=== PATIENT | female | born 1985 | race Caucasian/White ===

== ENCOUNTER 2020-09-25 08:49 | Emergency (ER) | payer OTHER, SELFPAY ==
--- NOTE | ~2020-09-25 | XR_ITS ---
EXAMINATION: XR ankle RT min 3V INDICATION: Right ankle pain and swelling TECHNIQUE: Four views of the right ankle are obtained. COMPARISON: None available FINDINGS: Ankle soft tissue swelling is present. There is no fracture, dislocation, or subluxation. D orsal and plantar calcaneal enthesophytes are noted. IMPRESSION: 1. Ankle soft tissue swelling without acute osseous abnormality identified. Reviewed, dictated and finalized at location A. ECT COACH
--- NOTE | 2020-09-25 09:03 | ED.GENADULT ---
HPI - General Adult General Chief complaint: Extremity Injury, Lower Stated complaint: Extremity Injury, Lower Time Seen by Provider: 09/25/20 09:03 Source: patient Mode of arrival: ambulatory Limitations: no limitations History of Present Illness HPI narrative: 34-year-old female patient presents to the [facility] with complaints of right foot pain x2 days. Patient states that she was working in the yard on Friday and thinks that she slipped off of a break and tripped and caught herself with her right foot. Patient states it really did not start hurting until that evening. Patient states she has been taking Tylenol and ibuprofen as well as elevating it and icing it. Denies any numbness or tingling to the toes of the foot. Related Data Home Medications Medication Instructions Recorded Confirmed aripiprazole 15 mg PO DAILY 09/25/20 09/25/20 trazodone 50 mg PO HS 09/25/20 09/25/20 Allergies Allergy/AdvReac Type Severity Reaction Status Date / Time naproxen Allergy Unknown Difficulty Verified 09/25/20 09:07 Breathing Review of Systems Review of Systems: Narrative: CONSTITUTIONAL: Denies fever, chills, or sweats. EYES: Denies visual changes, redness, or discharge. ENT: Denies rhinorrhea, congestion, sore throat, or otalgia. CARDIOVASCULAR: Denies chest pain, palpitations, or edema. RESPIRATORY: Denies cough or dyspnea. GASTROINTESTINAL: Denies abdominal pain, nausea, vomiting, or diarrhea. GENITOURINARY: Denies dysuria or hematuria. SKIN: Denies rash or itching. MUSCULOSKELETAL: Denies back pain, joint pain, or myalgia. Positive right ankle/foot pain x2 days NEUROLOGIC: Denies headache, numbness, or weakness. PSYCHIATRIC: Denies anxiety or depression. [facility] Past Medical History Medical History (Updated 09/25/20 @ 09:32 by DIANA Mejia) Arthritis Bilateral knees Bipolar disorder IBS (irritable bowel syndrome) Migraines Surgical History Surgical History (Updated 09/25/20 @ 09:05 by DIANA Mejia) History of orthopedic surgery Left knee x3, right knee x2, ligament repair to right foot Family History Family History Mother Patient's mother is in good health Family history of diabetes mellitus in first degree relative Father Patient's father is in good health Malignant neoplasm of prostate Grandparent Family history of coronary artery disease Diabetes mellitus Other Cerebrovascular accident Family history of arthritis Family history of gout Family history of malignant neoplasm of cervix Family history of malignant neoplasm of male breast Family history of mental disorder Hypertension Social History Social History Smoking status: Former smoker Alcohol intake: never Comments At the time of my signature I agree with nursing past medical history, surgical, social, and family history. There is no relevant family history pertinent to the presenting complaint. Exam Narrative: Exam Narrative: GENERAL: Well-appearing, well-nourished, and in no acute distress. HEAD: Normocephalic, atraumatic. EYES: PERRLA and EOMI. ENT: Nares clear, no rhinorrhea or epistaxis. Mucous membranes moist. NECK: Supple. No lymphadenopathy CHEST: Clear to auscultation. No respiratory distress. HEART: Regular rate and rhythm. No murmur heard. Normal peripheral pulses. ABDOMEN: Soft, nontender, nondistended, normal active bowel sounds. EXTREMITIES: Patient is able to bear weight and ambulate but has increased pain to the right foot and ankle. The R ankle is without obvious asymmetry or deformity when compared to the L ankle. Patient has slight pain with flex/extend, invert/clinton. No obvious surface trauma, ecchymosis, soft tissue swelling present to the lateral side of the right ankle. Bony tenderness to palpation over the lateral malleolus. Anterior talofibular ligament, posterior talofib
[2020-09-25 09:08] VITALS: BP 136/76; PULSE 92; RESP 20; TEMP 36.3; O2SAT 98
== END 2020-09-25 09:39 | disposition home or self-care (01) ==
PROVIDERS: Emergency Provider Nurse Practitioner Family; PCP Nurse Practitioner
DX: S93.401A Sprain of unspecified ligament of right ankle, initial encounter (principal); X58.XXXA Exposure to other specified factors, initial encounter; Y93.H2 Activity, gardening and landscaping; M17.0 Bilateral primary osteoarthritis of knee
CPT/HCPCS: 73610; 99203; G0463

== ENCOUNTER 2021-01-11 15:57 | Emergency (ER) | payer OTHER, SELFPAY ==
[2021-01-11 16:05] VITALS: BP 145/84; PULSE 80; RESP 18; TEMP 37; O2SAT 100
--- NOTE | 2021-01-11 16:07 | ED.URI ---
HPI - URI/Sore Throat General Chief Complaint: Upper Respiratory Infection Stated Complaint: Coughing, Chest pain Time Seen by Provider: 01/11/21 16:08 Source: patient and family Mode of arrival: ambulatory History of Present Illness HPI Narrative: PATIENT REPORTS SINUS CONGESTION 3 DAYS AGO WHICH HAS RESOLVED AND NOW HAS CHEST CONGESTION WITH COUGH. NO SHORTNESS OF BREATH AND NO CHEST PAIN. LOSE CONGESTED COUGH. NO FEVER. HAS TAKEN OTC MEDICATION WITH NO IMPROVEMENT. PATIENT HAS BEEN IMMUNIZED FOR COVID 19 AND DOES NOT WISH TO BE TESTED FOR COVID AT THIS VISIT. MD elicited complaint: cough Related Data Home Medications Medication Instructions Recorded Confirmed aripiprazole 15 mg PO DAILY 09/25/20 01/11/21 trazodone 50 mg PO HS 09/25/20 01/11/21 cholecalciferol (vitamin D3) 50 mcg PO DAILY 01/11/21 01/11/21 famotidine 20 mg PO DAILY 01/11/21 01/11/21 ferrous sulfate 325 mg PO DAILY 01/11/21 01/11/21 lamotrigine 25 mg PO HS 01/11/21 01/11/21 Allergies Allergy/AdvReac Type Severity Reaction Status Date / Time naproxen Allergy Unknown Difficulty Verified 09/25/20 09:07 Breathing Review of Systems Review of Systems: Narrative: CONSTITUTIONAL: Denies fever, chills, or sweats. EYES: Denies visual changes, redness, or discharge. ENT: Denies rhinorrhea, congestion, sore throat, or otalgia. CARDIOVASCULAR: Denies chest pain, palpitations, or edema. RESPIRATORY: Denies cough or dyspnea. GASTROINTESTINAL: Denies abdominal pain, nausea, vomiting, or diarrhea. GENITOURINARY: Denies dysuria or hematuria. SKIN: Denies rash or itching. MUSCULOSKELETAL: Denies back pain, joint pain, or myalgia. NEUROLOGIC: Denies headache, numbness, or weakness. PSYCHIATRIC: Denies anxiety or depression. All systems reviewed & are unremarkable except as noted in HPI and below PMFSH Past Medical History Medical History (Updated 01/11/21 @ 16:15 by DIANA Aparicio) Arthritis Bilateral knees Bipolar disorder IBS (irritable bowel syndrome) Migraines Surgical History Surgical History (Updated 09/25/20 @ 09:05 by DIANA Mejia) History of orthopedic surgery Left knee x3, right knee x2, ligament repair to right foot Family History Family History Mother Patient's mother is in good health Family history of diabetes mellitus in first degree relative Father Patient's father is in good health Malignant neoplasm of prostate Grandparent Family history of coronary artery disease Diabetes mellitus Other Cerebrovascular accident Family history of arthritis Family history of gout Family history of malignant neoplasm of cervix Family history of malignant neoplasm of male breast Family history of mental disorder Hypertension Social History Social History Smoking status: Former smoker Alcohol intake: never Gender identity (if verbalized by the patient): Female Comments At time of signature, agree with nursing past medical, surgical, social and family history. There is no relevant family history pertinent to the presenting complaint Exam Narrative: Exam Narrative: GENERAL: Well-appearing, well-nourished, and in no acute distress. HEAD: Normocephalic, atraumatic. EYES: PERRLA and EOMI. ENT: Nares clear, no rhinorrhea or epistaxis. Mucous membranes moist. NECK: Supple. CHEST: Clear to auscultation. No respiratory distress. HEART: Regular rate and rhythm. No murmur heard. Normal peripheral pulses. ABDOMEN: Soft, nontender, nondistended, normal active bowel sounds. EXTREMITIES: Normal range of motion. No edema. SKIN: Warm, dry, no rash. NEURO: No focal deficits. Alert and oriented x3. [place] Coma Scale Eye Opening: Spontaneous 4 [place] Coma Scale Motor: Obeys Commands 6 [place] Coma Scale Verbal: Oriented 5 [place] Coma Scale Total 15 Course Vital Signs Vital signs: Vital Signs Humphrey
[2021-01-11 16:12] VITALS: BP 145/84; PULSE 80; RESP 18; TEMP 37; O2SAT 100
== END 2021-01-11 16:19 | disposition home or self-care (01) ==
PROVIDERS: Emergency Provider Nurse Practitioner Family; PCP Internal Medicine
DX: J40 Bronchitis, not specified as acute or chronic (principal); Z87.891 Personal history of nicotine dependence; F31.9 Bipolar disorder, unspecified; M17.0 Bilateral primary osteoarthritis of knee
CPT/HCPCS: 99213; G0463

== ENCOUNTER 2022-05-10 18:55 | Emergency (ER) | payer OTHER, SELFPAY ==
--- NOTE | ~2022-05-10 | XR_ITS ---
EXAMINATION: XR foot LT min 3V DATE: 05/10/2022 19:13 INDICATION: Left foot injury and pain. TECHNIQUE: 4 views of left foot were obtained. COMPARISON: None. FINDINGS: Bone alignment is normal. No fracture. There is mild osteoarthritis of first metatarsophala ngeal joint and some of the interphalangeal joints. There are enthesophytes at the posterior and plan tar aspects of calcaneal tuberosity. IMPRESSION: 1. Mild polyarticular osteoarthritis. Reviewed, dictated and finalized at location A.
--- NOTE | ~2022-05-10 | XR_ITS ---
EXAMINATION: XR ankle LT min 3V DATE: 05/10/2022 19:13 INDICATION: Inversion injury. Ankle pain and swelling. TECHNIQUE: 4 views of left ankle were obtained. COMPARISON: None. FINDINGS: Bone alignment is normal. No fracture. The ankle joint space is normal. There is ankle soft tissue swelling. IMPRESSION: 1. No fracture. Reviewed, dictated and finalized at location A. IMPRESSION: 1. No fracture.
[2022-05-10 19:00] VITALS: BP 147/83; PULSE 111; RESP 14; TEMP 36.6; O2SAT 99
--- NOTE | 2022-05-10 19:14 | PC.NURSE ---
PT DECLINED ICE FOR COMFORT AND WHEELCHAIR TO RADIOLOGY
--- NOTE | 2022-05-10 19:53 | ED.LOWEXIN ---
HPI - Extremity Injury (Lower) General Chief Complaint: Extremity Injury, Lower Stated Complaint: left foot injury Time Seen by Provider: 05/10/22 19:53 Source: patient, RN notes reviewed and old records reviewed Mode of arrival: ambulatory Limitations: no limitations History of Present Illness HPI Narrative: 36-year-old female who presents to express care with complaints of left foot and ankle pain after stepping off of a curb tripped and fell twisting her ankle and foot. Patient reports that she just had surgery to left lateral foot approximately 1 month ago for removal of extra bone left foot with incision line noted to left lateral foot well approximated with no redness noted. Patient reports that her left foot and ankle are throbbing rates her pain 02/27, has taken some Ibuprofen. Patient is able to ambulate with limping gait states ambulation increases her pain. MD complaint: ankle injury and foot injury Onset (ago): hour(s) (2) Place: street/outdoors Severity scale (1-10): 8 Exacerbating factors: weight bearing and movement Treatments prior to arrival: NSAIDS Related Data Home Medications Medication Instructions Recorded Confirmed famotidine 20 mg tablet 20 mg PO DAILY 01/11/21 05/10/22 ferrous sulfate 325 mg (65 mg 325 mg PO DAILY 01/11/21 05/10/22 iron) tablet cariprazine 3 mg capsule (Vraylar) 3 mg PO DAILY 05/10/22 05/10/22 cholecalciferol (vitamin D3) 50 50 mcg PO DAILY 05/10/22 05/10/22 mcg (2,000 unit) tablet clonazepam 0.5 mg tablet 0.5 mg PO DAILY PRN Anxiety 05/10/22 05/10/22 escitalopram oxalate 20 mg tablet 20 mg PO DAILY 05/10/22 05/10/22 prazosin 1 mg capsule 1 mg PO DAILY 05/10/22 05/10/22 trazodone 100 mg tablet 100 mg PO HS PRN Sleep 05/10/22 05/10/22 Allergies Allergy/AdvReac Type Severity Reaction Status Date / Time naproxen Allergy Unknown Difficulty Verified 05/10/22 19:18 Breathing Review of Systems Review of Systems: CONSTITUTIONAL: Denies fever, chills, or sweats. CARDIOVASCULAR: Denies chest pain, palpitations, or edema. RESPIRATORY: Denies cough or dyspnea. SKIN: Denies rash or itching. Denies laceration or abrasions MUSCULOSKELETAL: Reports pain to her left ankle and left foot after stepping off a curb and falling NEUROLOGIC: Denies numbness, or weakness. All systems reviewed & are unremarkable except as noted in HPI and below PMFSH Past Medical History Medical History (Updated 05/11/22 @ 00:00 by Kristen Daemon) Arthritis Bilateral knees Bipolar disorder IBS (irritable bowel syndrome) Migraines Surgical History Surgical History (Updated 05/11/22 @ 10:38 by Carlota Fitzgerald NP) History of orthopedic surgery Left knee x3, right knee x2, ligament repair to right foot S/P foot surgery, left removal of bone left foot 03/2022 Family History Family History Mother Patient's mother is in good health Family history of diabetes mellitus in first degree relative Father Patient's father is in good health Malignant neoplasm of prostate Grandparent Family history of coronary artery disease Diabetes mellitus Other Cerebrovascular accident Family history of arthritis Family history of gout Family history of malignant neoplasm of cervix Family history of malignant neoplasm of male breast Family history of mental disorder Hypertension Social History Social History Smoking status: Former smoker Alcohol intake: never Gender identity (if verbalized by the patient): Female Comments At time of signature, agree with nursing past medical, surgical, social and family history. There is no relevant family history pertinent to the presenting complaint Exam Narrative: GENERAL: Well-appearing, well-nourished, and in no acute distress. HEAD: Normocephalic, atraumatic. EYES: PERRLA, conjunctivae clear NECK: Supple. CHEST: Speaks in
== END 2022-05-10 20:06 | disposition home or self-care (01) ==
PROVIDERS: Emergency Provider Registered Nurse
DX: S96.912A Strain of unspecified muscle and tendon at ankle and foot level, left foot, initial encounter (principal); W17.89XA Other fall from one level to another, initial encounter; M17.9 Osteoarthritis of knee, unspecified; Z87.891 Personal history of nicotine dependence
CPT/HCPCS: 73610; 73630; 99213; G0463

== ENCOUNTER 2022-05-19 08:51 | Emergency (ER) | payer OTHER, SELFPAY ==
[2022-05-19 08:58] VITALS: BP 154/86; PULSE 89; RESP 20; TEMP 36.8; O2SAT 99
--- NOTE | 2022-05-19 09:48 | ED.URI ---
HPI - URI/Sore Throat General Chief Complaint: Upper Respiratory Infection Stated Complaint: Congestion/Cough/Fever Time Seen by Provider: 05/19/22 09:25 Source: patient, RN notes reviewed and old records reviewed Mode of arrival: ambulatory Limitations: no limitations History of Present Illness HPI Narrative: 36-year-old female who presents to [facility] with complaints of sore throat since Friday with some runny nose and cough and headache.. Patent states that she started on Augmentin yesterday for foot infection.Patient reports that she has had a sore throat since Friday with fever up to 102F. She states that has been taking Chantell [place] cold and flu for her symptoms MD elicited complaint: fever, cough, sore throat, rhinorrhea and nasal congestion Onset (ago): day(s) (5 days) Pain scale (0-10): 8 Able to tolerate fluids by mouth: Yes Treatments prior to arrival: other (Presently on Augmentin for foot infection) Related Data Home Medications Medication Instructions Recorded Confirmed famotidine 20 mg tablet 20 mg PO DAILY 01/11/21 05/19/22 ferrous sulfate 325 mg (65 mg 325 mg PO DAILY 01/11/21 05/19/22 iron) tablet cariprazine 3 mg capsule (Vraylar) 3 mg PO DAILY 05/10/22 05/19/22 cholecalciferol (vitamin D3) 50 50 mcg PO DAILY 05/10/22 05/19/22 mcg (2,000 unit) tablet clonazepam 0.5 mg tablet 0.5 mg PO DAILY PRN Anxiety 05/10/22 05/19/22 escitalopram oxalate 20 mg tablet 20 mg PO DAILY 05/10/22 05/19/22 prazosin 1 mg capsule 1 mg PO DAILY 05/10/22 05/19/22 trazodone 100 mg tablet 100 mg PO HS PRN Sleep 05/10/22 05/19/22 amoxicillin 500 mg-potassium tablet 05/19/22 clavulanate 125 mg tablet Allergies Allergy/AdvReac Type Severity Reaction Status Date / Time naproxen Allergy Unknown Difficulty Verified 05/10/22 19:18 Breathing Review of Systems Review of Systems: CONSTITUTIONAL: Positive malaise, chills, sweats, or fever. EYES: Denies visual changes, redness, or discharge. ENT: Reports rhinorrhea, congestion,no sinus pain, otalgia positive sore throat. CARDIOVASCULAR: Denies chest pain, palpitations, or edema. RESPIRATORY: Reports cough.? Denies dyspnea. GASTROINTESTINAL: Denies abdominal pain, nausea, vomiting, diarrhea SKIN: Denies rash or itching. MUSCULOSKELETAL:Reports myalgia. NEUROLOGIC:Reports headache. All systems reviewed & are unremarkable except as noted in HPI and below PMFSH Past Medical History Medical History (Updated 05/20/22 @ 00:00 by Kristen Daantoni) Arthritis Bilateral knees Bipolar disorder IBS (irritable bowel syndrome) Migraines Surgical History Surgical History (Updated 05/11/22 @ 10:38 by Carlota Fitzgerald NP) History of orthopedic surgery Left knee x3, right knee x2, ligament repair to right foot S/P foot surgery, left removal of bone left foot 03/2022 Family History Family History Mother Patient's mother is in good health Family history of diabetes mellitus in first degree relative Father Patient's father is in good health Malignant neoplasm of prostate Grandparent Family history of coronary artery disease Diabetes mellitus Other Cerebrovascular accident Family history of arthritis Family history of gout Family history of malignant neoplasm of cervix Family history of malignant neoplasm of male breast Family history of mental disorder Hypertension Social History Social History Smoking status: Former smoker Alcohol intake: never Gender identity (if verbalized by the patient): Female Comments At time of signature, agree with nursing past medical, surgical, social and family history. There is no relevant family history pertinent to the presenting complaint Exam Narrative: GENERAL: Well-appearing, well-nourished, and in no acute distress. HEAD: Normocephalic EYES: PERRLA, conjunctivae tripp
== END 2022-05-19 10:15 | disposition home or self-care (01) ==
PROVIDERS: Emergency Provider Registered Nurse
DX: J02.0 Streptococcal pharyngitis (principal); Z20.822 Contact with and (suspected) exposure to COVID-19; M17.0 Bilateral primary osteoarthritis of knee
CPT/HCPCS: 87426; 87804; 87880; 99213; C9803; G0463

== ENCOUNTER 2023-10-14 14:39 | Emergency (ER) | payer OTHER, SELFPAY ==
--- NOTE | ~2023-10-14 | XR_ITS ---
EXAMINATION: XR chest 2V DATE: 10/14/2023 16:08 INDICATION: Cough. TECHNIQUE: PA and lateral views of the chest were obtained. COMPARISON: None FINDINGS: Airspace opacities in the lingula and possibly also in the right middle lobe which could represent at electasis or pneumonia. Approximately 1 cm subtle nodular opacity at the lateral basilar right lower lobe. No pleural effusion or pneumothorax. The cardiomediastinal silhouette is normal. Mild thoracic spondylosis. IMPRESSION: 1. Opacities in the lingula and possibly also the right middle lobe which could represent atelectasis or pneumonia. 2. Approximately 1 cm right lower lobe nodule. Recommend further evaluation with low-dose noncontrast chest CT. Reviewed, dictated and finalized at location A. IMPRESSION: 1. Opacities in the lingula and possibly also the right middle lobe which could represent atelectasis or pneumonia. 2. Approximately 1 cm right lower lobe nodule. Recommend further evaluation wit h low-dose noncontrast chest CT.
[2023-10-14 14:48] VITALS: BP 142/80; PULSE 101; RESP 20; TEMP 37.2; O2SAT 98
--- NOTE | 2023-10-14 15:33 | ED.URI ---
HPI - URI/Sore Throat General Chief Complaint: Unspecified Stated Complaint: painful breathing Time Seen by Provider: 10/14/23 15:31 Source: patient, RN notes reviewed and old records reviewed Mode of arrival: ambulatory Limitations: no limitations History of Present Illness HPI Narrative: 37-year-old female to Express Care for complaint right shoulder and right upper chest discomfort when taking a deep breath for 2 days. Patient endorses history of pneumonia and states that this is how she usually feels prior to pneumonia diagnosis. Patient denies chest pain or shortness of breath. Patient denies cough, fever, sore throat, GI complaints. Patient able to tolerate fluids by mouth. On exam patient in no acute distress. Respirations even and nonlabored. Patient able to speak in full sentences Related Data Home Medications Medication Instructions Recorded Confirmed escitalopram oxalate 20 mg tablet 20 mg PO DAILY 05/10/22 10/14/23 prazosin 1 mg capsule 1 mg PO DAILY 05/10/22 10/14/23 trazodone 100 mg tablet 100 mg PO HS PRN Sleep 05/10/22 10/14/23 losartan 25 mg tablet 25 mg PO DAILY 10/14/23 10/14/23 lurasidone 80 mg tablet 80 mg PO DAILY 10/14/23 10/14/23 Allergies Allergy/AdvReac Type Severity Reaction Status Date / Time naproxen Allergy Unknown Difficulty Verified 10/14/23 15:26 Breathing Review of Systems Review of Systems: All systems reviewed & are unremarkable except as noted in HPI and below Constitutional: Constitutional: Reports as per HPI, Denies body ache(s), Denies chills, Denies fatigue and Denies fever(s) Eyes: Eyes: Reports no additional eye complaints ENT: Reports system reviewed and no additional complaints, except as documented and Denies sore throat Cardiovascular: Cardiovascular: Reports no additional cardiovascular complaints, Denies chest pain and Denies dyspnea Respiratory: Respiratory: Reports no additional respiratory complaints, Denies cough, Reports pain on inspiration and Denies dyspnea Musculoskeletal: Musculoskeletal: Reports no additional musculoskeletal complaints Neurologic: Reports system reviewed and no additional complaints, except as documented Psychiatric: Psychiatric: Reports no additional psychiatric complaints PMFSH Past Medical History Medical History Arthritis Bilateral knees Bipolar disorder IBS (irritable bowel syndrome) Migraines Surgical History Surgical History History of orthopedic surgery Left knee x3, right knee x2, ligament repair to right foot S/P foot surgery, left removal of bone left foot 03/2022 Family History Family History Mother Patient's mother is in good health Family history of diabetes mellitus in first degree relative Father Patient's father is in good health Malignant neoplasm of prostate Grandparent Family history of coronary artery disease Diabetes mellitus Other Cerebrovascular accident Family history of arthritis Family history of gout Family history of malignant neoplasm of cervix Family history of malignant neoplasm of male breast Family history of mental disorder Hypertension Social History Social History Smoking status: Former smoker Alcohol intake: never Gender identity (if verbalized by the patient): Female Comments At the time of my signature, I reviewed and agree with the nursing past medical, surgical, social, and family history. There is no relevant family history pertinent to the patient complaint. Exam Const: General: cooperative, no acute distress, alert, poor hygiene, tired appearing, uncomfortable, well nourished and obese; No in distress Nutritional Appearance: well nourished Orientation/consciousness: patient oriented x3 Limitations: no
== END 2023-10-14 16:47 | disposition home or self-care (01) ==
PROVIDERS: Emergency Provider Nurse Practitioner Family
DX: J18.9 Pneumonia, unspecified organism (principal); M17.0 Bilateral primary osteoarthritis of knee; F31.9 Bipolar disorder, unspecified
CPT/HCPCS: 71046; 99213; G0463

== ENCOUNTER 2023-11-02 12:53 | Emergency (ER) | payer OTHER, SELFPAY ==
--- NOTE | ~2023-11-02 | XR_ITS ---
EXAMINATION: XR chest 2V DATE: 11/02/2023 13:18 INDICATION: Cough. TECHNIQUE: PA and lateral views of the chest were obtained. COMPARISON: Chest radiograph dated 10/14/2023 FINDINGS: 1.5 similar nodular opacity at the right costophrenic angle no other airspace opacities, pulmonary ed brittny, pleural effusion or pneumothorax. The cardiomediastinal silhouette is normal. Mild thoracic spon dylosis. IMPRESSION: 1. Indeterminate 1.5 cm nodular opacity projecting over the right costophrenic angle. Recommend chest CT for further evaluation. Reviewed, dictated and finalized at location A.
[2023-11-02 12:59] VITALS: BP 117/63; PULSE 80; RESP 20; TEMP 37; O2SAT 95
--- NOTE | 2023-11-02 13:10 | ED.URI ---
HPI - URI/Sore Throat General Chief Complaint: Upper Respiratory Infection Stated Complaint: Cough History of Present Illness HPI Narrative: Patient presents with a pretty productive cough shortness of breath at times. Patient states she was treated for pneumonia almost 1 month ago thinks she felt better after the medication but feels the same as she did before. Patient states she did follow-up with her PCP and has been cleared to have bariatric surgery the end of this month. Patient is a nonsmoker denies any lung problems and is not taking anything [id number] for her symptoms per Related Data Home Medications Medication Instructions Recorded Confirmed escitalopram oxalate 20 mg tablet 20 mg PO DAILY 05/10/22 10/14/23 prazosin 1 mg capsule 1 mg PO DAILY 05/10/22 10/14/23 trazodone 100 mg tablet 100 mg PO HS PRN Sleep 05/10/22 10/14/23 losartan 25 mg tablet 25 mg PO DAILY 10/14/23 10/14/23 lurasidone 80 mg tablet 80 mg PO DAILY 10/14/23 10/14/23 Allergies Allergy/AdvReac Type Severity Reaction Status Date / Time naproxen Allergy Unknown Difficulty Verified 10/14/23 15:26 Breathing Review of Systems Review of Systems: CONSTITUTIONAL: Denies fever, chills, or sweats. EYES: Denies visual changes, redness, or discharge. ENT: Denies rhinorrhea, congestion, sore throat, or otalgia. CARDIOVASCULAR: Denies chest pain, palpitations, or edema. RESPIRATORY: Denies cough or dyspnea. GASTROINTESTINAL: Denies abdominal pain, nausea, vomiting, or diarrhea. GENITOURINARY: Denies dysuria or hematuria. SKIN: Denies rash or itching. MUSCULOSKELETAL: Denies back pain, joint pain, or myalgia. NEUROLOGIC: Denies headache, numbness, or weakness. PSYCHIATRIC: Denies anxiety or depression. [facility] [place] Past Medical History Medical History Arthritis Bilateral knees Bipolar disorder IBS (irritable bowel syndrome) Migraines Surgical History Surgical History History of orthopedic surgery Left knee x3, right knee x2, ligament repair to right foot S/P foot surgery, left removal of bone left foot 03/2022 Family History Family History Mother Patient's mother is in good health Family history of diabetes mellitus in first degree relative Father Patient's father is in good health Malignant neoplasm of prostate Grandparent Family history of coronary artery disease Diabetes mellitus Other Cerebrovascular accident Family history of arthritis Family history of gout Family history of malignant neoplasm of cervix Family history of malignant neoplasm of male breast Family history of mental disorder Hypertension Social History Social History Smoking status: Former smoker Alcohol intake: never Gender identity (if verbalized by the patient): Female Comments At time of signature, agree with nursing past medical, surgical, social and family history. There is no relevant family history pertinent to the presenting complaint Exam Narrative: GENERAL: Well-appearing, well-nourished, and in no acute distress. HEAD: Normocephalic, atraumatic. EYES: PERRLA and EOMI. ENT: Nares clear, no rhinorrhea or epistaxis. Mucous membranes moist. NECK: Supple. CHEST: Lungs diminished in bases with few scattered expiratory wheezes. No respiratory distress. HEART: Regular rate and rhythm. No murmur heard. Normal peripheral pulses. ABDOMEN: Soft, nontender, nondistended, normal active bowel sounds. EXTREMITIES: Normal range of motion. No edema. SKIN: Warm, dry, no rash. NEURO: No focal deficits. Alert and oriented x3. [place] Coma Scale Eye Opening: Spontaneous 4 [place] Coma Scale Motor: Obeys Commands 6 Eryn Coma Scale Verbal: Oriented 5 [place]ryn Coma Scale Total 15 Course Cour
== END 2023-11-02 14:04 | disposition home or self-care (01) ==
PROVIDERS: Emergency Provider Nurse Practitioner Family; PCP Family Medicine
DX: J18.9 Pneumonia, unspecified organism (principal); Z87.891 Personal history of nicotine dependence; M17.0 Bilateral primary osteoarthritis of knee; F31.9 Bipolar disorder, unspecified
CPT/HCPCS: 71046; 99213; G0463

== ENCOUNTER 2024-10-09 08:20 | Emergency (ER) | payer OTHER, SELFPAY ==
--- OUTSIDE RECORDS SUMMARY | 2024-10-09 08:23 | XMS_ITS | Clinical Summary ---
Author Organization [facility] Address [address] [place] [address] Care Team Providers Care Junior Accountant Name Role Phone Unavailable Primary Care Provider Unavailabl e Source Comments [facility],non-owned Affiliates and Associated Physician Practices is amultiple site organization consisting of ambulatory clinics and hospital sitesin [place], [place], [place] and [place]. This disclosure is being madepursuant to the Care Everywhere program and may not contain all information available regarding this patient. Last updated 18.[facility] Allergies Active Allergy Reactions Criticality Noted Date Comments Naproxen Shortness of Breath High 03/21/2020 Medications Be aware that medications may not be up to date on this document. Always verify current medications with the patient. No known medications Active Problems No known active problems Social History Tobacco Use Types Packs/Day Years Used Date Smoking Tobacco: Never Smokeless Tobacco: Never Alcohol Use Standard Drinks/Week Comments Yes 0 (1 standard drink = 0.6 oz pur e alcohol) AUDIT-C Answer Date Recorded Q1: How often do you have a drink containing alc ohol? 2-4 times a month 03/21/2020 Average Number of Drinks Not on file 020 Frequency of Binge Drinking Not on file 07/2019 Sex and Gender Information Value Date Recorded Sex Assigned at Not on file Gender Identity Not on file Sexual Orientation Not on file Last Filed Vital Signs Vital Sign Reading Time Taken Comments Blood Pressure - - Pulse - - Temperature - - Respiratory Rate - - Oxygen Saturation - - Inhaled Oxygen Concentration - - Weight 141.5 kg (312 lb) 03/21/2020 2:25 PM CDT Height 154.9 cm (5' 1 ) 03/21/2020 2:25 PM CDT Body Mass Index 58.95 03/21/2020 2:25 PM CDT Plan of Treatment Health Maintenance Due Date Last Done Comments PAP SMEAR 1986 HIV SCREENING 2001 HEPATITIS C SCREENING 10/24/2004 DTAP/TDAP/TD VACCINES (1 - Tdap) 2005 HEPATITIS B VACCINE (1 of 3 - 19+ 3-dose series) 2005 COVID-19 VACCINE ( - 2023-2 5 season) 2024 INFLUENZA VACCINE (#1) 2024 9, 05/14/2018, 03/29/2014 DEPRESSION SCREENING 07/21/2024 ZOSTER VACCINE (1 of 2) 2036 HIB VACCINE Aged Out No longer eligi ble based on patient's age to complete this topic HPV VACCINE Aged Out No longer eligi ble based on patient's age to complete this topic MENINGOCOCCAL (Group B) VACCINE SHARED DECISION-MAKING Aged Out No longer eligible based on patient's age to complete this topic MENINGOCOCCAL GROUPS A/C/Y/W VACCINE Aged Out No longer eligible b ased on patient's age to complete this topic PNEUMOCOCCAL VACCINE Aged Out No long er eligible based on patient's age to complete this topic Goals Goal Patient Goal Type Associated Problems Recent Progress Patient-Stated? Author Mobility General No Bianka Miramontes RN Note: Expected end date: 05/20/2020 The goal is to maintain or improve your mobility at the optimum level for you. Interventions:
--- OUTSIDE RECORDS SUMMARY | 2024-10-09 08:23 | XMS_ITS | Clinical Summary ---
Author Organization [facility] Medical Office Building [address] Address [address] [place] [address] Care Team Providers [employer] Name Role Phone Sabrina Ferreira DPM Unavailable [phone] Laina Terrell PT Unavailable Unavailable Kenia Villagomez MD PhD Unavailable Tello Pacheco MD Unavailable [phone] Faye Paul MD Primary Care Provide r Allergies Active Allergy Reactions Criticality Noted Date Comments Naltrexone-Bupropion Other (See comments) Low 09/15 Patient states she felt dizzy and shaky on this medication Naproxen Shortness of breath High 10/01/2019 Topiramate Anaphylaxis High 09/08/2024 She states she had trouble breathing and in hospital for this reaction. Was being used for migraine prevention. Venom-Honey Bee Shortness of breath,Nausea And Vomiting High 01/29/2018 Medications hydrOXYzine (VISTARIL) 25 mg capsuleIndications :anxiety Take 1 capsule (25 mg total) by mouth 4 (four) times a day as needed for anxiety 12/16/19 23 Active escitalopram (LEXAPRO) 20 mg tablet TAKE 1 TABLET BY MOUTH EVERY DAY FOR 30 DAYS 02/20/20 23 Active prazosin (MINIPRESS) 2 mg capsuleIndications :Chronic PTSD with Trauma Nightmares Take 1 capsule (2 mg total) by mouth nightly as needed 02/22/20 23 Active lurasidone (LATUDA) 80 mg tabletIndications: Schizophrenia Take 1 tablet (80 mg total) by mouth nightly 06/29/20 Active ergocalciferol (VITAMIN D) 50,000 unit capsule Take 1 capsule (50,000 Units total) by mouth once a week 12 capsule 09/15/19 24 Active Additional Information Patient taking differently:50,000 Units oral Weekly,Indications: supplement, Informant: Self, Reported on 06/03/2024 cyclobenzaprine (FLEXERIL) 10 mg tabletIndications: Muscle Spasm Take 1 tablet (10 mg total) by mouth every 8 (eight) hours Post surgery: Every 8 hours for 4 days 12 tablet 11/05/19 24 Active cyanocobalamin (Vitamin B-12) 500 mcg tabletIndications: Prevention of Vitamin B12 Deficiency Take 1 tablet (500 mcg total) by mouth daily Start post Surgery 90 tablet 3 11/05/19 24 Active ferrous sulfate 325 mg (65 mg of elemental iron) tabletIndications: Iron Deficiency Anemia Take 1 tablet (325 mg total) by mouth daily Start post-surgery. Take with food and avoid taking within 2 hours of calcium 90 tablet 3 11/05/19 24 025 Active calcium citrate-vitamin D3 200 mg-6.25 mcg (250 unit) tabletIndications: Hypocalcemia Prevention Take 2 tablets by mouth 3 (three) times a day Start post-surgery 540 tablet 3 11/05/19 24 025 Active multivitamin with iron-mineral tablet Take 2 tablet/capsule by mouth daily Start Post Surgery 180 tablet 3 11/05/19 24 025 Active losartan (COZAAR) 25 mg tablet TAKE 1 TABLET (25 MG TOTAL) BY MOUTH DAILY. 90 tablet 1 04/12/20 24 Active clonazePAM (KlonoPIN) 0.5 mg disintegrating tablet 0 04/05/20 24 Active lurasidone (LATUDA) 20 mg tablet 04/05/20 24 Active traZODone (DESYREL) 100 mg tablet 04/05/20 24 Active naltrexone (DEPADE) 50 mg tabletIndications: Binge eating,BMI 45.0-49.9, adult (HCC) Take 0.5 tablets (25 mg total) by mouth daily for 7 days, THEN 1 tablet (50 mg total) daily. 30 tablet 1 09/08/19 25 025 Discontin ued(Other ) Active Problems Problem Noted Date Diagnosed Date Nausea and vomiting 01/06/2024 Lung nodule 11/25/2023 Assessment & Plan (11/25/2023 12:18 PM CDT): New concern Seen on xray Will need a ct scan in 1 year according to report Will scan report into the system Ct scan orderede Status post bariatric surgery 11/24/2023 Prediabetes 08/14/2023 Assessment & Plan (08/14/2023 12:05 PM METAL FRAMER): Lab Results Component Value Date HGBA1C 6.2 (H) 08/06/2023 Stable Continue to monitor Other insomnia 05/06/2023 Assessment & Plan (05/06/2023 2:11 PM CDT): Chronic, multifactorial due to untreated obstructive sleep apnea and mood disorder. Trial of doxepin for sleep maintenance insomnia. May consider temazepam in future, though this would require discontinuing clonazepam use at bedtime. Post traumatic stress disorder (PTSD) 04/07/2023 Schizoaffective disorder 04/07/2023 Preop examination 03/10/2023 Assessment & Plan (10/21/2023 3:37 PM CDT): She understands that no procedure is risk-free but accepts those as discussed during OV and wishes to proceed. She was instructed to contact us if any new symptoms or problems arise between now and surgery date. According to the RCRI, the patient's number of risk factors stratifies patient to class III, which carries a 10.1% risk of major cardiovascular complications She is medically optimized for surgery Assessment & Plan (07/04/2023 8:13 AM METAL FRAMER): Pt comes in at behest of Dr. Pacheco for preoperative evaluation. She will be having Gastric Bypass She denies chest pain, palpitations, dyspnea on exertion, or any other symptoms. She understands that no procedure is risk-free but accepts those as discussed during OV and wishes to proceed. She was instructed to contact us if any new symptoms or problems arise between now and surgery date. According to the RCRI, the patient's number of risk factors stratifies patient to class 1, which carries a 3.9% risk of major cardiovascular complications Patient denies any hx of complications with anesthesia, states she has never been told she has difficult airway. My medical standpoint patient is medically stable and cleared for gastric by pass surgery- pending CXR results. This preop clearance is only good for 30 days from today's examination. If surgery scheduled past 30 days from this visit, she was advised that she would need to be seen again for preop clearance. Arthritis 03/03/2023 Skin lesion of right leg 02/19/2023 Assessment & Plan (02/19/2023 9:49 AM CDT): New Low suspicion for cancer Possible ingrown hair Referral to derm given Blurry vision 12/27/2022 Assessment & Plan (12/27/2022 2:52 PM CDT): Follows with quality assurance for the dilation exam CT of the head stat to rule out any mass Follow-up in 2 weeks or sooner for worsening symptoms Nocturia 12/27/2022 Assessment & Plan (02/19/2023 9:40 AM CDT): No improvement even after stopping the lasix Had UA done at last visit Lab Results Component Value Date HGBA1C 6.1 (H) 10/09/2022 Referral to urology Follow-up prn Assessment & Plan (12/27/2022 2:54 PM CDT): New worsening Likely from the Lasix CMP ordered POCT glucose in office 107 UA show blood from patient being on her cycle, no other signs of infection Lab Results Component Value Date HGBA1C 6.1 (H) 10/09/2022 Stop the Lasix and only take it as needed Follow-up in 2 weeks Chronic midline thoracic back pain 11/05/2022 Assessment & Plan (11/05/2022 2:46 PM CDT): Chronic possible from fall and weight gain combined Not improving Xray of the thoracic and lumbar spine Physical therapy Continue with tylneol and ibuprofen as needed F/u in 2 months Leg swelling 11/05/2022 Assessment & Plan (11/05/2022 3:00 PM CDT): New worsening cmp unremarkable Recommend compression socks for swelling Lasix 40mg as needed Echo ordered F/u in 2 weeks Deep vein thrombosis (DVT) of lower extremity Overview (11/20/2023): Provoked Completed 6 months of AC Assessment & Plan (11/05/2022 2:32 PM CDT): Provoked dvt 2/2 foot surgery Complete total 6 months of xarelto Will be done in february Assessment & Plan (09/04/2022 1:46 PM METAL FRAMER): Provoked dvt 2/2 foot surgery Continue xarelto for 6 months Pressure in head 05/13/2022 Assessment & Plan (05/13/2022 9:56 AM CDT): Likely 2/2 to increase stress and elevated bp See htn recommendation Acute left ankle pain 05/13/2022 Assessment & Plan (05/13/2022 9:58 AM CDT): 2/2 fall Xray at [facility] negative for fracture Rest ice compress and elevate F/u in 1 month. If no improvement will get MRI to evaluate for ligament tear Numbness and tingling of right arm 01/24/2022 Assessment & Plan (01/24/2022 3:07 PM CDT): EMG/NCS for R forearm and hand numbness and tingling Cbc, cmp, iron panel and vitamin b12 ordered tsh F/u in 1 month Family history of cirrhosis of liver 01/24/2022 Assessment & Plan (02/19/2023 9:38 AM CDT): Will get cmp in June for monitoring Assessment & Plan (01/24/2022 3:10 PM CDT): Bilirubin, AST, ALt, alk phos have been wnl Will continue to closely monitor Mother's business services vice president recommended she come and be seen Encounter for wellness examination 11/13/2021 Assessment & Plan (11/24/2023 12:45 PM CDT): Ordered CBC, cmp, lipid, hgb a1c, vit d Pap smear up to date F/u in 1 year for annual Assessment & Plan (11/04/2022 9:37 PM CDT): Ordered CBC, cmp, lipid, hgb a1c, Pap smear up to date F/u in 1 year for annual Assessment & Plan (11/13/2021 10:48 AM CDT): Will get labs from previous office done 1 week ago rtc in 2 weeks for pap F/u in 1 year for annual Epigastric pain 11/13/2021 Assessment & Plan (11/13/2021 10:49 AM CDT): Endoscopy 1 year ago showed healing ulcer H.pylori test negative 1 year ago Continue pepcid as needed Start omeprazole daily F/u in 2 months If no improvement will refer to GI Recurrent major depressive disorder, in remissio n 11/13/2021 Assessment & Plan (11/24/2023 12:46 PM CDT): Stable In remission Continue with lexapro 10mg daily Follows with psychiatry Assessment & Plan (11/04/2022 9:28 PM CDT): Stable In remission Continue with lexapro 10mg daily Follows with psychiatry Assessment & Plan (11/13/2021 10:52 AM CDT): Stable In remission Continue with lexapro 10mg daily Follows with psychiatry Referred otalgia of left ear 02/16/2021 Assessment & Plan (02/17/2021 4:31 PM CDT): Doxycycline twice daily Call dental office Peridex mouth swish and spit after meals and before bedtime Softer diet, avoid chewing with these teeth Ibuprofen 400 mg and Tylenol 500 mg every 4-6 hours as needed for pain Plantar fascial fibromatosis 12/05/2020 Overview (12/05/2020): Added automatically from request for surgery [id number] Calcaneal spur of left foot 12/05/2020 Overview (12/05/2020): Added automatically from request for surgery [id number] Pulsatile tinnitus of right ear 10/17/2020 Assessment & Plan (02/17/2021 4:31 PM CDT): New referral placed to Otology for Right pulsatile tinnitus and dehiscent jugular bulb per CT temporal bone Assessment & Plan (10/17/2020 10:03 AM CDT): Referral to Otology regarding dehiscent jugular bulb and Right sided pulsatile tinnitus Continue to work on blood pressure Tinnitus of right ear 08/21/2020 Assessment & Plan (08/21/2020 2:16 PM METAL FRAMER): Hearing test CT Angiogram Head and Neck - call with results Avoid salt or salt containing foods and fluids Shoulder pain, left 04/21/2020 Positive cardiac stress test 02/25/2020 Other chest pain 02/25/2020 Assessment & Plan (03/07/2022 12:19 PM CDT): EKG in office showed normal sinus rhythm Sent to emergency room to rule out ACS given her hx F/u after ER visit Pain in both feet 10/01/2019 Acute otitis media 03/02/2019 ADHD 06/16/2018 Assessment & Plan (11/24/2023 12:46 PM CDT): Continue following with psych Assessment & Plan (11/04/2022 9:29 PM CDT): Continue following with psych Chronic left shoulder pain 06/16/2018 Restless leg 06/16/2018 Metatarsal stress fracture of left foot 05/19/20 18 Low back pain 01/29/2018 Assessment & Plan (02/19/2023 9:46 AM CDT): Initially improved with PT Now worsening Declines pain management Referral to physical therapy given F/u prn Pes equinus, acquired 11/11/2017 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 In addition, recommend COVID testing. Self-isolate 10 days from start of symptoms Increase fluid intake Report new or worsening symptoms Warning signs warranting immediate medical care: chest pain, trouble breathing, worsening shortness of breath Iron deficiency anemia 05/19/2014 Assessment & Plan (08/14/2023 12:08 PM METAL FRAMER): EGD showed some gastritis but no signs of bleeding Colonoscopy showed some polyps Continue iron supplements and monitoring Assessment & Plan (11/05/2022 2:37 PM CDT): EGD and colonoscopy have been negative in the past She had iron transfusions in the past The work up has been negative Vitamin B12 deficiency 05/13/2014 Pain in left knee 09/10/2013 Bipolar 1 disorder Assessment & Plan (11/24/2023 12:46 PM CDT): Stable Follows with psychiatry Continue with vraylar 4.5mg daily Assessment & Plan (11/04/2022 9:29 PM CDT): Stable Follows with psychiatry Continue with vraylar 4.5mg daily Assessment & Plan (11/13/2021 10:45 AM CDT): Stable Follows with psychiatry Continue with vraylar 4.5mg daily Acute chest pain Gastroesophageal reflux disease without esophagi tis Assessment & Plan (11/24/2023 12:46 PM CDT): Continue pepcid Assessment & Plan (11/04/2022 9:28 PM CDT): Continue pepcid Obstructive sleep apnea Assessment & Plan (11/24/2023 12:47 PM CDT): Continue cpap Assessment & Plan (05/06/2023 2:10 PM CDT): Chronic, mild by HST diagnosed in 2019. At this point patient is intolerant to PAP due to claustrophobia and anxiety, even with efforts at mask desensitization. She is not confident that a different style masks such as a nasal cushion mask would be any better tolerated. She has severe TMJ which likely prohibits mandibular advancement therapy. Her BMI and AHI under 15 exclude her from inspire. In reviewing her prior sleep study, it appears that the majority of respiratory events occurred during supine sleep. We discussed the possibility that lateral positional therapy may be adequate for the treatment of obstructive sleep apnea. She was given information for techniques to ensure she remains lateral during sleep. We will plan to repeat an in-lab polysomnogram to evaluate for effective treatment with positional therapy. In-lab polysomnogram is preferred due to difficulty completing the at home test and effectively connecting the equipment. Assessment & Plan (03/06/2023 12:47 PM CDT): Chronic, mild by HST diagnosed in 2019. Previously treated effectively with CPAP with symptomatic benefit. Will clarify for bariatric surgery requirements whether a more recent updated sleep study is needed to reestablish the diagnosis. I have no doubt patient still has obstructive sleep apnea. In the meantime we will plan to resume PAP. A new mask has been ordered for better fit and improved comfort. If repeat sleep testing is needed, would favor in-lab attended polysomnogram. Assessment & Plan (11/05/2022 2:33 PM CDT): Continue cpap Primary hypertension Assessment & Plan (06/03/2024 12:10 PM METAL FRAMER): Bp in the office today BP Readings from Last 1 Encounters: 06/03/24 136/82 Continue current regimen of lsoartan 25mg daily Recommend DASH diet, heart-healthy lifestyle, exercise. Discussed the risks of hypertension. F/u in 6 months Assessment & Plan (11/25/2023 11:03 AM CDT): Bp in the office today BP Readings from Last 1 Encounters: 11/25/23 124/72 Continue current regimen of lsoartan 25mg daily Recommend DASH diet, heart-healthy lifestyle, exercise. Discussed the risks of hypertension. F/u in 6 months Assessment & Plan (08/14/2023 12:05 PM METAL FRAMER): Bp in the office today BP Readings from Last 1 Encounters: 07/31/23 119/64 Continue current regimen of lsoartan 25mg daily Recommend DASH diet, heart-healthy lifestyle, exercise. Discussed the risks of hypertension. F/u at annual in october Assessment & Plan (03/10/2023 8:47 AM CDT): Bp in the office today BP Readings from Last 1 Encounters: 03/10/23 130/80 Continue current regimen of lsoartan 25mg daily Recommend DASH diet, heart-healthy lifestyle, exercise. Discussed the risks of hypertension. F/u 6 months Assessment & Plan (02/19/2023 9:39 AM CDT): Bp in the office today BP Readings from Last 1 Encounters: 02/19/23 110/72 Continue current regimen of lsoartan 25mg daily Recommend DASH diet, heart-healthy lifestyle, exercise. Discussed the risks of hypertension. F/u 4 months Assessment & Plan (12/25/2022 6:47 AM CDT): Bp in the office today BP Readings from Last 1 Encounters: 11/05/22 130/80 Continue current regimen of lsoartan 25mg daily Recommend DASH diet, heart-healthy lifestyle, exercise. Discussed the risks of hypertension. F/u 3 months Assessment & Plan (11/05/2022 2:31 PM CDT): Bp in the office today BP Readings from Last 1 Encounters: 11/05/22 130/80 Continue current regimen of lsoartan 25mg daily Recommend DASH diet, heart-healthy lifestyle, exercise. Discussed the risks of hypertension. F/u 3 months Assessment & Plan (09/04/2022 1:54 PM METAL FRAMER): Bp in the office today BP Readings from Last 1 Encounters: 09/04/22 130/70 Continue current regimen of lsoartan 25mg daily Recommend DASH diet, heart-healthy lifestyle, exercise. Discussed the risks of hypertension. F/u at annual visit Assessment & Plan (05/13/2022 9:56 AM CDT): Bp in the office today BP Readings from Last 1 Encounters: 05/13/22 146/82 goal of <130/80 Start losartan 25mg daily Recommend DASH diet, heart-healthy lifestyle, exercise. Discussed the risks of hypertension. F/u in 1 month Resolved Problems Problem Noted Date Diagnosed Date Resolved Date Morbid obesity with body mas s index of 60.0-69.9 in adult 07/04/2023 05/12/2024 Assessment & Plan (10/21/2023 3:36 PM CDT): Chronic problem-worsening Patient is being scheduled for gastric bypass with Dr. Pacheco Cxr unremarkable Patient medically stable and cleared for procedure Patient has been cleared by cardiology Assessment & Plan (07/04/2023 8:04 AM METAL FRAMER): Chronic problem-worsening Patient is being scheduled for gastric bypass with Dr. Pacheco Ordered CXR for preop clearance Patient medically stable and cleared for procedure pending CXR results Patient has been cleared by cardiology Patient encouraged to call her surgeon office and request preop clearance form be faxed to this office- will complete and fax back once CXR results obtained and reviewed Follow up with pcp as scheduled Encounter for screening colonoscopy 04/25/2023 11/20/2023 BMI 60.0-69.9, adult 03/03/2023 024 Assessment & Plan (03/10/2023 8:57 AM CDT): She was counseled on the importance of maintaining a healthy weight and the risks of obesity. Weight loss recommended. Encourage 150min/ week of exercise Encourage 1500 calories in a day for weight loss Will get bariatric surgery Ordered labs and studies. Referral for cardiac clearance. Explained should be closer to surgery date Morbid obesity 03/03/2023 11/24/2023 Cervical cancer screening 11/26/2021 Assessment & Plan (11/26/2021 3:54 PM CDT): She was instructed to contact us in a week for pap smear results and was counseled on routine screenings. The USPSTF recommends against teaching breast self-examination (BSE). This is a D recommendation. The USPSTF concludes that the current evidence is insufficient to assess the additional benefits and harms of clinical breast examination (CBE) beyond screening mammography in women 40 years or older Heartburn 04/17/2021 05/01/2021 Overview (04/17/2021): Added automatically from request for surgery [id number] Morbid obesity with BMI of 50.0-59.9, adult 11/24/2023 Assessment & Plan (03/07/2022 12:03 PM CDT): Will think do some research on wellbutrin and naltrexone and call back if she decides to start medication Assessment & Plan (01/24/2022 3:08 PM CDT): Is interested in weightloss medication Has been working out5 days a week and changed her diet She would be willing to do ozempic as an option Assessment & Plan (05/01/2021 8:24 AM CDT): The patient has done well having lost roughly 16 lb over 6 months in preparation. We discussed the findings on EGD of some gastritis, duodenitis and some healing ulcers. H pylori was negative. We will put her on a PPI for several weeks to try and heal these areas prior to surgery. We will submit everything for insurance for approval. We have gone over the preoperative diet in preparation for surgery. Once the approval has been met a surgical date will be chosen. All questions answered. Postoperative length of stay has been discussed as well as postoperative restrictions and time off of work. Assessment & Plan (04/03/2021 9:58 AM CDT): This is the patient's 5th visit we will set her up for an EGD now to look for H pylori or hiatal hernia. She will continue with small frequent meals as she has continued to do well with small losses throughout this entire procedure. We will see her back next month. Assessment & Plan (03/06/2021 9:24 AM CDT): The patient will continue her small frequent meals, trying to eliminate soda and exercise as tolerates. We will see her back next month. She will call sooner if any significant changes or other issues arise Assessment & Plan (01/23/2021 10:03 AM CDT): We discussed with the patient again the 20% or so risk of new or worsening reflux after a sleeve gastrectomy. The patient at her initial visit states that she rarely will have issues with reflux may be on a monthly basis the really only started when she started gaining weight. However I discussed that I do want her to be comfortable with her decision. We discussed that she will be tested for a hiatal hernia to ensure this would not contribute to the symptoms after surgery. But despite the trying to control everything we can again there is still roughly a 20% chance. I am happy to make a referral for her [facility] as we are not doing the bypass here. She is going to think about her choice and let us know going forward. Assessment & Plan (12/26/2020 9:15 AM CDT): We have stressed that with her limited mobility the only way that she is going to really effectively change her weight is by monitor in her oral intake. She states that she really only has a very small lunch and really nothing at dinner time period we have discussed doing small frequent meals spread evenly throughout the day. Encouraging more protein intake and fats or carbohydrates. She is set to see the dietitian today. A food journal would also be a good tool for her so that she could really see how much she is truly getting in. We have also discussed not eating late at night after dinner time but she states that she does not do this. We will see her back in 1 month to re-evaluate Assessment & Plan (11/28/2020 9:13 AM CDT): Given her comorbidities the patient would be a good candidate for weight loss surgery. We have discussed risks and benefits of the sleeve gastrectomy versus gastric bypass. We discussed the risks of nutritional deficiencies, anastomotic leak, marginal ulcerations, blood clots as well as new onset or worsening reflux. The patient has done a little research on her own and has been leaning towards the sleeve gastrectomy. We did discuss the risk with her having some occasional reflux symptoms and could worsen after surgery. She is going to think a little bit more about this decision and will discuss it next visit. In the meantime will send a referral to the dietitian as well as psych. We have discussed spreading her meals out to 4 to 5 times a day and not eating late at night. We have discussed a goal intake of around 1600 calories a day. She does have issues with foot pain but we have discussed trying a an exercise regimen as much as possible especially as the temperature improved. Greater than 15 minutes was spent in counseling the patient on diet and exercise for her morbid obesity. We will see her back in 4 weeks. Encounters Date Type Department Care Team Description 10/01/2024 Results Follow-Up [facility] [address] [place] [address] Medical Office Building [address] [place] [id number] Rogelio Shah NP 09/30/2024 10:55 AM CDT Lab [address] Bariatric surgery status; Other specified intestinal malabsorption; Morbid obesity (HCC) 09/23/2024 Results Follow-Up [facility] [place] [address] [facility] [address] [place] [address] Faye Paul MD 09/20/2024 8:27 AM METAL FRAMER - 09/20/2024 11:59 PM METAL FRAMER Hospital Encounter [address] [address] Lung nodule Discharge Disposition: Discharge to home or self care 09/17/[address] [address] Vincent Lujan 09/08/2024 11:00 AM METAL FRAMER Telemedicine [facility] Minimally Invasive Surgery [address] [place] [address] Medical Office Building [address] [place] [phone] Donna Garay NP Weight loss counseling, encounter for (Primary Dx); Schizoaffective disorder, unspecified type (HCC); Binge eating; BMI 45.0-49.9, adult (HCC) 09/07/2024 Telephone [facility] ([facility]) - [facility] Minimally Invasive Surgery [address], [place] [address] Donna Garay NP Scheduling Appointments from Last 3 Months Immunizations Immunization Administration Dates Next Due Influenza, Quadrivalent, Spl it, Preservative Free, Intramuscular 06/04/2019,05/14/2018 Influenza, Trivalent, IM (MDV) 05/14/2013 Influenza, Trivalent, Preser vative Free, Intramuscular 06/03/2024,08/06/2016,03/29/2014 Influenza, Unspecified 11/25/2023(Deferr ed: Patient Refused),08/14/2023(Deferred: Patient Refused),11/05/2022(Deferred: Patient Refused),09/04/2022(Deferred: Patient Refused),05/13/2022(Deferred: Patient Refused),03/07/2022(Deferred: Patient Refused),02/18/2022(Deferred: Patient Refused),02/18/2022(Deferred: Patient Refused),02/18/2022(Deferred: Patient Refused),03/21/2021 Pneumococcal Polysaccharide PPV23 05/07/2014 Surgical History Surgery Date Site/Laterality Comments KNEE SURGERY Bilateral 6 surgeries INCISION AND DRAINAGE ABSCESS / HEMATOMA OF BURSA / KNEE / THIGH FOOT SURGERY Bilateral plantar fasciitis KNEE ARTHROSCOPY COLONOSCOPY TENDON REPAIR 07/21/2021 - 07/20/2022 peroneal brevis FOOT SURGERY Right Liagment repair GASTRIC BYPASS 11/17/2023 Medical History Medical History Date Comments Migraine Anemia Fatty liver Bipolar 1 disorder (HCC) Hypertension Depression Morbid obesity with BMI of 50.0-59.9, adult (HCC ) Anxiety 2019 Arthritis 2009 Borderline personality disorder (HCC) 2002 Joint pain 2002 Low back pain 2020 Sleep apnea 2019 Schizo affective schizophrenia (HCC) Nausea and vomiting 01/06/2024 Family History Medical History Relation Name Comments Cirrhosis Brother 1 Norm jr Diabetes Brother 1 Norm lema Depression Brother 2 Norm Kidney disease Brother 2 Norm Mental illness Brother 2 Norm Obesity Brother 2 Norm Hypertension Brother 3 Pipe Cancer Father Norm sr Depression Father Norm sr Diabetes Father Norm sr Heart attack Father Norm sr Hypertension Father Norm sr Mental illness Father Norm sr Cancer Father's Sister 1 Mabeline Cancer Father's Sister 2 Serena Kidney disease Father's Sister 2 Serena Cancer Maternal Grandfather Tello Heart attack Maternal Grandmother Jennifer Anemia Mother Norma Cirrhosis Mother Norma Diabetes Mother Norma Hypertension Mother Norma Liver disease Mother Norma cirrhosis Obesity Mother Norma Skin cancer Mother Norma Cancer Mother's Brother Tello lema Arthritis Other Cancer Other Diabetes Other Gout Other Heart disease Other Hypertension Other Kidney disease Other Mental illness Other Seizures Other Anesthesia problems Neg Hx Relation Name Status Comments Brother 1 Norm jr Alive Brother 2 Norm Brother 3 Pipe Father Norm sr Alive Father's Sister 1 Mabeline Father's Sister 2 Serena Maternal Grandfather Tello Maternal Grandmother Jennifer Mother Norma Alive Mother's Brother Tello lema Other Social History Tobacco Use Types Packs/Day Years Used Date Smoking Tobacco: Never Passive Smoke Exposure: Past Smokeless Tobacco: Never Alcohol Use Standard Drinks/Week Comments Yes 0 (1 standard drink = 0.6 oz pur e alcohol) AUDIT-C Answer Date Recorded Q1: How often do you have a drink containing alcohol? Never 06/03/2024 Q2: How many drinks containi ng alcohol do you have on a typical day when you are drinking? Patient does not drink Q3: How often do you have si x or more drinks on one occasion? Never 06/03/2024 PHQ-2 Answer Date Recorded PHQ-2 Total Score (If total score is 3 or more points, staff should administer the PHQ-9) 0 06/03/2024 Personal Safety Answer Date Recorded Have you ever been in or are you currently in a harmful physical or emotional relationship or is someone making you feel afraid or unsafe? Denies 01/14/2024 Comments No Sex and Gender Information Value Date Recorded Sex Assigned at Not on file Legal Sex Female 9:35 AM METAL FRAMER Gender Identity Female 02/16/2020 8:04 AM CDT Sexual Orientation Lesbian 02/16/2020 8: 04 AM CDT Obstetrics History Last Filed Vital Signs Vital Sign Reading Time Taken Comments Blood Pressure 136/82 06/03/2024 12:08 PM METAL FRAMER Pulse 74 06/03/2024 11:42 AM METAL FRAMER Temperature 36.7 C (98.1 F) 06/03/2024 11:42 AM METAL FRAMER Respiratory Rate 18 06/03/2024 11:4 2 AM METAL FRAMER Oxygen Saturation 98% 06/03/2024 11: 42 AM METAL FRAMER Inhaled Oxygen Concentration - - Weight 117.2 kg (258 lb 6.4 oz) 06/11/2024 9:13 AM METAL FRAMER standing wt in office Height 154.9 cm (5' 1 ) 06/11/2024 9:13 AM METAL FRAMER Body Mass Index 48.82 06/11/2024 9:13 AM METAL FRAMER Plan of Treatment Health Maintenance Due Date Last Done Comments Hepatitis C Screening 1985 DTaP/Tdap/Td Vaccine (1 - Tdap) 1997 Varicella Vaccines (1 of 2 - 13+ 2-dose series) 10/30/1999 Hepatitis B Screening 2004 Cervical Cancer Screening 11/27/2022 11/27/2021 Covid-19 Vaccine ( season) 2024 11/27/2020, 10/30/2020 Regular Well Visit/Exam 18-64 11/24/2024 11/25/2023, 11/05/2022, 11/13/2021 Depression Screening 06/03/2025 06/03/2024, 11/25/2023, 10/21/2023, Additional history exists Pneumococcal vaccine <65 Aged Out 05/07/2014 No longer eligible based on patient's age to complete this topic Influenza Vaccine Completed 06/03/2024, , 06/04/2019, Additional history exists HPV Vaccines Aged Out No longer eligi ble based on patient's age to complete this topic Goals Goal Patient Goal Type Associated Problems Recent Progress Patient-Stated? Author CCM Chronic Pain Care Plan Chronic Care Management No change(05/12 2:20 PM CDT) No Yvonne Muñoz, RN Note: Problem: Chronic Pain Goals: 1. Minimize further functional decline 2. Maximize quality of life 3. Control pain Strategies: - Activity/exercise program recommendation - Conservative stepwise pain medicine strategy with multi-disciplinary approach - Recommend healthy lifestyle strategies and compensatory methods as needed Medical Devices Implanted Type Area Residential Sales Device Identifier Shelf Expiration Date Model / Serial / Lot [employer] Biological Bariatric Peristrip Non Crosslinked Bovine Pericardium For Endo Lorena Thin [id number] - [id number] Implanted:Qty: 1 on 11/17/2023 by Tello Pacheco MD at [facility] N/A: Stomach [employer] 07/09/2025 [id number] / / [id number] [employer] Biological Bariatric Peristrip Non Crosslinked Bovine Pericardium For Endo Lorena Thin [id number] - [id number] Implanted:Qty: 1 on 11/17/2023 by Tello Pacheco MD at [facility] N/A: Stomach [employer] 07/09/2025 [id number] / / [id number] Procedures Procedure Name Priority Date/Time Associated Diagnosis Comments DIFFERENTIAL AUTO Routine 09/30/2024 11: 10 AM CDT Bariatric surgery status Other specified intestinal malabsorption Morbid obesity (HCC) CBC WITH AUTO DIFFERENTIAL Routine 09/30/2024 11:10 AM CDT Bariatric surgery status Other specified intestinal malabsorption Morbid obesity (HCC) CT CHEST W CONTRAST Schedule Routine, Read Routine (OP Routine) 09/20/2024 8:58 AM METAL FRAMER Lung nodule PAP AND HIGH RISK HPV, REFLEX TO GENOTYPING Routine 11/27/2021 11:20 AM CDT Cervical cancer screening from Last 3 Months or Most Recently Relevant to Health Maintenance Results * Differential, auto (09/30/2024 11:10 AM CDT) Neutrophil abs 3.0 1.5 - 6.5 K/cumm Imm gran abs 0.0 0.0 - 0.1 K/cumm [facility] ([place]) Lymphocyte abs 2.6 0.8 - 3.3 K/cumm [facility] ([place]) Monocyte abs 0.4 0.2 - 0.8 K/cumm [facility] ([place]) Eosinophil abs 0.1 0.0 - 0.5 K/cumm [facility] ([place]) Basophil abs 0.0 0.0 - 0.1 K/cumm [facility] ([place]) Neutrophil pct 49.1 % [facility] ([place]) Comment: Interpretive Data Percent cell count reference ranges are not reported, since discordance with absolute values may lead to misinterpretation of CBC data. Current Interpretive Data was last revised on 2017. Imm gran pct 0.2 % [facility] ([place]) Comment: Interpretive Data Percent cell count reference ranges are not reported, since discordance with absolute values may lead to misinterpretation of CBC data. Current Interpretive Data was last revised on 2017. Lymphocyte pct 43.0 % [facility] ([place]) Comment: Interpretive Data Percent cell count reference ranges are not reported, since discordance with absolute values may lead to misinterpretation of CBC data. Current Interpretive Data was last revised on 2017. Monocyte pct 5.7 % [facility] ([place]) Comment: Interpretive Data Percent cell count reference ranges are not reported, since discordance with absolute values may lead to misinterpretation of CBC data. Current Interpretive Data was last revised on 2017. Eosinophil pct 1.3 % [facility] ([place]) Comment: Interpretive Data Percent cell count reference ranges are not reported, since discordance with absolute values may lead to misinterpretation of CBC data. Current Interpretive Data was last revised on 2017. Basophil pct 0.7 % [facility] ([place]) Comment: Interpretive Data Percent cell count reference ranges are not reported, since discordance with absolute values may lead to misinterpretation of CBC data. Current Interpretive Data was last revised on 2017. Blood 09/30/2024 11:1 0 AM CDT 09/30/2024 1:25 PM CDT us Rogelio Shah PLASMA CENTER TECHNICIAN LAB BLOOD ORDERABLES Final Result [facility] ([place]) [facility] Department [place] [address] * (ABNORMAL) CBC with auto differential (09/30/2024 11:10 AM CDT) WBC 6.1 3.8 - 9.9 K/cumm Hgb 12.3 11.9 - 15.5 g/dL [facility] ([place]) Hct 39.2 35.6 - 45.5 % [facility] ([place]) Plt 302 150 - 400 K/cumm [facility] ([place]) MPV 11.5 9.1 - 12.3 fL [facility] ([place]) RBC 4.59 3.90 - 5.20 M/cumm [facility] ([place]) MCV 85.4 81.3 - 96.4 fL [facility] ([place]) MCH 26.8(L) 27.1 - 33.3 pg [facility] ([place]) MCHC 31.4(L) 32.3 - 35.7 g/dL [facility] ([place]) RDW CV 13.8 11.1 - 14.9 % [facility] ([place]) RDW SD 43.0 35.7 - 48.1 fL [facility] ([place]) NRBC abs 0.00 0.00 - 0.01 K/cumm [facility] ([place]) Blood 09/30/2024 11:1 0 AM CDT 09/30/2024 1:25 PM CDT us Rogelio Shah PLASMA CENTER TECHNICIAN LAB BLOOD ORDERABLES Final Result [facility] ([place]) [facility] [place] [address] * CT Chest W Contrast (09/20/2024 8:58 AM METAL FRAMER) Anatomical Region Laterality Modality Body N/A Computed Tomogra phy 09/23/2024 1:49 PM METAL FRAMER Narrative 09/23/2024 2:13 PM METAL FRAMER EXAM DESCRIPTION: CT CHEST W CONTRAST REASON FOR STUDY: Lung nodule, > 8mm Lung nodule follow up, last scan done 08/09/22, former smoker TECHNIQUE: CT scan of the chest performed with intravenous contrast using helical scanning technique with dynamic intravenous contrast injection. Reconstructed coronal and sagittal MPR images reviewed. All images stored on PACS. Automated exposure control was used as a dose optimization technique for this examination. CONTRAST TYPE/DOSE: 100 mL IOVERSOL 350 injected via intravenous COMPARISON: PA and lateral chest radiographs from July 04, 2023 FINDINGS: LUNGS: 1.4 cm calcified granuloma anterolateral right lower lobe. A few tiny bilateral noncalcified pulmonary nodules measure in the 3 mm range. No focal infiltrates. PLEURA: No effusion. No pneumothorax. MEDIASTINUM/CARLEEN: Calcified mediastinal and hilar lymph nodes in keeping with old granulomatous disease. Otherwise, no identified masses or abnormal nodes. HEART: Heart size is normal with no pericardial effusion. VASCULATURE: No thoracic aortic aneurysm. Retroesophageal right subclavian artery arises as the last of the great vessels from the aortic arch. AXILLA: No adenopathy. CHEST WALL: No masses. No subcutaneous air. HARDWARE/LINES/TUBES: None. UPPER ABDOMEN: Postoperative changes of gastric bypass otherwise, no significant abnormality. MUSCULOSKELETAL: Mild multilevel thoracic spondylosis. No acute bony abnormality. OTHER: No other significant abnormality. IMPRESSION: 1.4 cm calcified granuloma anterolateral right lower lobe. A few tiny bilateral noncalcified pulmonary nodules measure in the 3 mm range. Per Fleischner Society Guidelines, no follow-up needed if patient is low-risk (and has no known or suspected primary neoplasm). Non-contrast chest CT can be considered in 12 months if patient is high-risk. No focal infiltrates or effusions. No adenopathy. Retroesophageal right subclavian artery arises as the last of the great vessels from the aortic arch. THIS IS AN ELECTRONICALLY VERIFIED FINAL REPORT 09/23/2024 2:13 PM - Electronically signed by Kirk Ramirez M.D. RB: LINNEA Report ID: [id number] Reading Location: [id number] Procedure Note Kirk Ramirez MD - 09/23/2024 EXAM DESCRIPTION: CT CHEST W CONTRAST REASON FOR STUDY: Lung nodule, > 8mm Lung nodule follow up, last scan done 08/09/22, former smoker TECHNIQUE: CT scan of the chest performed with intravenous contrast using helical scanning technique with dynamic intravenous contrast injection. Reconstructed coronal and sagittal MPR images reviewed. All images storedon PACS. Automated exposure control was used as a dose optimizationtechnique for this examination. CONTRAST TYPE/DOSE: 100 mL IOVERSOL 350 injected via intravenous COMPARISON: PA and lateral chest radiographs from July 04, 2023 FINDINGS: LUNGS: 1.4 cm calcified granuloma anterolateral right lower lobe. A fewtiny bilateral noncalcified pulmonary nodules measure in the 3 mm range. Nofocal infiltrates. PLEURA: No effusion. No pneumothorax. MEDIASTINUM/CARLEEN: Calcified mediastinal and hilar lymph nodes in keeping with old granulomatous disease. Otherwise, no identified masses orabnormal nodes. HEART: Heart size is normal with no pericardial effusion. VASCULATURE: No thoracic aortic aneurysm. Retroesophageal rightsubclavian artery arises as the last of the great vessels from the aortic arch. AXILLA: No adenopathy. CHEST WALL: No masses. No subcutaneous air. HARDWARE/LINES/TUBES: None. UPPER ABDOMEN: Postoperative changes of gastric bypass otherwise, no significant abnormality. MUSCULOSKELETAL: Mild multilevel thoracic spondylosis. No acute bony abnormality. OTHER: No other significant abnormality. IMPRESSION: 1.4 cm calcified granuloma anterolateral right lower lobe. A few tiny bilateral noncalcified pulmonary nodules measure in the 3 mm range. Per Fleischner Society Guidelines, no follow-up needed if patientis low-risk (and has no known or suspected primary neoplasm). Non-contrastchest CT can be considered in 12 months if patient is high-risk. No focal infiltrates or effusions. No adenopathy. Retroesophageal right subclavian artery arises as the last of the great vessels from the aortic arch. THIS IS AN ELECTRONICALLY VERIFIED FINAL REPORT 09/23/2024 2:13 PM - Electronically signed by Kirk Ramirez M.D. RB: LINNEA Report ID: [id number] Reading Location: [id number] Faye Paul MD IMG CT PROCEDURES Fin al Result * Pap and High Risk HPV, reflex to Genotyping (11/27/2021 11:20 AM CDT) Thin prep (Pap test) 11/27/2021 11:20 AM CDT 11/27/2021 11:20 AM CDT Narrative PATHOLOGY - 11/29/2021 1:40 PM CDT [facility]ology [address] [place] [id number] Final Report with Addendum Note to Patients: This report may contain a detailed description of human tissue sent by a health care provider to the laboratory for pathologic evaluation. The content of this report is essential for diagnosis and may provide important critical findings. This information may be unfamiliar to patients to review without a medical professional present. It is advised that the patient review this report in the presence of a health care provider who can answer questions and explain the details. Patient Name: MIRA CURRY Address: [facility] [place] [address] Gender: F : 1985 (Age: 36) Service: Laboratory Location: Lab Hospital #: [id number] Patient [facility]: [facility] Lab Taken: 11/27/2021 Received: 11/27/2021 Accessioned:: 11/28/2021 Reported: 11/29/2021 Physician(s): Rudy Ramires M.D. Diagnosis: Source of Specimen: SCREENING THIN PREP IMAGED PAP w/ HPV Specimen Adequacy: - Specimen satisfactory for interpretation; endocervical/transformation zone component absent or insufficient General Category: - Negative for intraepithelial lesion or malignancy CB Faulkner(ASCP) Report Electronically Reviewed and Signed Out By RAVINDER FaulknerASC) 11/29/2021 13:40:06 Addenda: HPV Test Interpretation NEGATIVE for types 16, 18, 31, 33, 35, 39, 45, 51, 52, 56, 58, 59, 66 and 68. Test performed utilizing Gen-Probe Aptima assay. CB Pena(ASCP) Report Electronically Reviewed and Signed Out By CB Pena(ASCP) 11/29/2021 13:41:22 Specimen(s) Received: A: SCREENING THIN PREP IMAGED PAP w/ HPV Clinical History: Last Menstrual Period: 11/10/21 The Pap test is a screening test used to aid in the detection of cervical cancer and its precursors. It should not be the sole means by which malignant and premalignant lesions are diagnosed. Both false negative and false positive results may occur. It also has poor sensitivity for the detection of endometrial lesions and should not be used to evaluate suspected endometrial abnormalities. For these reasons it is most important to obtain Pap tests at regular intervals. The performance characteristics of some immunohistochemical stains, fluorescence in-situ hybridization tests and immunophenotyping by flow cytometry cited in this report (if any) were determined by the Surgical Pathology Department at [facility] as part of an ongoing coding quality analyst program and in compliance with federally mandated regulations drawn from the Clinical Laboratory Improvement Act of 1988 (CLIA '88). Some of these tests rely on the use of analyte specific reagents and are subject to specific labeling requirements by the US Food and Drug Administration. Such diagnostic tests may only be performed in a facility that is certified by the Department of Health and Human Services as a high complexity laboratory under CLIA '88. The FDA has determined that such clearance or approval is not necessary. This test is used for clinical purposes. It should not be regarded as investigational or for research. Nevertheless, federal rules concerning the medical use of analyte specific reagents require that the following disclaimer be attached to the report: This test was developed and its performance characteristics determined by the Surgical Pathology Department [facility]. It has not been cleared or approved by the U. S. Food and Drug Administration. Faye Paul MD LAB CYTOLOGY ORDERABL ES Final Result PATHOLOGY [id number] [place] [address] from Last 3 Months or Most Recently Relevant to Health Maintenance Insurance [facility] IDPA [facility] Advance Directives For more information, please contact: [phone] * Full Code (Latest Code Status on File) Date Activated Date Inactivated Comments 01/14/2024 9:32 AM 01/14/2024 3:35 PM * Full Code Date Activated Date Inactivated Comments 11/17/2023 11:23 AM 11/18/2023 8:17 PM * Full Code Date Activated Date Inactivated Comments 07/31/2023 9:25 AM 07/31/2023 3:35 PM * Full Code Date Activated Date Inactivated Comments 07/31/2023 9:25 AM 07/31/2023 9:25 AM * Full Code Date Activated Date Inactivated Comments 04/24/2021 11:59 AM 04/24/2021 6:48 PM Care Teams Overhauler Bus Truck Relationship Specialty Start Date End Date Faye Paul MD [address] [place] [id number] PCP - General Family Medicine 08/30/24 Sabrina Ferreira, DPM Consulting Physician Foot and Ankle Surg 08/09/22 Laina Terrell, CHAS Physical Therapist Physical Therapy 11/27/22 Kenia Villagomez MD PhD [id number] [address] Dermatology 11/21/23 Tello Pacheco MD [facility] [address] [phone] [place] [address] Referring Physician General Surgery 11/21/23
--- OUTSIDE RECORDS SUMMARY | 2024-10-09 08:23 | XMS_ITS | Encounter Summary ---
Author Organization [facility] Address [address] [facility] [address] [place] [address] Phone Care Team Providers Care Finish Grinder Name Role Phone aSbrina Ferreira DPM Unavailable [phone] Laina Terrell PT Unavailable Unavailable Kenia Villagomez MD PhD Unavailable Tello Pacheco MD Unavailable [phone] Faye Paul MD Primary Care Provide r Encounter Details Date Type Department Care Team (Late st Contact Info) Description 10/01/2024 Results Follow-Up [facility] Minimally Invasive Surgery [address] [place] [address] Medical Office Building [address] [place] [address] Rogelio Shah, LISS [address] [facility] [phone] [place] [address] Social History Tobacco Use Types Packs/Day Years [...] on file 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 Author CCM Chronic Pain Care Plan Chronic Care Management No change(05/12 2:20 PM CDT) No Yvonne Muñoz RN Note: Problem: Chronic Pain Goals: 1. Minimize further functional decline 2. Maximize quality of life 3. Control pain Strategies: - Activity/exercise program recommendation - Conservative stepwise pain medicine strategy with multi-disciplinary approach - Recommend healthy lifestyle strategies and compensatory methods as needed documented as of this encounter Visit Diagnoses Not on filedocumented in this encounter Care Teams Finish Grinder Relationship Specialty Start Date End Date Faye Paul MD [address] [place] [id number] PCP - General Family Medicine 08/30/24 Sabrina Ferreira, JERE Consulting Physician Foot and Ankle Surg 08/09/22 Laina Terrell, CHAS Physical Therapist Physical Therapy 11/27/22 Kenia Villagomez MD PhD [address] [address] Dermatology 11/21/23 Tello Pacheco MD [facility] [address] [phone] [place] [address] Referring Physician General Surgery 11/21/23 documented as of this encounter
--- OUTSIDE RECORDS SUMMARY | 2024-10-09 08:23 | XMS_ITS | Encounter Summary ---
Author Organization [facility] Healthcare Address [address] [place] [address] Care Team Providers Care Analytical Manager Name Role Phone Faye Paul MD Primary Care Provide r Sabrina Ferreira DPM Unavailable [phone] Laina Terrell PT Unavailable Unavailable Kenia Villagomez MD PhD Unavailable Tello Pacheco MD Unavailable [phone] Shivani Tatum MD Primary Care Provider [phone] Faye Paul MD Primary Care Provide r Encounter Details Date Type Department Care Team (Late st Contact Info) Description 10/14/2023 Orders Only [facility] Health Information Management [address] [place] [address] Scanning, Provider Social History Tobacco Use Types Packs/Day Years Used Date Smoking Tobacco: Never Smokeless Tobacco: Never Alcohol Use Standard Drinks/Week Comments Yes 0 (1 standard drink = 0.6 oz pur e alcohol) AUDIT-C Answer Date Recorded Q1: How often do you have a drink containing alcohol? Never 08/15/2023 Q2: How many drinks containi ng alcohol do you have on a typical day when you are drinking? Patient does not drink Q3: How often do you have si x or more drinks on one occasion? Never 08/15/2023 PHQ-2 Answer Date Recorded PHQ-2 Total Score (If total score is 3 or more points, staff should administer the PHQ-9) 0 08/14/2023 Personal Safety Answer Date Recorded Have you ever been in or are you currently in a harmful physical or emotional relationship or is someone making you feel afraid or unsafe? Denies 07/31/2023 Comments No Sex and Gender Information Value Date Recorded Sex Assigned at Not on file Legal Sex Female 9:35 AM TERMITE TREATER Gender Identity Female 02/16/2020 8:04 AM CDT [...] as needed documented as of this encounter Procedures Procedure Name Priority Date/Time Associated Diagnosis Comments SCAN - RADIOLOGY/IMAGING 10/14/2023 documented in this encounter Results * SCAN - RADIOLOGY/IMAGING (10/14/2023) Anatomical Region Laterality Modality Other us Provider Scanning Final Result documented in this encounter Visit Diagnoses Not on filedocumented in this encounter Care Teams Analytical Manager Relationship Specialty Start Date End Date Faye Paul MD [address] [place] [address] [address] [place] [address] PCP - General Family Medicine 11/13/21 07/12/24 Shivani Tatum MD [address] [facility] [id number] [place] [address] PCP - General Family Medicine 07/13/24 08/29/24 Faye Paul MD [address] [place] [address] [place] [address] PCP - General Family Medicine 08/30/24 Sabrina Ferreira DPM [address] [facility] [address] [place] [address] Consulting Physician Foot and Ankle Surg 08/09/22 Laina Terrell, PT Physical Therapist Physical Therapy 11/27/22 Kenia Villagomez MD PhD [address] [address] Dermatology 11/21/23 Tello Pacheco MD [address] [facility] [phone] [place] [address] Referring Physician General Surgery 11/21/23 documented as of this encounter
--- OUTSIDE RECORDS SUMMARY | 2024-10-09 08:23 | XMS_ITS | Referral Summary ---
Author Organization [facility] Address [address] [place] [address] Care Team Providers Care Supervisor Safety Deposit Name Role Phone Sabrina Ferreira DPM Unavailable [phone] Laina Terrell PT Unavailable Unavailable Kenia Villagomez MD PhD Unavailable Tello Pacheco MD Unavailable [phone] Faye Paul MD Primary Care Provide r Encounters Date Type Department Care Team Description 10/01/2024 Results Follow-Up [facility] Minimally Invasive Surgery [facility] Medical Office Building [address] [place] [address] Rogelio Shah NP 09/30/2024 10:55 AM CDT Lab [facility] [address] [place], [place] Bariatric surgery status; Other specified intestinal malabsorption; Morbid obesity (HCC) 09/23/2024 Results Follow-Up [facility] at [place] [address] [facility] [address] [place] [address] Faye Paul MD 09/20/2024 8:27 AM ONCOLOGY REP SPECIALIST - 09/20/2024 11:59 PM ONCOLOGY REP SPECIALIST Hospital Encounter [facility] [address] [place] [address] Lung nodule Discharge Disposition: Discharge to home or self care 09/17/2024 Telephone [facility] [address] [place] [address] Vincent Lujan 09/08/2024 11:00 AM ONCOLOGY REP SPECIALIST Telemedicine [facility] Minimally Invasive Surgery [address] [facility] [address] [place] [address] Donna Garay NP Weight loss counseling, encounter for (Primary Dx); Schizoaffective disorder, unspecified type (HCC); Binge eating; BMI 45.0-49.9, adult (HCC) 09/07/2024 [facility] Minimally Invasive Surgery [address] [place] [address] 12th Floor, [place] [address] Donna Garay NP Scheduling Appointments from Last 3 Months Allergies Active Allergy Reactions Criticality Noted Date [...] (80 mg total) by mouth nightly 06/29/20 23 Active ergocalciferol (VITAMIN D) 50,000 unit capsule [...] post Surgery 90 tablet 3 11/05/19 24 025 Active ferrous sulfate 325 mg (65 mg [...] 08/14/2023 Assessment & Plan (08/14/2023 12:05 PM ONCOLOGY REP SPECIALIST): Lab Results Component Value Date HGBA1C 6.2 [...] surgery Assessment & Plan (07/04/2023 8:13 AM ONCOLOGY REP SPECIALIST): Pt comes in at behest of Dr. [...] Plan (12/27/2022 2:52 PM CDT): Follows with plate glass grinder for the dilation exam CT of the [...] february Assessment & Plan (09/04/2022 1:46 PM ONCOLOGY REP SPECIALIST): Provoked dvt 2/2 foot surgery Continue xarelto [...] wnl Will continue to closely monitor Mother's woodworking craftsman recommended she come and be seen Encounter [...] (12/05/2020): Added automatically from request for surgery [id number] Calcaneal spur of left foot 12/05/2020 Overview (12/05/2020): Added automatically from request for surgery [id number] Pulsatile tinnitus of right ear 10/17/2020 Assessment [...] 08/21/2020 Assessment & Plan (08/21/2020 2:16 PM ONCOLOGY REP SPECIALIST): Hearing test CT Angiogram Head and Neck [...] 10/14/2014 Assessment & Plan (07/28/2020 8:38 AM ONCOLOGY REP SPECIALIST): Due to history of headaches will provide [...] 05/19/2014 Assessment & Plan (08/14/2023 12:08 PM ONCOLOGY REP SPECIALIST): EGD showed some gastritis but no signs [...] hypertension Assessment & Plan (06/03/2024 12:10 PM ONCOLOGY REP SPECIALIST): Bp in the office today BP Readings [...] months Assessment & Plan (08/14/2023 12:05 PM ONCOLOGY REP SPECIALIST): Bp in the office today BP Readings [...] months Assessment & Plan (09/04/2022 1:54 PM ONCOLOGY REP SPECIALIST): Bp in the office today BP Readings [...] cardiology Assessment & Plan (07/04/2023 8:04 AM ONCOLOGY REP SPECIALIST): Chronic problem-worsening Patient is being scheduled for [...] (04/17/2021): Added automatically from request for surgery [id number] Morbid obesity with BMI of 50.0-59.9, adult [...] happy to make a referral for her [facility] as we are not doing the bypass [...] will see her back in 4 weeks. Immunizations Immunization Administration Dates Next Due Influenza, Quadrivalent, Spl it, Preservative Free, Intramuscular 06/04/2019,05/14/2018 Influenza, Trivalent, IM (MDV) 05/14/2013 Influenza, Trivalent, Preser vative Free, Intramuscular 06/03/2024,08/06/2016,03/29/2014 Influenza, Unspecified 11/25/2023(Deferr ed: Patient Refused),08/14/2023(Deferred: Patient Refused),11/05/2022(Deferred: Patient Refused),09/04/2022(Deferred: Patient Refused),05/13/2022(Deferred: Patient Refused),03/07/2022(Deferred: Patient Refused),02/18/2022(Deferred: Patient Refused),02/18/2022(Deferred: Patient Refused),02/18/2022(Deferred: Patient Refused),03/21/2021 Pneumococcal Polysaccharide PPV23 05/07/2014 Social History Tobacco Use Types Packs/Day Years [...] on file Legal Sex Female 9:35 AM ONCOLOGY REP SPECIALIST Gender Identity Female 02/16/2020 8:04 AM CDT Sexual Orientation Lesbian 02/16/2020 8: 04 AM CDT Last Filed Vital Signs Vital Sign Reading Time Taken Comments Blood Pressure 136/82 06/03/2024 12:08 PM ONCOLOGY REP SPECIALIST Pulse 74 06/03/2024 11:42 AM ONCOLOGY REP SPECIALIST Temperature 36.7 C (98.1 F) 06/03/2024 11:42 AM ONCOLOGY REP SPECIALIST Respiratory Rate 18 06/03/2024 11:4 2 AM ONCOLOGY REP SPECIALIST Oxygen Saturation 98% 06/03/2024 11: 42 AM ONCOLOGY REP SPECIALIST Inhaled Oxygen Concentration - - Weight 117.2 kg (258 lb 6.4 oz) 06/11/2024 9:13 AM ONCOLOGY REP SPECIALIST standing wt in office Height 154.9 cm (5' 1 ) 06/11/2024 9:13 AM ONCOLOGY REP SPECIALIST Body Mass Index 48.82 06/11/2024 9:13 AM ONCOLOGY REP SPECIALIST Plan of Treatment Not on file Goals Goal Patient Goal Type Associated Problems [...] as needed Medical Devices Implanted Type Area Supervisor Waterworks Device Identifier Shelf Expiration Date Model / Serial / Lot [employer] Biological Bariatric Peristrip Non Crosslinked Bovine Pericardium For Endo Lorena Thin [id number] - [id number] Implanted:Qty: 1 on 11/17/2023 by Tello Pacheco MD at [facility] N/A: Stomach [employer] 07/09/2025 [id number] / / [id number] Mancera Launchpil[employer] Biological Bariatric Peristrip Non Crosslinked Bovine Pericardium For Endo Lorena Thin [id number] - [id number] Implanted:Qty: 1 on 11/17/2023 by Tello Pacheco MD at [facility] N/A: Stomach [employer] 07/09/2025 [id number] / / [id number] Procedures Procedure Name Priority Date/Time Associated Diagnosis Comments DIFFERENTIAL AUTO Routine 09/30/2024 11: 10 AM CDT Bariatric surgery status Other specified intestinal malabsorption Morbid obesity (HCC) CBC WITH AUTO DIFFERENTIAL Routine 09/30/2024 11:10 AM CDT Bariatric surgery status Other specified intestinal malabsorption Morbid obesity (HCC) CT CHEST W CONTRAST Schedule Routine, Read Routine (OP Routine) 09/20/2024 8:58 AM ONCOLOGY REP SPECIALIST Lung nodule PAP AND HIGH RISK HPV, [...] 2017. Monocyte pct 5.7 % [facility] ([place]) Comment: Interpretive Data [...] 09/30/2024 1:25 PM CDT us Rogelio Shah SLAB MILLER OPERATOR LAB BLOOD ORDERABLES Final Result [facility] ([place]) [address] [facility] [place] [address] * (ABNORMAL) CBC with auto differential (09/30/2024 11:10 AM CDT) WBC 6.1 3.8 - 9.9 K/cumm Hgb 12.3 11.9 - 15.5 g/dL [facility] ([place]) Hct 39.2 35.6 - 45.5 % [facility] ([place]) Plt 302 150 - 400 K/cumm [facility] ([place]) MPV 11.5 9.1 - 12.3 fL [facility] ([place]) RBC 4.59 3.90 - 5.20 M/cumm [facility] ([place]) MCV 85.4 81.3 - 96.4 fL [facility] ([place]) MCH 26.8(L) 27.1 - 33.3 pg [facility] ([place]) MCHC 31.4(L) 32.3 - 35.7 g/dL [facility] ([place]) RDW CV 13.8 11.1 - 14.9 % [facility] ([place]) RDW SD 43.0 35.7 - 48.1 fL [facility] ([place]) NRBC abs 0.00 0.00 - 0.01 K/cumm [facility] ([place]) Blood 09/30/2024 11:1 0 AM CDT 09/30/2024 1:25 PM CDT us Rogelio Shah SLAB MILLER OPERATOR LAB BLOOD ORDERABLES Final Result [facility] ([place]) [address] [facility] [place] [address] * CT Chest W Contrast (09/20/2024 8:58 AM ONCOLOGY REP SPECIALIST) Anatomical Region Laterality Modality Body N/A Computed Tomogra phy 09/23/2024 1:49 PM ONCOLOGY REP SPECIALIST Narrative 09/23/2024 2:13 PM ONCOLOGY REP SPECIALIST EXAM DESCRIPTION: CT CHEST W CONTRAST REASON [...] Kirk Ramirez M.D. RB: LINNEA Report ID: [id number] Reading Location: [place] [address] Procedure Note Kirk Ramirez MD - 09/23/2024 [...] Kirk Ramirez M.D. RB: LINNEA Report ID: [id number] Reading Location: [place] [address] Faye Paul MD IMG CT PROCEDURES Fin al Result * Pap and High Risk HPV, reflex to Genotyping (11/27/2021 11:20 AM CDT) Thin prep (Pap test) 11/27/2021 11:20 AM CDT 11/27/2021 11:20 AM CDT Narrative PATHOLOGY CH - 11/29/2021 1:40 PM CDT [facility] Department of Pathology [address] [place] [address], [place] [address] Final Report with Addendum Note to [...] the details. Patient Name: MIRA CURRY [address] [place] [address] Gender: F : 1985 (Age: 36) Service: Laboratory Location: Lab [facility] #: [id number] Patient Type: Ref Lab Taken: 11/27/2021 Received: 11/27/2021 Accessioned:: 11/28/2021 Reported: 11/29/2021 Physician(s): Rudy Ramires M.D. Diagnosis: Source of Specimen: SCREENING THIN PREP IMAGED PAP w/ HPV Specimen Adequacy: - Specimen satisfactory for interpretation; endocervical/transformation zone component absent or insufficient General Category: - Negative for intraepithelial lesion or malignancy CB Faulkner(ASCP) Report Electronically Reviewed and Signed Out By RAVINDER FaulknerASCP) 11/29/2021 13:40:06 Addenda: HPV Test Interpretation NEGATIVE [...] determined by the Surgical Pathology Department at [facility] as part of an ongoing quality management nurse program and in compliance with federally mandated [...] characteristics determined by the Surgical Pathology Department [facility]. It has not been cleared or approved by the U. S. Food and Drug Administration. Faye Paul MD LAB CYTOLOGY ORDERABL ES Final Result Performing Organization Address City/State/[facility] Co nd Phone Number PATHOLOGY [address] [place] [address] from Last 3 Months or Most Recently Relevant to Health Maintenance Insurance [facility] Advance Directives For more information, please contact: [phone] * Full Code (Latest Code Status on [...] 11:59 AM 04/24/2021 6:48 PM Care Teams Supervisor Safety Deposit Relationship Specialty Start Date End Date Faye Paul MD [address] [place] [address] PCP - General Family Medicine 08/30/24 Sabrina Ferreira, DPM Consulting Physician Foot and Ankle Surg 08/09/22 Laina Terrell, PT Physical Therapist Physical Therapy 11/27/22 Kenia Villagomez MD PhD [address] [facility] [address] [place] [address] Dermatology 11/21/23 Tello Pacheco MD [address] [facility] [phone] [place] [address] Referring Physician General Surgery 11/21/23
--- OUTSIDE RECORDS SUMMARY | 2024-10-09 08:23 | XMS_ITS | Encounter Summary ---
Author Organization [facility] Address [address] [place] [address] Phone Care Team Providers Care Structures Mechanic Name Role Phone Faye Paul MD Primary Care Provide r Reason for Referral * Radiology Services (STAT with Interpretation) - Closed Specialty Diagnoses / Procedures Referred By Contmariana t Referred To Contact Radiology Diagnoses Pain and swelling of lower extremity, left Deep vein thrombosis (DVT) of left lower extremity, unspecified chronicity, unspecified vein (HCC) Procedures US LEFT DUPLEX LOWER EXTREMITY VEINS Sabrina Ferreira DPM Phone: tel: fax: Referral ID Status Reason Start Date Expiration Date Visits Re quested Visits Authorized [id number] Closed 08/09/2022 1 1 R SCHOOL PROGRAM ASSISTANT Encounter Details Date Type Department Care Team (Latest Contact Info) Description 08/09/2022 Transcribe Orders [facility] Ultrasound [address] [place] [id number] Sabrina Ferreira DPM [address] [place] [address] Deep vein thrombosis (DVT) of left lower extremity, unspecified chronicity, unspecified vein (HCC) (Primary Dx); Pain and swelling of lower extremity, left Social History Tobacco Use Types Packs/Day Years Used Date Smoking Tobacco: Former Smokeless Tobacco: Never Comments:EXPERIMENTAL ROJAS NAGER ONLY Alcohol Use Standard Drinks/Week Comments Not Currently 0 (1 standard drink = 0.6 oz pur e alcohol) Sexually Active Control Partners Comments Yes Female Comments No Sex and Gender Information Value Date Recorded Sex Assigned at Not on file Legal Sex Female 12:22 PM CDT Gender Identity Not on file Sexual Orientation Not on file COVID-19 Exposure Response Date Recorded In the last 10 days, have yo u been in contact with someone who was confirmed or suspected to have Coronavirus/COVID-19? No / Unsure 08/09/2022 10:27 AM AFTER SCHOOL PROGRAM ASSISTANT documented as of this encounter Plan of Treatment Not on file documented as of this encounter Results * US LEFT DUPLEX LOWER EXTREMITY VEINS (08/09/2022 11:30 AM AFTER SCHOOL PROGRAM ASSISTANT) Anatomical Region Laterality Modality vascular Left Ultrasound 08/09/2022 11:3 5 AM AFTER SCHOOL PROGRAM ASSISTANT Impressions 08/09/2022 11:37 AM AFTER SCHOOL PROGRAM ASSISTANT IMPRESSION: 1. Thrombosis of the left peroneal calf vein. 2. No femoral-popliteal deep venous thrombosis is seen. Results communicated to the ordering clinician by the performing titrator at approximately 11:20 a.m. on 08/09/2022 Narrative 08/09/2022 11:37 AM AFTER SCHOOL PROGRAM ASSISTANT EXAM DESCRIPTION: US LEFT DUPLEX LOWER EXTREMITY VEINS REASON FOR STUDY: Left lower extremity pain and swelling x1 week. Recent left foot tendon repair on 07/18/2023. TECHNIQUE: Duplex scan using the B-mode, spectral Doppler, and color-flow Doppler of the deep venous system of the left lower extremity was performed. Images stored on PACS. COMPARISON: None FINDINGS: The common femoral, common femoral-saphenous vein confluence, visualized profunda femoral, superficial femoral, and popliteal veins are readily compressible with no intraluminal thrombus on kaiser scale images. There is normal color and spectral Doppler signal, including augmentation. Greater saphenous vein appears patent. Thrombosis of the left peroneal calf vein. THIS IS AN ELECTRONICALLY VERIFIED FINAL REPORT 08/09/2022 11:35 AM - Electronically signed by Tyree Clayton M.D. AG: RODDY Report ID: [id number] Reading Location: [id number] Procedure Note Tyree Clayton MD - 08/09/2022 EXAM DESCRIPTION: US LEFT DUPLEX LOWER EXTREMITY VEINS REASON FOR STUDY: Left lower extremity pain and swelling x1 week. Recent left foot tendon repair on 07/18/2023. TECHNIQUE: Duplex scan using the B-mode, spectral Doppler, and color-flow Doppler of the deep venous system of the left lower extremity was performed. Images stored on PACS. COMPARISON: None FINDINGS: The common femoral, common femoral-saphenous vein confluence, visualized profunda femoral, superficial femoral, and popliteal veins are readily compressible with no intraluminal thrombus on kaiser scale images. There is normal color and spectral Doppler signal, including augmentation. Greater saphenous vein appears patent. Thrombosis of the left peroneal calf vein. THIS IS AN ELECTRONICALLY VERIFIED FINAL REPORT 08/09/2022 11:35 AM - Electronically signed by Tyree Clayton M.D. AG: RODDY Report ID: [id number] Reading Location: [id number] IMPRESSION: 1. Thrombosis of the left peroneal calf vein. 2. No femoral-popliteal deep venous thrombosis is seen. Results communicated to the ordering clinician by the performing titrator at approximately 11:20 a.m. on 08/09/2022 Sabrina Ferreira DPM IMMaribell US ORDERABLES Final Resu lt documented in this encounter Visit Diagnoses Diagnosis Deep vein thrombosis (DVT) of left lower extremity, unspecified chronicity, unspecified vein (HCC)- Primary Pain and swelling of lower extremity, left Pain and swelling of lower extremity, left Deep vein thrombosis (DVT) of left lower extremity, unspecified chronicity, unspecified vein (HCC) documented in this encounter Additional Health Concerns Infection Onset Date Last Indicated Resolved Time COVID - 19 11/03/2023 11/03/2023 11/03/2023 9:16 PM CDT COVID - 19 Confirmed 11/03/2023 11/03/2023 024 12:16 AM CDT documented as of this encounter Care Teams Structures Mechanic Relationship Specialty Start Date End Date Faye Paul MD [address] [place] [address] [address] PCP - General Family Medicine 04/17/22 documented as of this encounter
--- OUTSIDE RECORDS SUMMARY | 2024-10-09 08:23 | XMS_ITS | Encounter Summary ---
Author Organization [facility] Address [address] [facility] [address] [place] [address] Phone Care Team Providers Care Analytics Intern Name Role Phone Sabrina Ferreira DPM Unavailable [phone] Laina Terrell PT Unavailable Unavailable Kenia Villagomez MD PhD Unavailable Tello Pacheco MD Unavailable [phone] Faye Paul MD Primary Care Provide r Reason for Visit * Reason Onset Date Comments Scheduling Appointments 09/07/2024 Encounter Details Date Type Department Care Team (Late st Contact Info) Description 09/07/2024 Telephone Advanced Medicine ([facility]) - [facility] Minimally Invasive Surgery [address] [facility] Advanced Medicine 12th Floor, [place] [address] Donna Garay NP [address] [facility] [phone] [place] [address] Scheduling Appointments Social History Tobacco Use Types Packs/Day Years [...] on file Legal Sex Female 9:35 AM SUSPENDER MAKER Gender Identity Female 02/16/2020 8:04 AM CDT Sexual Orientation Lesbian 02/16/2020 8: 04 AM CDT documented as of this encounter Miscellaneous Notes * Telephone Encounter - Julio Horne - 09/07/2024 2:43 PM CST Patient Query: Was an attempt to transfer to the assigned clinical staff or backline? Yes Reason for call?: Patient called in to reschedule appointment they had scheduled for today - 09/07/2024 (was changed to video visit due to weather and pt had trouble joining meeting). Confirmed with Jeff that reschedule was okay. Advised to send TE as video appointment for 09/07/2024 is marked as arrived , but patient states they did not attend appointment. Please reach out to patient if there are any issues. Who is the caller: Mira Curry What is the best number for them to contact for a call back: [phone] ENDER MAKER documented in this encounter Plan of Treatment Not on [...] on filedocumented in this encounter Care Teams Analytics Intern Relationship Specialty Start Date End Date Faye Paul MD [address] [place] [address] PCP - General Family Medicine 08/30/24 Sabrina Ferreira, STEPHANIEM Consulting Physician Foot and Ankle Surg 08/09/22 Laina Terrell, PT Physical Therapist Physical Therapy 11/27/22 Kenia Villagomez MD PhD [address] [facility] [address] [place] [address] Dermatology 11/21/23 Tello Pacheco MD [address] [facility] [phone] [place] [address] Referring Physician General Surgery 11/21/23 documented as of this encounter
--- OUTSIDE RECORDS SUMMARY | 2024-10-09 08:23 | XMS_ITS | Clinical Summary ---
Author Organization [facility] Address [address] [place] [address] Phone Care Team Providers Care Senior Stack Engineer Name Role Phone Faye Paul MD Primary Care Provide r Allergies Active Allergy Reactions Criticality Noted Date Comments Naproxen Rash 11/06/2020 Medications diclofenac (VOLTAREN) 50 MG Tablet Delayed Response Take 1 Tablet by mouth 3 times daily. 90 Tablet 1 Active Additional Information Patient not taking.Reported on 07/10/2022 traMADol (ULTRAM) 50 MG Tablet Take 1 Tablet by mouth every 6 hours as needed for Severe pain. 25 Tablet 1 Active Additional Information Patient not taking.Reported on 07/10/2022 traZODone (DESYREL) 100 MG Tablet Take 100 mg by mouth nightly. Active Cariprazine HCl (Vraylar) 4.5 MG Capsule Take 4.5 mg by mouth daily. Active escitalopram (LEXAPRO) 20 MG Tablet Take 20 mg by mouth nightly. Active Diclofenac Sodium (VOLTAREN) 1 % Gel Apply 4 times daily. Active Lumateperone Tosylate (Caplyta) 42 MG Capsule Take by mouth every morning. Active clonazePAM (KlonoPIN) 0.5 MG Tablet Take 0.5 mg by mouth as needed. Active prazosin (MINIPRESS) 2 MG Capsule Take 2 mg by mouth nightly. Active HYDROcodone-acet aminophen (NORCO) 10-325 MG TabletIndication s:Pain Take 1 Tablet by mouth every 4 hours as needed for Mild or more severe pain or Moderate or more severe pain for up to 40 doses. 40 Tablet 2 Active ondansetron (ZOFRAN-ODT) 4 MG TABLET DISPERSIBLE Take 1 Tablet by mouth every 8 hours as needed for Nausea - 1st line. 20 Tablet 4 Active Active Problems No known active problems Encounters Date Type Department Care Team Description 07/29/2024 9:40 PM STAGE DRIVER - 07/29/2024 10:19 PM STAGE DRIVER Emergency [facility] [address] [place] [id number] Marcelo Miguel, JHONNY Acute cystitis without hematuria Discharge Disposition: Discharged to home or Selfcare 07/29/2024 Travel from Last 3 Months Family History Medical History Relation Name Comments Diabetes Father Hypertension Father Cirrhosis Mother NON ALCOHOL REL ATED Diabetes Mother Hypertension Mother Relation Name Status Comments Father Alive Mother Alive Social History Tobacco Use Types Packs/Day Years Used Date Smoking Tobacco: Former Smokeless Tobacco: Never Tobacco Cessation:Counseling Given: Not Answered Comments:EXPERIMENTAL TEENAGER ONLY Alcohol Use Standard Drinks/Week Comments Not [...] Sign Reading Time Taken Comments Blood Pressure 132/73 07/29/2024 8:30 PM STAGE DRIVER Pulse 71 07/29/2024 8:30 PM STAGE DRIVER Temperature 36.4 C (97.5 F) 07/29/2024 8:30 PM STAGE DRIVER Respiratory Rate 20 07/29/2024 8:30 PM STAGE DRIVER Oxygen Saturation 99% 07/29/2024 8:30 PM STAGE DRIVER Inhaled Oxygen Concentration - - Weight 113.4 kg (250 lb) 07/29/2024 8:30 PM STAGE DRIVER Height 154.9 cm (5' 1 ) 07/29/2024 8:30 PM STAGE DRIVER Body Mass Index 47.24 07/29/2024 8:30 PM STAGE DRIVER Plan of Treatment Health Maintenance Due Date Last Done Comments Hepatitis C Virus (HCV) Screening 1985 TdaP Immunization 1985 Hepatitis B Immunization (1 of 3 - 19+ 3-dose series) 2005 Pap Smear 10/30/2007 Cervical Cancer Screening (CCS) 2016 HPV/Cotest 2016 SARS-COV-2 Immunization ( season) 2024 11/27/2020, 10/30/2020 Respiratory Syncytial Virus (RSV) Immunization (Adult) (1 - 1-dose 75+ series) 2061 Pneumococcal Immunization Combined Aged Out 05/07/2014 No longer eligible based on patient's age to complete this topic Influenza Immunization Completed , 03/21/2021, 06/04/2019, Additional history exists Meningococcal Immunization (ACWY) Aged Out No longer eligible based on patient's age to complete this topic Rotavirus Immunization Aged Out No lo nger eligible based on patient's age to complete this topic Medical Devices Implanted Type Area Moss Gatherer Device Identifier Shelf Expiration Date Model / Serial / Lot Suture Ayr Implanted:Qty: 1 on 07/18/2022 by Sabrina Ferreira DPM at [facility] Left: Ankle [employer] 07/20/2025 [id number] / [id number] / [id number] Graft Jacket Implanted:Qty: 1 on 07/18/2022 by Sabrina Ferreira DPM at [facility] Left: Ankle [employer] 03/09/2023 [id number] / [id number] / [id number] Procedures Procedure Name Priority Date/Time Associated Diagnosis Comments CT RENAL STONE STUDY (ABDOMEN AND PELVIS W/O CONTRAST) Stat with Interpretation 07/29/2024 8:57 PM STAGE DRIVER URINALYSIS REFLEX IF INDICATED BY ABNORMAL RESULTS STAT 07/29/2024 8:44 PM STAGE DRIVER GOLD TOP TUBE STAT 07/29/2024 8:35 PM STAGE DRIVER BLUE TOP TUBE STAT 07/29/2024 8:35 PM STAGE DRIVER CBC WITH AUTO DIFFERENTIAL STAT 07/29/2024 8:35 PM STAGE DRIVER EXTRA TUBES STAT 07/29/2024 8:35 PM STAGE DRIVER LIPASE STAT 07/29/2024 8:35 PM STAGE DRIVER CMP (COMPREHENSIVE METABOLIC PANEL) STAT 07/29/2024 8:35 PM STAGE DRIVER COMPLETE BLOOD COUNT (CBC) WITH DIFF STAT 07/29/2024 8:35 PM STAGE DRIVER from Last 3 Months Results * CT RENAL STONE STUDY (ABDOMEN AND PELVIS W/O CONTRAST) (07/29/2024 8:57 PM STAGE DRIVER) Anatomical Region Laterality Modality Abdomen N/A Computed Tomogra phy 07/29/2024 9:44 PM STAGE DRIVER Impressions 07/29/2024 9:46 PM STAGE DRIVER IMPRESSION: No acute finding. Narrative 07/29/2024 9:46 PM STAGE DRIVER EXAM DESCRIPTION: CT RENAL STONE STUDY (ABDOMEN AND PELVIS W/O CONTRAST) REASON FOR STUDY: RLQ and right flank pain today TECHNIQUE: CT scan of the abdomen and pelvis performed without intravenous and without oral contrast using helical scanning technique. Reconstructed coronal and sagittal MPR images reviewed. All images stored on PACS. Automated exposure control was used as a dose optimization technique for this examination. COMPARISON: None FINDINGS: The sensitivity for detection of visceral lesions is diminished without the use of intravenous contrast. LOWER CHEST: No significant pulmonary abnormalities. No effusion. LIVER: Normal size. No identified cystic or solid masses. GALLBLADDER: No stones identified. No wall thickening or inflammatory changes. BILE DUCTS: No intrahepatic or extrahepatic ductal dilatation. SPLEEN: Normal size. No focal lesions. PANCREAS: No identified cystic or solid masses. No significant calcifications. No adjacent inflammation or peripancreatic fluid collections. Pancreatic duct not dilated. ADRENALS: Normal. KIDNEYS/URINARY TRACT: No identified significant cystic or solid masses. No stones. No hydronephrosis or hydroureter. Urinary bladder is unremarkable. GI: No dilated bowel loops. No obvious wall thickening. Normal appendix. No significant diverticular disease. Postoperative changes gastric bypass. PERITONEUM: No ascites or free air. RETROPERITONEUM: No mass or adenopathy. REPRODUCTIVE: No significant abnormality. VASCULATURE: No abdominal aortic aneurysm. MUSCULOSKELETAL: No significant abnormality. OTHER: No other abnormality. THIS IS AN ELECTRONICALLY VERIFIED FINAL REPORT 07/29/2024 9:44 PM - Electronically signed by Guicho Chester M.D., KT: AIDAN Report ID: [id number] Reading Location: [id number] Procedure Note Guicho Chester MD - 07/29/2024 EXAM DESCRIPTION: CT RENAL STONE STUDY (ABDOMEN AND PELVIS W/O CONTRAST) REASON FOR STUDY: RLQ and right flank pain today TECHNIQUE: CT scan of the abdomen and pelvis performed without intravenous and without oral contrast using helical scanning technique. Reconstructed coronal and sagittal MPR images reviewed. All images stored on PACS. Automated exposure control was used as a dose optimization technique for this examination. COMPARISON: None FINDINGS: The sensitivity for detection of visceral lesions is diminished without the use of intravenous contrast. LOWER CHEST: No significant pulmonary abnormalities. No effusion. LIVER: Normal size. No identified cystic or solid masses. GALLBLADDER: No stones identified. No wall thickening or inflammatory changes. BILE DUCTS: No intrahepatic or extrahepatic ductal dilatation. SPLEEN: Normal size. No focal lesions. PANCREAS: No identified cystic or solid masses. No significant calcifications. No adjacent inflammation or peripancreatic fluid collections. Pancreatic duct not dilated. ADRENALS: Normal. KIDNEYS/URINARY TRACT: No identified significant cystic or solid masses. No stones. No hydronephrosis or hydroureter. Urinary bladder is unremarkable. GI: No dilated bowel loops. No obvious wall thickening. Normal appendix. No significant diverticular disease. Postoperative changes gastric bypass. PERITONEUM: No ascites or free air. RETROPERITONEUM: No mass or adenopathy. REPRODUCTIVE: No significant abnormality. VASCULATURE: No abdominal aortic aneurysm. MUSCULOSKELETAL: No significant abnormality. OTHER: No other abnormality. THIS IS AN ELECTRONICALLY VERIFIED FINAL REPORT 07/29/2024 9:44 PM - Electronically signed by Guicho Chester M.D. KT: AIDAN Report ID: [id number] Reading Location: [id number] IMPRESSION: No acute finding. Agustín Castaneda MD IMG CT ORDERABLES Final R esult * (ABNORMAL) URINALYSIS REFLEX IF INDICATED BY ABNORMAL RESULTS (07/29/2024 8:44 PM STAGE DRIVER) SPECIFIC GRAVITY 1.020 1.003 - 1.030 07/29/2024 9:11 PM [facility] URINE PH 6.0 5.0 - 9.0 07/29/2024 9:11 PM [facility] WBC ESTERASE 100 /uL(A) Negative 07/29/2024 9:11 PM [facility] NITRITE Negative Negative 07/29/2024 9:11 PM [facility] PROTEIN, RANDOM URINE 30 mg/dL(A) Negative 07/29/2024 9:11 PM [facility] URINE GLUCOSE, QUAL Negative Negative 07/29/2024 9:11 PM [facility] URINE KETONES Negative Negative 07/29/2024 9:11 PM [facility] UROBILINOGEN 4 mg/dL(A) Normal mg/dL 07/29/2024 9:11 PM [facility] URINE BLOOD 10 /uL(A) Negative iam/ul 07/29/2024 9:11 PM [facility] URINALYSIS COLOR Yellow 07/29/19 25 9:11 PM [facility] URINALYSIS CLARITY Clear 07/29/2024 9:11 PM [facility] WBC (Urine) 0-5 Negative, 0-5 /hpf 07/29/2024 9:11 PM [facility] URINE RBC'S 0-2 Negative, 0-2 /hpf 07/29/2024 9:11 PM [facility] EPITHELIAL CELLS Large amount squamous /lpf 07/29/2024 9:11 PM [facility] BACTERIA, URINE Many(A) Negative /hpf 07/29/2024 9:11 PM [facility] Urine URINE SPECIMEN COLLECTION, CLEAN CATCH / Unknown Non-Phlebotomy Collection / Unknown 07/29/2024 8:44 PM STAGE DRIVER 07/29/2024 8:50 PM STAGE DRIVER Agustín Castaneda MD URINE ORDERABLES Final Re sult Performing Organization Address [facility]/ZIP Co de Phone Number [facility] [address] [place] [address] * Gold Top Tube (07/29/2024 8:35 PM STAGE DRIVER) Blood No Phlebotomy Charged / Unknown 07/29/2024 8:35 PM STAGE DRIVER 07/29/2024 8:51 PM STAGE DRIVER Agustín Castaneda MD CHEMISTRY ORDERABLES Cady l Result Performing Organization Address [facility]/ZIP Co de Phone Number [facility] [address] [place] [address] * Blue Top Tube (07/29/2024 8:35 PM STAGE DRIVER) Blood No Phlebotomy Charged / Unknown 07/29/2024 8:35 PM STAGE DRIVER 07/29/2024 8:51 PM STAGE DRIVER Agustín Castaneda MD HEMATOLOGY ORDERABLES Fin al Result Performing Organization Address [facility] Co de Phone Number [facility] [address] [place] [address] * (ABNORMAL) CBC with Auto Differential (07/29/2024 8:35 PM STAGE DRIVER) WBC 10.56 4.00 - 12.00 10(3)/mcL 07/29/2024 8:53 PM STAGE DRIVER [facility] RBC 4.47 3.80 - 5.30 10(6)/mcL 07/29/2024 8:53 PM STAGE DRIVER [facility] HEMOGLOBIN (HGB) 12.2 12.0 - 15.8 g/dL 07/29/2024 8:53 PM STAGE DRIVER [facility] HEMATOCRIT (HCT) 37.8 36.0 - 47.0 % 07/29/2024 8:53 PM [facility] MCV 84.6 82.0 - 96.0 fL 07/29/2024 8:53 PM [facility] MCH 27.3 26.0 - 34.0 pg 07/29/2024 8:53 PM [facility] MCHC 32.3 31.0 - 36.0 g/dL 07/29/2024 8:53 PM [facility] PLATELET COUNT 309 140 - 440 10(3)/mcL 07/29/2024 8:53 PM [facility] RDW 13.2 11.8 - 15.5 % 07/29/2024 8:53 PM [facility] MPV 11.5 9.7 - 12.4 fL 07/29/2024 8:53 PM [facility] NEUTROPHILS 53.6 47.0 - 73.0 % 07/29/2024 8:53 PM [facility] LYMPHOCYTES 37.9 18.0 - 42.0 % 07/29/2024 8:53 PM [facility] MONOCYTES 6.9 4.0 - 12.0 % 07/29/2024 8:53 PM [facility] EOSINOPHILS 0.9 0.0 - 5.0 % 07/29/2024 8:53 PM [facility] BASOPHILS 0.7 0.0 - 1.0 % 07/29/2024 8:53 PM [facility] ABSOLUTE NEUTROPHILS 5.67 1.60 - 7.70 10(3)/mcL 07/29/2024 8:53 PM [facility] ABSOLUTE LYMPHOCYTES 4.00(H) 1.30 - 3.20 10(3)/mcL 07/29/2024 8:53 PM [facility] ABSOLUTE MONOCYTES 0.73 0.20 - 1.00 10(3)/mcL 07/29/2024 8:53 PM [facility] ABSOLUTE EOSINOPHIL 0.09 0.00 - 0.40 10(3)/mcL 07/29/2024 8:53 PM STAGE DRIVER [facility] ABSOLUTE BASOPHILS 0.07 0.00 - 0.10 10(3)/mcL 07/29/2024 8:53 PM STAGE DRIVER [facility] NRBC PER 100 WBC 0 07/29/19 8:53 PM STAGE DRIVER [facility] Blood Venipuncture / Unknown 07/29/2024 8:35 PM STAGE DRIVER 07/29/2024 8:50 PM STAGE DRIVER Agustín Castaneda MD HEMATOLOGY ORDERABLES Fin al Result [facility] [address] [place] [address] * Lipase [id number] (07/29/2024 8:35 PM STAGE DRIVER) LIPASE 20 8 - 78 U/L 07/29/2024 9:10 PM STAGE DRIVER [facility] Blood Venipuncture / Unknown 07/29/2024 8:35 PM STAGE DRIVER 07/29/2024 8:50 PM STAGE DRIVER Agustín Castaneda MD CHEMISTRY ORDERABLES Cady l Result Performing Organization Address City/[facility]/ZIP Co de Phone Number [facility] [address] [place] [address] * Comprehensive Metabolic Panel (Cmp) [id number] (07/29/2024 8:35 PM STAGE DRIVER) SODIUM 138 136 - 145 mmol/L 07/29/2024 9:10 PM STAGE DRIVER [facility] POTASSIUM 4.0 3.5 - 5.1 mmol/L 07/29/2024 9:10 PM STAGE DRIVER [facility] CHLORIDE 106 98 - 107 mmol/L 07/29/2024 9:10 PM STAGE DRIVER [facility] CO2, VENOUS 25 22 - 30 mmol/L 07/29/2024 9:10 PM [facility] ANION GAP 11.0 <18.0 mmol/L 07/29/2024 9:10 PM [facility] GLUCOSE 91 70 - 99 mg/dL 07/29/2024 9:10 PM [facility] BUN 14 5 - 18 mg/dL 07/29/2024 9:10 PM [facility] CREATININE, BLOOD 0.83 0.60 - 1.00 mg/dL 07/29/2024 9:10 PM [facility] BUN/CREATININE RATIO 17 12 - 20 ratio 07/29/2024 9:10 PM [facility] TOTAL PROTEIN 6.9 6.3 - 8.2 g/dL 07/29/2024 9:10 PM [facility] ALBUMIN 3.7 3.5 - 5.0 g/dL 07/29/2024 9:10 PM [facility] A/G RATIO 1.2 1.0 - 2.2 07/29/2024 9:10 PM [facility] CALCIUM 8.7 8.7 - 10.5 mg/dL 07/29/2024 9:10 PM [facility] T BILI 0.3 0.2 - 1.2 mg/dL 07/29/2024 9:10 PM [facility] SGOT (AST) 16 5 - 34 U/L 07/29/2024 9:10 PM [facility] SGPT (ALT) 18 0 - 55 U/L 07/29/2024 9:10 PM [facility] ALKALINE PHOSPHATASE 98 40 - 150 U/L 07/29/2024 9:10 PM [facility] GFR, ESTIMATED >60 >=60 07/29/2024 9:10 PM [facility] Comment: Creatinine Clearance is the preferred criteria for selecting drug dose adjustments in renally impaired patients. The GFR is provided as additional pertinent clinical information. GFR is reported in mL/min/1.73 sq m. Calculation based on the Chronic Kidney Disease Epidemiology Collaboration (CKD- EPI) equation refit without adjustment for race. GFR, EST. >60 >=60 025 9:10 PM STAGE DRIVER [facility] GFR, EST. NONAFRICAN >60 >=60 07/29/2024 9:10 PM STAGE DRIVER [facility] Blood Venipuncture / Unknown 07/29/2024 8:35 PM STAGE DRIVER 07/29/2024 8:50 PM STAGE DRIVER us Agustín Castaneda MD CHEMISTRY ORDERABLES Cady poon Result [facility] [address] [place] [address] from Last 3 Months Insurance [place] Member Subscriber Plan / Payer (Ef fective 2024-Present) Name:Raleigh Curry Relation to Subscriber:Self Name:Raleigh Curry Payer ID:[id number] Group ID:Not on file Type:Not on file Address: [address] Care Teams Senior Stack Engineer Relationship Specialty Start Date End Date Faye Paul MD [address] [facility] [place] [place] [address] PCP - General Family Medicine 04/17/22
--- OUTSIDE RECORDS SUMMARY | 2024-10-09 08:23 | XMS_ITS | Encounter Summary ---
Author Organization [facility] Address [address] [place] [address] Phone Care Team Providers Care Priming Mixture Carrier Name Role Phone Ghassan Barbosa MD Primary Care Provider Faye Paul MD Primary Care Provide r Encounter Details Date Type Department Care Team (Late st Contact Info) Description 04/02/2022 [facility] [address] [place] [id number] Nathaniel Crawley, DO [address] [place] [address] Pre-op testing (Primary Dx) Social History Tobacco Use Types Packs/Day Years [...] suspected to have Coronavirus/COVID-19? No / Unsure 04/02/2022 2:28 PM CDT documented as of this encounter Plan of Treatment Not on file documented as of this encounter Results * (ABNORMAL) HEMOGLOBIN & HEMATOCRIT (H&H) (04/17/2022 4:07 PM CDT) [facility] HEMOGLOBIN (HGB) 10.7(L) 12.0 - 15.8 g/dL 04/17/2022 4:42 PM CDT [facility] HEMATOCR[facility] (HCT) 35.9(L) 36.0 - 47.0 % 04/17/2022 4:42 PM CDT [facility] Blood Venipuncture / Unknown 04/17/2022 4:07 PM CDT 04/17/2022 4:38 PM CDT us Nathaniel Crawley DO HEMATOLOGY ORDERABL ES Final Result [facility] [address] [place] [address] * SARS-COV-2 BY MOLECULAR (04/17/2022 4:05 PM CDT) [facility] SARSCOV2 NOT DETECTED (Referenc e Range for this test is Not Detected) [facility] ID NOW 04/17/2022 4:58 PM CDT [facility] Comment:This test was perfor med by a MOLECULAR, NON-PCR method Other NASAL STRUCTURE / Unknown Non-Phlebotomy Collection / Unknown 04/17/2022 4:05 PM CDT 04/17/2022 4:39 PM CDT Narrative [facility] - 04/17/2022 4:58 PM CDT This test has been authorized by the FDA under an Emergency Use Authorization (EUA) only. Negative results should be treated as presumptive and, if inconsistent with clinical signs and symptoms or necessary for patient management, the patient should be tested with an alternative molecular assay. Negative results do not preclude SARS-CoV-2 infection or any other respiratory pathogen. Additional information for Clinicians can be found at: https://www.fda.gov/media/233473/download Additional information for Patients can be found at: https://www.fda.gov/media/378034/download Nathaniel Crawley DO MICROBIOLOGY - GENE RAL ORDERABLES Final Result [facility] [address] [place] [address] documented in this encounter Visit Diagnoses Diagnosis Pre-op testing- Primary Preoperative examination, unspecified documented in this encounter Additional Health Concerns Infection Onset Date Last Indicated Resolved Time COVID - 19 11/03/2023 11/03/2023 11/03/2023 9:16 PM CDT COVID - 19 Confirmed 11/03/2023 11/03/2023 024 12:16 AM CDT documented as of this encounter Care Teams Priming Mixture Carrier Relationship Specialty Start Date End Date Ghassan Barbosa MD [address] [facility] [address] [place] [address] PCP - General Internal Medicine 11/07/21 04/16/22 Faye Paul MD [address] [facility] [address] [place] [address] PCP - General Family Medicine 04/17/22 documented as of this encounter
--- OUTSIDE RECORDS SUMMARY | 2024-10-09 08:23 | XMS_ITS | Encounter Summary ---
Author Organization [facility] Address [address] [place] [place] [address] Phone Care Team Providers Care Data Integration Analyst Name Role Phone Faye Paul MD Primary Care Provide r Encounter Details Date Type Department Care Team (Latest Contact Info) Description 07/09/2022 [facility] [address] [place] [id number] Sabrina Ferreira, DPM [address] [place] [address] Pre-op testing (Primary Dx) Social History Tobacco [...] suspected to have Coronavirus/COVID-19? No / Unsure 07/10/2022 12:27 PM ELECTRICAL PANEL BUILDER documented as of this encounter Plan of Treatment Not on file documented as of this encounter Visit Diagnoses Diagnosis Pre-op testing- Primary Preoperative examination, unspecified documented in this encounter Additional Health Concerns Infection Onset Date Last Indicated Resolved Time COVID - 19 11/03/2023 11/03/2023 11/03/2023 9:16 PM CDT COVID - 19 Confirmed 11/03/2023 11/03/2023 024 12:16 AM CDT documented as of this encounter Care Teams Data Integration Analyst Relationship Specialty Start Date End Date Faye Paul MD [address] [facility] [address] [place] [id number] PCP - General Family Medicine 04/17/22 documented as of this encounter
--- OUTSIDE RECORDS SUMMARY | 2024-10-09 08:24 | XMS_ITS ---
Author Organization [facility] Address [address] [place] [address] Care Team Providers Care Tread Cutter Name Role Phone Lucretia Lemus Primary Care Provider REASON FOR VISIT Labs Social History Sex Assigned At : Social History Observation Description Sex Assigned At Female Encounters Encounter Location Date Provider Diagnosis [address] [place] [address] 05/24/2024 Lucretia Lemus Plan Of Treatment No Information Progress Notes * Mira CURRY LDOB: [birth year] (38 yo F)Acc No.[id number]:05/24/2024 UNLOCKED PROGRESS NOTE Patient: Mira CANDELARIO Provider: NICKIE Mishra, BIN CLEANER, ARCHITECTURAL DRAFTING INSTRUCTOR-C :1985 A ge:38 Y S ex:Female Date:05/24/2024 Address:[address] [id number] Subjective: * Chief Complaints: * 1 . Labs. * Medical History: Objective: * Vitals: Assessment: Plan: * Treatment: * * Electronic signature of Peterson Lemus , [id number] on 10/09/2024 at 08:23 AM CDT Sign off status: Pending * Provider: Nina Lemus MSN, BIN CLEANER, ARCHITECTURAL DRAFTING INSTRUCTOR-C Date: 1 07/24/2023 Generated for Mindyi ng/Farong/eTransmitting on: 0 10/09/2024 08:23 AM CDT
--- OUTSIDE RECORDS SUMMARY | 2024-10-09 08:24 | XMS_ITS | Encounter Summary ---
Author Organization [facility] Address [address] [place] [id number] Care Team Providers Care Him Analyst Name Role Phone Kaila Hernandez Primary Care Provider [phone] Helga Wilks PA-C Primary Care Provider [phone] Encounter Details Date Type Department Care Team (Late st Contact Info) Description 11/23/2019 [place] [employer] Message Enc [facility] Medical Group Family & Internal Medicine [facility] [address] [place] [address] Kaila Hernandez APNP [address] [address] RE: Follow Up/Update Social History Tobacco Use Types Packs/Day Years Used Date Smoking Tobacco: Never Smokeless Tobacco: Never Alcohol Use Standard Drinks/Week Comments No 0 (1 standard drink = 0.6 oz pur e alcohol) AUDIT-C Answer Date Recorded Frequency of Alcohol Consumption Never 06/17/2018 Average Number of Drinks Not on file 018 Frequency of Binge Drinking Not on file 05/22 Comments No Sex and Gender Information Value Date Recorded Sex Assigned at Female 07/22/2018 9:07 AM BULLDOZER ENGINEER Legal Sex Female 7:37 PM CDT Gender Identity Female 07/22/2018 9:07 AM BULLDOZER ENGINEER Sexual Orientation Lesbian or [place] 03/23/2019 2: 09 PM CDT COVID-19 Exposure Response Date Recorded In the last month, have you been in contact with someone who was confirmed or suspected to have Coronavirus / COVID-19? No / Unsure 11/15/2019 6:55 AM CDT documented as of this encounter Progress Notes * Joann Maya RN - 12/07/2019 11:02 AM CDT Patient called and states she had an appointment with ENT MD today and had to cancel will reschedule * Joann Maya RN - 12/07/2019 10:53 AM CDT Message left for patient to return call * CANDELARIO Lazaro - 11/23/2019 12:59 PM CDT Is she still taking decongestant, flonase and pain medication? I placed a referral for ENT as well.Have they contacted her? * Joann Maya RN - 11/23/2019 12:13 PM CDT Please advise documented in this encounter Plan of Treatment Not on file documented as of this encounter Visit Diagnoses Not on filedocumented in this encounter Additional Health Concerns Infection Onset Date Last Indicated Resolved Time C. difficile 02/28/2017 02/28/2017 documented as of this encounter Care Teams Him Analyst Relationship Specialty Start Date End Date Kaila Hernandez APNP [id number] [address] PCP - General Nurse Practitioner Family 07/05/19 8/ Helga Wilks PA-C [address] [address] PCP - General PHYSICIAN HAND COPER 03/10/23 documented as of this encounter
--- OUTSIDE RECORDS SUMMARY | 2024-10-09 08:24 | XMS_ITS | Encounter Summary ---
Author Organization [facility] Address [address] [place] [address] Care Team Providers Care Internal Controls Specialist Name Role Phone Kaila Hernandez Primary Care Provider [phone] Helga Wilks PA-C Primary Care Provider [phone] Encounter Details Date Type Department Care Team (Late st Contact Info) Description 02/20/2020 [employer] Message Enc [facility] Medical Group Family & Internal Medicine [facility] [address] [place] [address] Kaila Hernandez APNP [address] [address] RE: Question Social History Tobacco Use Types Packs/Day Years [...] Sex Assigned at Female 07/22/2018 9:07 AM WARDROBE IMAGE CONSULTANT Legal Sex Female 7:37 PM CDT Gender Identity Female 07/22/2018 9:07 AM WARDROBE IMAGE CONSULTANT Sexual Orientation Lesbian or [place] 03/23/2019 2: 09 PM CDT COVID-19 Exposure Response Date Recorded In the last month, have you been in contact with someone who was confirmed or suspected to have Coronavirus / COVID-19? No / Unsure 02/02/2020 3:54 PM CDT documented as of this encounter Plan of Treatment Not on file documented as of this encounter Visit Diagnoses Not on filedocumented in this encounter Additional Health Concerns Infection Onset Date Last Indicated Resolved Time C. difficile 02/28/2017 02/28/2017 documented as of this encounter Care Teams Internal Controls Specialist Relationship Specialty Start Date End Date Kaila Hernandez APNP [address] [facility] [address] [place] [address] PCP - General Nurse Practitioner Family 07/05/1902/19 Helga Wilks, BYRONC [address] [address] PCP - General PHYSICIAN MACHINE I COREMAKER 03/10/23 documented as of this encounter
--- OUTSIDE RECORDS SUMMARY | 2024-10-09 08:24 | XMS_ITS | Encounter Summary ---
Author Organization [facility] Address [address] [place] [address] Care Team Providers Care Refining Engineer Name Role Phone Kaila Hernandez Primary Care Provider [phone] Helga Wilks PA-C Primary Care Provider [phone] Encounter Details Date Type Department Care Team (Late st Contact Info) Description 08/05/2019 [place] Message Enc [facility] Medical Group Family & Internal Medicine [facility] [phone] [place] [address] Kaila Hernandez APNP [address] [address] RE: Medication Questions Social History Tobacco Use Types Packs/Day Years [...] Sex Assigned at Female 07/22/2018 9:07 AM NEEDLE LOOM OPERATOR HELPER Legal Sex Female 7:37 PM CDT Gender Identity Female 07/22/2018 9:07 AM NEEDLE LOOM OPERATOR HELPER Sexual Orientation Lesbian or [place] 03/23/2019 2: 09 PM CDT documented as of this encounter Progress Notes * CANDELARIO Lazaro - 08/09/2019 12:20 PM CST Let's try aripiprazole (Abilify) 15mg daily #30. I will see her back in a month to see how it is working. Thank you. LE LOOM OPERATOR HELPER * Ariella Hopkins RN - 08/09/2019 9:33 AM CST Please advise on what medication you would like to try pt on. Thanks! LE LOOM OPERATOR HELPER documented in this encounter Plan of Treatment Not on file documented as of this encounter Visit Diagnoses Not on filedocumented in this encounter Additional Health Concerns Infection Onset Date Last Indicated Resolved Time C. difficile 02/28/2017 02/28/2017 documented as of this encounter Care Teams Refining Engineer Relationship Specialty Start Date End Date Kaila Hernandez APNP [phone] [address] PCP - General Nurse Practitioner Family 07/05/1902/19 Helag Wilks PA-C [address] [address] PCP - General PHYSICIAN BIOFUELS ENGINEERING MANAGER 03/10/23 documented as of this encounter
--- OUTSIDE RECORDS SUMMARY | 2024-10-09 08:24 | XMS_ITS ---
Author Organization [facility] Address [address] [place] [address] Care Team Providers Care Supervisor Underwriting Clerks Name Role Phone Lucretia Lemus Primary Care Provider Allergies Allergen (clinical drug ingredient) Drug/Non Drug Allergy documented on EMR Reaction Allergy Type Onset Date Status naproxen Naproxen Hives Drug Allergy Active REASON FOR VISIT 6 Week Psych F/U & Med Refill Medications Medication SIG (Take, Route, Frequency, Duration) Notes Start Date End Date Status Escitalopram Oxalate 20 MG 1 tablet Oral ly Once a day for 30 days Active clonazePAM 0.5 MG 1 tablet on the tong ue and allow to dissolve Orally Once a day for 20 days 09/30/2024 Active Lurasidone HCl 40 MG as directed Orally one tablet day one, two tablets day two, then start 120 mg script take with food 09/30/2024 Active hydrOXYzine Pamoate 25 MG TAKE 1 CAPSULE BY MOUTH TWICE A DAY PRN for 30 days Active traZODone HCl 100 MG 2.5 tablets at bedt annabelle Orally Once a day for 30 days Active Lisinopril 5 MG 1 tablet Orally Once a day for 30 day(s) Active B12 Active Prazosin HCl 1 MG TAKE 1 CAPSULE AT BE DTIME ORALLY ONCE A DAY WITH THE 2 MG DOSE FOR A TOTAL OF 3 MG for 90 Active Lurasidone HCl 120 MG 1 tablet in the ev ening with food Orally Once a day for 30 days Active Prazosin HCl 2 MG TAKE 2 CAPSULES BY M OUTH ONCE DAILY AT BEDTIME for 30 days Active hydrOXYzine Pamoate 25 MG TAKE 1 CAPSULE BY MOUTH TWICE A DAY PRN for 30 days Active Social History Sex Assigned At : Social History Observation Description Sex Assigned At Female Encounters Encounter Location Date Provider Diagnosis [address] [address] 09/30/2024 Lucretia Lemus Nutritional counseli ng Z71.3 ; Schizoaffective disorder, bipolar type with good prognostic features F25.0 ; Complex posttraumatic stress disorder F43.10 ; Social anxiety disorder of childhood F40.10 ; History of ADHD Z86.59 and Medication monitoring encounter Z51.81 Assessments Encounter Date Diagnosis (ICD Code) Assessment Notes Treatment Notes Treatment Clinical Notes Section Notes 09/30/2024 Nutritional counseling (ICD-10 - Z71.3) 09/30/2024 Schizoaffective disorder, bipolar type with good prognostic features (ICD-10 - F25.0) Latuda increased to 120 x 1 month then client ran out of meds x 4.5 days, weaning back up, discussed r/b/se, f/u in 4 weeks. 09/30/2024 Complex posttraumatic stress disorder (ICD-10 - F43.10) 09/30/2024 Social anxiety disorder of childhood (ICD-10 - F40.10) PDMP without concerns. 09/30/2024 History of ADHD (ICD-10 - Z86.59) Encouraged therapy 09/30/2024 Medication monitoring encounter (ICD-10 - Z51.81) 09/30/2024 Other Reasons, potential benefits, potential risks, interactions and side effects of all medications were discussed. The Patient/Guardian asked appropriate questions, appeared to understand the answers, and decided to accept the treatment and continue being followed. Alternatives and expected course without treatment were reviewed. The Patient/Guardian is aware of the need to contact the office or return for an earlier appointment if any problems or concerns arise. May also contact the 24-hour crisis hotline (R), refer to the closest emergency room or call 911 if new symptoms arise of existing symptoms worsen. The Patient/Guardian is aware that this would apply to symptoms like: suicidal ideation, homicidal ideation, high risk behaviors, manic symptoms, psychotic symptoms, physical symptoms, or any other symptoms that may be dangerous to self or others. Greater than 50% of time spent on coordination and counseling where psychopharmacology as well as psychotherapeutic interventions were discussed along with review of treatments in the past. Education provided concerning need for adequate hydration. Patient/Guardian verbalized understanding of education, treatment plan and follow up. This session was completed telephonically with client/parental/guard dung consent: Unable to determine movement status, assess appearance, affect, AIMS, or vital signs. Plan Of Treatment Medication Medication Name Sig Start Date Stop Date Notes Escitalopram Oxalate 20 MG 1 tablet Oral ly Once a day for 30 days clonazePAM 0.5 MG 1 tablet on the tong ue and allow to dissolve Orally Once a day for 20 days 09/30/2024 Lurasidone HCl 40 MG as directed Orally one tablet day one, two tablets day two, then start 120 mg script 09/30/2024 traZODone HCl 100 MG 2.5 tablets at bedt annabelle Orally Once a day for 30 days Lurasidone HCl 120 MG 1 tablet in the ev ening with food Orally Once a day for 30 days Prazosin HCl 2 MG TAKE 2 CAPSULES BY M OUTH ONCE DAILY AT BEDTIME for 30 days hydrOXYzine Pamoate 25 MG TAKE 1 CAPSULE BY MOUTH TWICE A DAY PRN for 30 days Treatment Notes Assessment Notes Schizoaffective disorder, bi polar type with good prognostic features Latuda increased to 120 x 1 month then client ran out of meds x 4.5 days, weaning back up, discussed r/b/se, f/u in 4 weeks. Social anxiety disorder of childhood PDM P without concerns. History of ADHD Encouraged therapy Other Reasons, potential benefits, potential risks, interactions and side effects of all medications were discussed. The Patient/Guardian asked appropriate questions, appeared to understand the answers, and decided to accept the treatment and continue being followed. Alternatives and expected course without treatment were reviewed. The Patient/Guardian is aware of the need to contact the office or return for an earlier appointment if any problems or concerns arise. May also contact the 24-hour crisis hotline (R), refer to the closest emergency room or call 911 if new symptoms arise of existing symptoms worsen. The Patient/Guardian is aware that this would apply to symptoms like: suicidal ideation, homicidal ideation, high risk behaviors, manic symptoms, psychotic symptoms, physical symptoms, or any other symptoms that may be dangerous to self or others. Greater than 50% of time spent on coordination and counseling where psychopharmacology as well as psychotherapeutic interventions were discussed along with review of treatments in the past. Education provided concerning need for adequate hydration. Patient/Guardian verbalized understanding of education, treatment plan and follow up. This session was completed telephonically with client/parental/guardian consent: Unable to determine movement status, assess appearance, affect, AIMS, or vital signs. Future Test Test Name Order Date Hemoglobin A1c* 09/30/2024 TSH* 09/30/2024 CBC With Differential/Platelet* 10/01/19 25 Lipid Panel* 09/30/2024 CMP 14 Comprehensive Metabolic Panel* Next Appt Details Follow Up: 4 Weeks, Reason: Psych F/U, may be telehealth Progress Notes * BEBETO Mira LDOB: [birth year] (38 yo F)Acc No.[id number]:09/30/2024 Patient: Mira CANDELARIO Provider: Nina Lemus, MSN, CAPITAL PROJECT ENGINEER, MICROSTRATEGY ARCHITECT-C :1985 A ge:38 Y S ex:Female Date:09/30/2024 [address] [id number] Subjective: * Chief Complaints: * 6 Week Psych F/U & Med Refill * HPI: D epression Screening: PHQ-9 L ittle interest or pleasure in doing things S everal days, F eeling down, depressed, or hopeless S everal days, T rouble falling or staying asleep, or sleeping too much N ot at all, F eeling tired or having little energy N ot at all, P oor appetite or overeating N ot at all, F eeling bad about yourself or that you are a failure, or have let yourself or your family down N ot at all, T rouble concentrating on things, such as reading the newspaper or watching television N ot at all, M oving or speaking so slowly that other people could have noticed; or the opposite, being so fidgety or restless that you have been moving around a lot more than usual N ot at all, T houghts that you would be better off or of hurting yourself in some way N ot at all, T otal Score 2 ,?Interpretation M inimal Depression. S creening: [place] Suicide Severity Rating Scale (LF) D o you want to initiate with S creener form, 1 . Wish to be : Have you wished you were or wished you could go to sleep and not wake up? N o, 2 . Suicidal Thoughts: Have you actually had any thoughts of killing yourself? N o, 6 . Suicide Behavior Question: Have you ever done anything,started to do anything, or prepared to end your life? N o, I nterpretation: L ow Risk. C SSRS Interpretation and Follow Up Plan: CSSRS Interpretation and Follow Up Plan C SSRS Screen documented using SF Y es, R isk Disposition from SF L ow - No Follow Up Plan Required, F ollow Up Plan N o Follow Up Plan required at this time.. P sychiatric Assessment - Current Symptoms: Client is a 38 yo F on the phone today stating things are good, but I have been off my Latuda for around 4 days. States the past few days have not been good due to not having the Latuda. Depression: 9/10 now, before being out of meds 4/10 Anxiety: 8/10 past few days, 2-3/10 before running out of meds Anger/irritability: / now, before running out 4-5/10 Appetite: No concerns Sleep: Good Energy: Good Social: Things at home going well. Concentration: Good Drugs/ETOH: Denies Hallucinations: Reports olfactory hallucinations with smoke, states she thinks this started before running out of medications Paranoia: Still high like always. Denies SI/HI. * ROS: P sych ROS: Constitutional D enies. E yes D enies. E ars/Nose/Mouth/Throat D enies. R espiratory D enies. A llergic/Immunologic D enies.?Cardiovascular R eports, H TN. G I D enies. G U D enies. M usculoskeletal D enies, t ics, tremors, abnormal motor movements.. N eurological D enies. I ntegumentary D enies. E ndocrine D enies. H ematological/Lymphatic D enies.?Psych R eports anger/irritability, Denies SI/HI. * Medical History: * Surgical History: L igament repair right foot 2015Plantar fasciitis left foot 2016Plantar fasciitis left foot 2018B/L knee surgeries x's 3 Left foot surgery 03/2022Left tendon repair 06/2022gastric bypass 10/2023 * Hospitalization/Major Diagno stic Procedure: * Family History: F ather: alive. M other: alive. 3 brother(s) , 1 sister(s) . . Mother-NA liver cirrohis, HTN, DM Father-Schizophrenia, HTN, pancreatic cancer(remission), DM Eligio-Liver Cirrhosis, DM, Schizophrenia, liver cancer oldest brother- schizophrenia, non-alcoholic liver cirrhosis, stage 4 Adopted son. * Social History: P rimary Social History: L iving Arrangement L iving Arrangement: I ndependent Living, I s this a supportive environment? Y es. A lcohol Use A lcohol Use Frequency: N ever. I llicit Substance Usage I llicit Substance Usage: Y es, S ubstance Used: C annabis, F requency Cannabis is used: weekly, I nterested in quitting: N o. 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 * Medications: T [id number] Lisinopril 5 MG Tablet 1 tablet Orally Once a day Prazosin HCl 1 MG Capsule TAKE 1 CAPSULE AT BEDTIME ORALLY ONCE A DAY WITH THE 2 MG DOSE FOR A TOTAL OF 3 MG hydrOXYzine Pamoate 25 MG Capsule TAKE 1 CAPSULE BY MOUTH TWICE A DAY PRN hydrOXYzine Pamoate 25 MG Capsule TAKE 1 CAPSULE BY MOUTH TWICE A DAY PRN Lurasidone HCl 120 MG Tablet 1 tablet in the evening with food Orally Once a day Prazosin HCl 2 MG Capsule TAKE 2 CAPSULES BY MOUTH ONCE DAILY AT BEDTIME traZODone HCl 100 MG Tablet 2.5 tablets at bedtime Orally Once a day clonazePAM 0.5 MG Tablet Disintegrating 1 tablet on the tongue and allow to dissolve Orally Once a day Escitalopram Oxalate 20 MG Tablet 1 tablet Orally Once a day Taking B12 Taking Lisinopril 5 MG Tablet 1 tablet Orally Once a day Taking Prazosin HCl 1 MG Capsule TAKE 1 CAPSULE AT BEDTIME ORALLY ONCE A DAY WITH THE 2 MG DOSE FOR A TOTAL OF 3 MG Taking hydrOXYzine Pamoate 25 MG Capsule TAKE 1 CAPSULE BY MOUTH TWICE A DAY PRN Taking hydrOXYzine Pamoate 25 MG Capsule TAKE 1 CAPSULE BY MOUTH TWICE A DAY PRN Taking Lurasidone HCl 120 MG Tablet 1 tablet in the evening with food Orally Once a day Taking Prazosin HCl 2 MG Capsule TAKE 2 CAPSULES BY MOUTH ONCE DAILY AT BEDTIME Taking traZODone HCl 100 MG Tablet 2.5 tablets at bedtime Orally Once a day Taking clonazePAM 0.5 MG Tablet Disintegrating 1 tablet on the tongue and allow to dissolve Orally Once a day Taking Escitalopram Oxalate 20 MG Tablet 1 tablet Orally Once a day * Allergies: N aproxen: Hives - Allergyno[Allergies Verified] Objective: * Vitals: * Examination: M ental Status Exam: SENSORIUM AND COGNITION Alert, Oriented to Person, Oriented to Place, Oriented to Time, Oriented to Situation. ATTENTION AND CONCENTRATION No deficits. ATTITUDE AND BEHAVIOR Cooperative, Receptive. MEMORY Immediate, Recent, Remote. MOOD E uthymic. SPEECH QUANTITY Appropriate. SPEECH QUALITY Appropriate volume. THOUGHT PROCESS Coherent and goal directed. THOUGHT CONTENT Appropriate - WNL. SUICIDAL IDEATION Denies suicidal ideation. HOMICIDAL IDEATION Denies homicidal ideation. HALLUCINATIONS O lfactory. INSIGHT Good. JUDGMENT Good. FUND OF KNOWLEDGE Good. ABILITY TO PARTICIPATE IN TREATMENT High. WILLINGNESS TO PARTICIPATE IN TREATMENT High. E xam limite due to telephone encounter. Assessment: * Assessment: 1. N utritional counseling - Z71.3 2 . S chizoaffective disorder, bipolar type with good prognostic features - F25.0 (Primary) 3 . C omplex posttraumatic stress disorder - F43.10 4 . S ocial anxiety disorder of childhood - F40.10 & #160; 5 . H istory of ADHD - Z86.59 6 . M edication monitoring encounter - Z51.81 Plan: * Treatment: 2. C omplex posttraumatic stress disorder Refill Prazosin HCl Capsule, 2 MG, TAKE 2 CAPSULES BY MOUTH ONCE DAILY AT BEDTIME, 30 days, 60, Refills 0; R efill traZODone HCl Tablet, 100 MG, 2.5 tablets at bedtime, Orally, Once a day, 30 days, 75 Tablet, Refills 0. 3. S ocial anxiety disorder of childhood Refill hydrOXYzine Pamoate Capsule, 25 MG, TAKE 1 CAPSULE BY MOUTH TWICE A DAY PRN, 30 days, 60, Refills 0; R efill clonazePAM Tablet Disintegrating, 0.5 MG, 1 tablet on the tongue and allow to dissolve, Orally, Once a day, 20 days, 20 Tablet, Refills 0. Notes: PDMP without concerns. 4. H istory of ADHD Notes: Encouraged therapy 5. M edication monitoring encounter L AB: CBC With Differential/Platelet* (Ordered for 09/30/2024) L AB: CMP 14 Comprehensive Metabolic Panel* (Ordered for 09/30/2024) L AB: TSH* (Ordered for 09/30/2024) L AB: Lipid Panel* (Ordered for 09/30/2024) L AB: Hemoglobin A1c* (Ordered for 09/30/2024) 6. O thers Notes: Reasons, potential benefits, potential risks, interactions and side effects of all medications were discussed. The Patient/Guardian asked appropriate questions, appeared to understand the answers, and decided to accept the treatment and continue being followed. Alternatives and expected course without treatment were reviewed. The Patient/Guardian is aware of the need to contact the office or return for an earlier appointment if any problems or concerns arise. May also contact the 24-hour crisis hotline (R), refer to the closest emergency room or call 911 if new symptoms arise of existing symptoms worsen. The Patient/Guardian is aware that this would apply to symptoms like: suicidal ideation, homicidal ideation, high risk behaviors, manic symptoms, psychotic symptoms, physical symptoms, or any other symptoms that may be dangerous to self or others. Greater than 50% of time spent on coordination and counseling where psychopharmacology as well as psychotherapeutic interventions were discussed along with review of treatments in the past. Education provided concerning need for adequate hydration. Patient/Guardian verbalized understanding of education, treatment plan and follow up. This session was completed telephonically with client/parental/guardian consent: Unable to determine movement status, assess appearance, affect, AIMS, or vital signs. * Procedure Codes: * Follow Up: 4 Weeks (Reason: Psych F/U, may be telehealth) * * Sign off status: Completed true * Provider: Nina Lemus, MSN, CAPITAL PROJECT ENGINEER, MICROSTRATEGY ARCHITECT-C Date: 0 09/30/2024 Generated for Nai maldonado/Aaron/eTdejaitting on: 0 10/09/2024 08:23 AM CDT History and Physical Notes * HPI (History of Present Illness) Category Sub-Category Detail Notes Category Not es Depression Screening PHQ-9 Little inte rest or pleasure in doing things: Several days Feeling down, depressed, or hopeless: Se veral days Trouble falling or staying asleep, or sl eeping too much: Not at all Feeling tired or having little energy: N ot at all Poor appetite or overeating: Not at all Feeling bad about yourself o r that you are a failure, or have let yourself or your family down: Not at all Trouble concentrating on thi ngs, such as reading the newspaper or watching television: Not at all Moving or speaking so slowly that other people could have noticed; or the opposite, being so fidgety or restless that you have been moving around a lot more than usual: Not at all Thoughts that you would be b ashley off or of hurting yourself in some way: Not at all Total Score: 2 Interpretation: Minimal Depression Psychiatric Assessment - Current Symptoms Client is a 38 yo F on the phone today stating things are good, but I have been off my Latuda for around 4 days. States the past few days have not been good due to not having the Latuda. Depression: /10 now, before being out of meds 4/10 Anxiety: / past few days, 2-3/10 before running out of meds Anger/irritability: 04/29 now, before running out 4-5/10 Appetite: No concerns Sleep: Good Energy: Good Social: Things at home going well. Concentration: Good Drugs/ETOH: Denies Hallucinations: Reports olfactory hallucinations with smoke, states she thinks this started before running out of medications Paranoia: Still high like always. Denies SI/HI. Screening [place] Suicide Severity Rating Scale (LF) Do you want to initiate with: Screener form 1. Wish to be : Have you wished you were or wished you could go to sleep and not wake up?: No 2. Suicidal Thoughts: Have you actually had any thoughts of killing yourself?: No 6. Suicide Behavior Question: Have you ever done anything,started to do anything, or prepared to end your life?: No Interpretation:: Low Risk CSSRS Interpretation and Follow Up Plan CSSRS Interpretation and Follow Up Plan CSSRS Screen documented using SF: Yes Risk Disposition from SF: Low - No Follo w Up Plan Required Follow Up Plan: No Follow Up Plan requir ed at this time. Examination Category Sub-Category Detail Notes Category Not es Mental Status Exam SENSORIUM AND COGNITION Alert, Oriented to Person, Oriented to Place, Oriented to Time, Oriented to Situation Exam limite due to telephone encounter. ATTENTION AND CONCENTRATION No deficits ATTITUDE AND BEHAVIOR Cooperative, Marina Dry Dock Manager tive MEMORY Immediate, Recent, R emote MOOD Euthymic SPEECH QUANTITY Appropriate SPEECH QUALITY Appropriate volume THOUGHT PROCESS Coherent and goal di rected THOUGHT CONTENT Appropriate - WNL SUICIDAL IDEATION Denies suicidal idea tion HOMICIDAL IDEATION Denies homicidal christoph ation HALLUCINATIONS Olfactory INSIGHT Good JUDGMENT Good FUND OF KNOWLEDGE Good ABILITY TO PARTICIPATE IN TREATMENT High WILLINGNESS TO PARTICIPATE IN TREATMENT High
--- OUTSIDE RECORDS SUMMARY | 2024-10-09 08:24 | XMS_ITS | Encounter Summary ---
Author Organization [facility] Address [address] [place] [address] Care Team Providers Care Skiving Machine Operator Name Role Phone Kaila Hernandez Primary Care Provider [phone] Helga Wilks PA-C Primary Care Provider [phone] Encounter Details Date Type Department Care Team (Late st Contact Info) Description 08/06/2019 Envis Message Enc [facility] [address] [place] [address] Kaila Hernandez APNP [id number] [address] RE: Referral Request Social History Tobacco Use Types Packs/Day Years [...] Sex Assigned at Female 07/22/2018 9:07 AM PUPPY TRAINER Legal Sex Female 7:37 PM CDT Gender Identity Female 07/22/2018 9:07 AM PUPPY TRAINER Sexual Orientation Lesbian or [place] 03/23/2019 2: 09 PM CDT documented as of this encounter Plan of Treatment Not on file documented as of this encounter Visit Diagnoses Not on filedocumented in this encounter Additional Health Concerns Infection Onset Date Last Indicated Resolved Time C. difficile 02/28/2017 02/28/2017 documented as of this encounter Care Teams Skiving Machine Operator Relationship Specialty Start Date End Date Kaila Hernandez APNP [id number] [facility] [address] [place] [id number] PCP - General Nurse Practitioner Family 07/05/1902/19 Helga Wilks PA-C [address] [facility] [address] [place] [id number] PCP - General PHYSICIAN PROJECT CONSTRUCTION ASSISTANT MANAGER 03/10/23 documented as of this encounter
--- OUTSIDE RECORDS SUMMARY | 2024-10-09 08:24 | XMS_ITS | Clinical Summary ---
Author Organization [facility] Address [address] [place] [address] Care Team Providers Care Vault Cashier Name Role Phone Helga Wilks PA-C Primary Care Provider Allergies Active Allergy Reactions Criticality Noted Date Comments Bee Venom Shortness of Breath, Nausea and Vomiting High 01/29/2018 Naproxen Shortness of Breath High 09/23/2012 Medications EPINEPHrine 0.3 MG/0.3ML injection Inject 0.3 mLs (0.3 mg total) into the muscle as needed for Anaphylaxis (difficulty breathing from allergic reaction). 1 each 9 Active ROPINIROLE 0.5 MG tabletIndicatio ns:RLS (restless legs syndrome) TAKE 1 TABLET (0.5 MG TOTAL) BY MOUTH 2 (TWO) TIMES DAILY. 60 tablet 2 9 Active fluticasone propionate (FLONASE) 50 MCG/ACT nasal sprayIndication s:Non-recurrent acute serous otitis media of left ear 2 sprays by Each Nostril route daily. 16 g 0 Active cetirizine 10 MG tabletIndicatio ns:Non-recurren t acute serous otitis media of left ear Take 1 tablet (10 mg total) by mouth daily. 30 tablet 0 Active Additional Information Patient taking differently:10 mg OralDaily as needed, Reported on 04/13/2020 ARIPiprazole (ABILIFY) 15 MG tabletIndicatio ns:Bipolar depression (CMS/HCC HHS/HCC) Take 1 tablet (15 mg total) by mouth daily. 90 tablet 1 0 Active aspirin 81 MG chewable tablet Chew 1 tablet (81 mg total) by mouth daily. 30 tablet 0 Active amLODIPine 5 MG tablet Take 1 tablet (5 mg total) by mouth daily. 30 tablet 0 Active atorvastatin 20 MG tablet Take 1 tablet (20 mg total) by mouth nightly at bedtime. 30 tablet 0 Active pantoprazole EC 40 MG tablet Take 1 tablet (40 mg total) by mouth daily. 30 tablet 0 Active ibuprofen 800 MG tablet every 8 (eight) hours as needed. 0 Active CYCLOBENZAPRINE 10 MG tabletIndicatio ns:TMJ (temporomandibu lar joint syndrome) TAKE 1 TABLET BY MOUTH TWICE A DAY NEEDED FOR MUSCLE SPASMS 30 tablet 0 Active guaiFENesin-cod eine (CHERATUSSIN AC) 100-10 MG/5ML syrupIndication s:Cough Take 5 mLs by mouth every 4 (four) hours as needed for Cough. Indications: Cough 100 mL 0 Active Active Problems Problem Noted Date Diagnosed Date Shoulder pain, left 04/21/2020 Acute chest pain 01/26/2020 Elevated blood pressure read ing with diagnosis of hypertension 01/26/2020 Essential hypertension 01/26/2020 Gastroesophageal reflux disease without esophagi tis 01/26/2020 Obstructive sleep apnea 01/26/2020 Pain in both feet 10/01/2019 Plantar fasciitis 03/12/2019 Acute otitis media, unspecified otitis media typ e 03/02/2019 Chronic left shoulder pain 06/16/2018 Restless leg 06/16/2018 ADHD 06/16/2018 Morbid obesity 06/16/2018 Taylor's neuroma of left foot 05/20/2018 Stress fracture of metatarsa l bone of left foot, initial encounter 05/19/2018 Low back pain 01/29/2018 Pes equinus, acquired 11/11/2017 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 06/24/2017 Migraine headache 10/14/2014 Iron deficiency anemia 05/19/2014 Vitamin B12 deficiency 05/13/2014 Bipolar 1 disorder ([facility]) 04/05/2014 Pain in left knee 09/10/2013 Resolved Problems Problem Noted Date Diagnosed Date Resolved Date Foot pain 06/16/2018 03/20/2019 Need for influenza vaccination 05/14/2018 03/31/2020 Encounter for preventive health examination 09/23/2012 03/31/2020 Immunizations Name Administration Dates Next Due Fluarix 03/29/2014 Fluzone 6 Months+ Quad (0.5 mL Prefilled Syringe ) 06/04/2019 Influenza (Generic) 05/14/2018,03/29/2014 Influenza Adult (Generic) 06/04/2019,05/14/2018 Pneumococcal (Pneumovax 23) 05/07/2014 Family History Medical History Relation Comments Diabetes Brother Liver Disease Brother Diabetes Father Diabetes Mother Liver Disease Mother Relation Status Comments Brother Alive Father Alive Mother Alive Sister Alive Social History Tobacco Use Types Packs/Day [...] Sex Assigned at Female 07/22/2018 9:07 AM CUSTODY OFFICER Legal Sex Female 7:37 PM CDT Gender Identity Female 07/22/2018 9:07 AM CUSTODY OFFICER Sexual Orientation Lesbian or Hutchison 03/23/2019 2: 09 PM CDT Last Filed Vital Signs Vital Sign Reading Time Taken Comments Blood Pressure 116/76 04/13/2020 2:55 PM CDT Pulse 86 04/13/2020 2:55 PM CDT Temperature 37.3 C (99.2 F) 04/13/2020 2:55 PM CDT Respiratory Rate 20 04/13/2020 2:55 PM CDT Oxygen Saturation 98% 04/13/2020 2:55 PM CDT Inhaled Oxygen Concentration - - Weight 138.3 kg (305 lb) 04/13/2020 2:55 PM CDT Height 156.2 cm (5' 1.5 ) 04/13/2020 2:55 PM CDT Body Mass Index 56.7 04/13/2020 2:55 PM CDT Plan of Treatment Health Maintenance Due Date Last Done Comments Cervical Cancer Screening Pap Smear (Age 30 to 64) Every 3 Years 1986 Annual Physical 1989 Hepatitis C 2004 DTaP, Tdap and Td Vaccines (1 - Tdap) 2005 Hepatitis B Vaccines (1 of 3 - 19+ 3-dose series) 2005 Cervical Cancer Screening Pap with HPV Testing (Age 30 to 64) Every 5 Years 2016 Cervical Cancer Screening with HPV 2016 COVID-19 Vaccine (2023- season) 2024 Influenza Adult (#1) 2024 06/04/2019, 06/04/2019, 05/14/2018, Additional history exists Pneumococcal Vaccine: Pediatrics (0 to 5 Years) and At-Risk Patients (6 to 64 Years) Aged Out 05/07/2014 No longer eligible based on patient's age to complete this topic HPV Vaccines Aged Out No longer eligi ble based on patient's age to complete this topic Meningococcal B Vaccine Aged Out No l onger eligible based on patient's age to complete this topic Meningococcal Vaccine Aged Out No malcolm akosua eligible based on patient's age to complete this topic RSV Immunizations Under 20 Months Aged Out No longer eligible based on patient's age to complete this topic Additional Health Concerns Infection Onset Date Last Indicated C. difficile 02/28/2017 02/28/2017 Insurance Advance Directives * Full Code (Latest Code Status on File) Date Activated Date Inactivated Comments 03/23/2019 9:13 AM 03/23/2019 1:01 PM Care Teams Vault Cashier Relationship Specialty Start Date End Date Helga Wilks PA-C [address] [address] PCP - General PHYSICIAN EVENT SECURITY OFFICER 03/10/23
--- OUTSIDE RECORDS SUMMARY | 2024-10-09 08:24 | XMS_ITS | Encounter Summary ---
Author Organization [facility] Address [facility] [place] [address] Care Team Providers Care Cleat Layer Name Role Phone Kaila Hernandez Primary Care Provider [phone] Helga Wilks PA-C Primary Care Provider [phone] Reason for Referral * Surgical (Routine) - Closed Specialty Diagnoses / Procedures Referred By Landen kemp Referred To Contact Diagnoses Tarsal tunnel syndrome, left lower limb [id number]----[id number] WAS CANCELED Procedures Case request operating room: RELEASE TARSAL TUNNEL ([id number]) SURGERY WAS CANCELED. PT. COULD NOT GET SURGICAL CLEARANCE Jose Ramsey DPM Phone: tel: fax: Jose Ramsey DPM Phone: tel: fax: Referral ID Status Reason Start Date Expiration Date Visits Re quested Visits Authorized [id number] Closed 02/01/2020 03/03/2021 1 1 Encounter Details Date Type Department Care Team (Late st Contact Info) Description 02/01/2020 Prep for Procedure [facility] [address] [place] [address] Jose Ramsey DPM [address] [place] [address] Social History Tobacco Use Types Packs/Day Years [...] Sex Assigned at Female 07/22/2018 9:07 AM NATURAL SCIENCES MANAGER Legal Sex Female 7:37 PM CDT Gender Identity Female 07/22/2018 9:07 AM NATURAL SCIENCES MANAGER Sexual Orientation Lesbian or Hutchison 03/23/2019 2: 09 PM CDT COVID-19 Exposure Response Date Recorded In the last month, have you been in contact with someone who was confirmed or suspected to have Coronavirus / COVID-19? No / Unsure 02/02/2020 3:54 PM CDT documented as of this encounter Plan of Treatment Not on file documented as of this encounter Visit Diagnoses Diagnosis Prophylactic antibiotic- Primary Encounter for long-term (current) use of antibiotics documented in this encounter Additional Health Concerns Infection Onset Date Last Indicated Resolved Time C. difficile 02/28/2017 02/28/2017 documented as of this encounter Care Teams Cleat Layer Relationship Specialty Start Date End Date Kaila Hernandez APNP [phone] [address] PCP - General Nurse Practitioner Family 07/05/1902/19 Helga Wilks PA-C [address] [address] PCP - General PHYSICIAN ACCOUNT ADJUSTER 03/10/23 documented as of this encounter
--- OUTSIDE RECORDS SUMMARY | 2024-10-09 08:24 | XMS_ITS | Patient Health Record ---
Author Organization [facility] Address [address] [place] [address] Care Team Providers Care Director Workers Compensation Name Role Phone Lucretia Lemus Primary Care Provider Allergies Allergen (clinical drug ingredient) Drug/Non Drug Allergy documented on EMR Reaction Allergy Type Onset Date Status naproxen Naproxen Hives Drug Allergy Active Reason For Referral No Information Medications Medication SIG (Take, Route, Frequency, Duration) [...] mg script take with food 09/30/2024 Active Lisinopril 5 MG 1 tablet Orally Once a day for 30 day(s) Active B12 Active hydrOXYzine Pamoate 25 MG TAKE 1 CAPSULE BY MOUTH TWICE A DAY PRN for 30 days Active Prazosin HCl 1 MG TAKE 1 CAPSULE AT BE DTIME ORALLY ONCE A DAY WITH THE 2 MG DOSE FOR A TOTAL OF 3 MG for 90 Active Lurasidone HCl 120 MG 1 tablet in the ev ening with food Orally Once a day for 30 days Active hydrOXYzine Pamoate 25 MG TAKE 1 CAPSULE BY MOUTH TWICE A DAY PRN for 30 days Active traZODone HCl 100 MG 2.5 tablets at bedt annabelle Orally Once a day for 30 days Active Prazosin HCl 2 MG TAKE 2 CAPSULES BY M OUTH ONCE DAILY AT BEDTIME for 30 days Active Social History Tobacco Use: Social History Observation Description Date Details (start date - stop date) Never Smoker NA - NA Sex Assigned At : Social History Observation Description Sex Assigned At Female Dont use, Tobacco Use/Smoking Question Answer Notes Are you a nonsmoker Tobacco Control (Standard) Question Answer Notes Tobacco use: Nonsmoker Problems Problem Type SNOMED Code ICD Code Onset Dates Problem Status W/U Status Risk Notes Problem Schizoaffective disorder, bipolar type (98324976) Schizoaffective disorder, bipolar type (F25.0) Active confirmed Problem Mood disorder (15515528) Mood disorder (F39) Active confirmed Problem Posttraumatic stress disorder (04601825) PTSD (post-traumatic stress disorder) (F43.10) Active confirmed Problem Social anxiety disorder (09169673) Social anxiety disorder (F40.10) Active confirmed Problem Generalized anxiety disorder (01080178) PEEWEE (generalized anxiety disorder) (F41.1) 022 Active confirmed initial PEEWEE-7 21 Problem History of psychiatric disorder (747193472) History of bipolar disorder (Z86.59) Active confirmed Problem History of psychiatric disorder (004044407) History of ADHD (Z86.59) Active confirmed Problem Schizoaffective disorder (32323831) Schizoaffective disorder, bipolar type with good prognostic features (F25.0) Active confirmed Problem Social phobia (62970647) 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) Active confirmed Problem History of psychiatric disorder (727300478) History of borderline personality disorder (Z86.59) Active confirmed Problem Complex posttraumatic stress disorder (350532477) Complex posttraumatic stress disorder (F43.10) Active confirmed Vital Signs Heart Rate 71 /min 08/16/2024 Temperature 97.7 degrees Fahrenheit 11/03/2023 Respiratory Rate 16 /min 08/16/2024 Blood pressure diastolic 80 mm Hg 08/16/2024 Oximetry 98 % 08/16/2024 Height 61 in 08/16/2024 Blood pressure systolic 116 mm Hg 08/16/2024 Weight 251.4 lbs 08/16/2024 BMI 47.5 kg/m2 08/16/2024 Encounters Encounter Location Date Provider Diagnosis [address] [place] [address] 12/12/2023 Lucretia Lemus [address] [place] [address] 11/03/2023 Lucretia Lemus Nutritional counseli ng Z71.3 ; Social anxiety disorder of childhood F40.10 ; Schizoaffective disorder, bipolar type with good prognostic features F25.0 ; Complex posttraumatic stress disorder F43.10 and History of ADHD Z86.[address] [address] 12/22/2023 Lucretia Lemus Nutritional counseli ng Z71.3 ; Schizoaffective disorder, bipolar type with good prognostic features F25.0 ; Complex posttraumatic stress disorder F43.10 ; History of ADHD Z86.59 and Social anxiety disorder of childhood F40.[address] [address] 04/05/2024 Lucretia Lemus Schizoaffective disorder, bipolar type with good prognostic features F25.0 ; Complex posttraumatic stress disorder F43.10 ; History of ADHD Z86.59 ; Social anxiety disorder of childhood F40.10 and Nutritional counseling Z71.[address] [address] 05/17/2024 Lucretia Lemus Schizoaffective disorder, bipolar type with good prognostic features F25.0 ; Complex posttraumatic stress disorder F43.10 ; Social anxiety disorder of childhood F40.10 ; History of ADHD Z86.59 ; Nutritional counseling Z71.3 and Medication monitoring encounter Z51.[address] [address] 08/16/2024 Lucretia Lemus Nutritional counseli ng Z71.3 ; Schizoaffective disorder, bipolar type with good prognostic features F25.0 ; Complex posttraumatic stress disorder F43.10 ; Social anxiety disorder of childhood F40.10 ; History of ADHD Z86.59 and Medication monitoring encounter Z51.[address] [address] 09/30/2024 Lucretia Lemus Nutritional counseli ng Z71.3 ; Schizoaffective disorder, bipolar type with good prognostic features F25.0 ; Complex posttraumatic stress disorder F43.10 ; Social anxiety disorder of childhood F40.10 ; History of ADHD Z86.59 and Medication monitoring encounter Z51.81 Assessments Encounter Date Diagnosis (ICD Code) Assessment Notes Treatment Notes Treatment Clinical Notes Section Notes 09/30/2024 Nutritional counseling (ICD-10 - Z71.3) 04/05/2024 Schizoaffective disorder, bipolar type with good prognostic features (ICD-10 - F25.0) Latuda increased to 100mg. 04/05/2024 Complex posttraumatic stress disorder (ICD-10 - F43.10) 11/03/2023 Nutritional counseling (ICD-10 - Z71.3) 08/16/2024 Nutritional counseling (ICD-10 - Z71.3) 05/17/2024 Schizoaffective disorder, bipolar type with good prognostic features (ICD-10 - F25.0) Latuda increased to 100mg. 05/17/2024 Complex posttraumatic stress disorder (ICD-10 - F43.10) 12/22/2023 Schizoaffective disorder, bipolar type with good prognostic features (ICD-10 - F25.0) 12/22/2023 Nutritional counseling (ICD-10 - Z71.3) 12/22/2023 Complex posttraumatic stress disorder (ICD-10 - F43.10) 05/17/2024 Social anxiety disorder of childhood (ICD-10 - F40.10) PDMP without concerns. 08/16/2024 Schizoaffective disorder, bipolar type with good prognostic features (ICD-10 - F25.0) Latuda increased to 100mg. 11/03/2023 Social anxiety disorder of childhood (ICD-10 - F40.10) PDMP without concerns. 04/05/2024 History of ADHD (ICD-10 - Z86.59) Encouraged therapy 09/30/2024 Schizoaffective disorder, bipolar type with good prognostic features (ICD-10 - F25.0) Latuda increased to 120 x 1 month then client ran out of meds x 4.5 days, weaning back up, discussed r/b/se, f/u in 4 weeks. 04/05/2024 Social anxiety disorder of childhood (ICD-10 - F40.10) PDMP without concerns. 09/30/2024 Complex posttraumatic stress disorder (ICD-10 - F43.10) 11/03/2023 Schizoaffective disorder, bipolar type with good prognostic features (ICD-10 - F25.0) 08/16/2024 Complex posttraumatic stress disorder (ICD-10 - F43.10) 05/17/2024 History of ADHD (ICD-10 - Z86.59) Encouraged therapy 12/22/2023 History of ADHD (ICD-10 - Z86.59) Encouraged therapy 12/22/2023 Social anxiety disorder of childhood (ICD-10 - F40.10) PDMP without concerns. 05/17/2024 Nutritional counseling (ICD-10 - Z71.3) 08/16/2024 Social anxiety disorder of childhood (ICD-10 - F40.10) PDMP without concerns. 11/03/2023 Complex posttraumatic stress disorder (ICD-10 - F43.10) 04/05/2024 Nutritional counseling (ICD-10 - Z71.3) 09/30/2024 Social anxiety disorder of childhood (ICD-10 - F40.10) PDMP without concerns. 09/30/2024 History of ADHD (ICD-10 - Z86.59) Encouraged therapy 11/03/2023 History of ADHD (ICD-10 - Z86.59) Encouraged therapy 08/16/2024 History of ADHD (ICD-10 - Z86.59) Encouraged therapy 05/17/2024 Medication monitoring encounter (ICD-10 - Z51.81) 08/16/2024 Medication monitoring encounter (ICD-10 - Z51.81) 09/30/2024 Medication monitoring encounter (ICD-10 - Z51.81) 11/03/2023 Other Changing forms for pending bariatric surgery on 11/17/23. Reasons, potential benefits, potential risks, interactions and [...] of education, treatment plan and follow up. 12/22/2023 Other Reasons, potential benefits, potential risks, interactions [...] May also contact the 24-hour crisis hotline ([facility]), refer to the closest emergency room or [...] of education, treatment plan and follow up. 04/05/2024 Other Reasons, potential benefits, potential risks, interactions [...] May also contact the 24-hour crisis hotline ([facility]), refer to the closest emergency room or [...] of education, treatment plan and follow up. 05/17/2024 Other Reasons, potential benefits, potential risks, interactions [...] May also contact the 24-hour crisis hotline ([facility]), refer to the closest emergency room or [...] of education, treatment plan and follow up. 08/16/2024 Other Reasons, potential benefits, potential risks, interactions [...] May also contact the 24-hour crisis hotline ([facility]), refer to the closest emergency room or [...] of education, treatment plan and follow up. 09/30/2024 Other Reasons, potential benefits, potential risks, [...] AIMS, or vital signs. Plan Of Treatment Future Test Test Name Order Date Hemoglobin A1c* 09/30/2024 TSH* 09/30/2024 CBC With Differential/Platelet* 10/01/19 25 Lipid Panel* 09/30/2024 CMP 14 Comprehensive Metabolic Panel* Insurance Providers Payer Name Payer Address Payer Phone Subscriber Number Group Number Insured Name Patient Relationship to Insured Coverage Start Date Coverage End Date [facility] Attn Claims Department [address] [place] [address] [phone] [id number] Mira Curry Self - patient is the insured 5 MEDICAID [address] [place] [address] [id number] Mira Curry Self - patient is the insured 5 [facility] Attn Claims Department [address] [place] [address] [id number] Mira Curry Self - patient is the insured 2 4 Kaylie Uribe [employer] Attn Claims Department [address] [place] [address] [id number] Mira Curry Self - patient is the insured 3 4 Medical (General) History Surgical History Surgery Date(Month/Year) Ligament repair right foot 2015 Plantar fasciitis left foot 2017 Plantar fasciitis left foot 2018 B/L knee surgeries x's 3 Left foot surgery 03/2022 Left tendon repair 06/2022 gastric bypass 10/2023 Hospitalization History Reason Date(Month/Year)
--- OUTSIDE RECORDS SUMMARY | 2024-10-09 08:24 | XMS_ITS | Encounter Summary ---
Author Organization [facility] Address [address] [place] [address] Care Team Providers Care Proposal Director Name Role Phone Kaila Hernandez Primary Care Provider [phone] Helga Wilks PA-C Primary Care Provider [phone] Encounter Details Date Type Department Care Team (Late st Contact Info) Description 12/22/2019 [employer] Message Enc [facility] Family [facility] Internal [facility] [address] [place] [address] Kaila Hernandez APNP [address] [address] RE: Question Social History Tobacco [...] Sex Assigned at Female 07/22/2018 9:07 AM GLOBAL SALES MANAGER Legal Sex Female 7:37 PM CDT Gender Identity Female 07/22/2018 9:07 AM GLOBAL SALES MANAGER Sexual Orientation Lesbian or Hutchison 03/23/2019 2: 09 PM CDT COVID-19 Exposure Response Date Recorded In the last month, have you been in contact with someone who was confirmed or suspected to have Coronavirus / COVID-19? No / Unsure 12/13/2019 10:15 AM CDT documented as of this encounter Progress Notes * Evelyn Carlos NP - 12/23/2019 12:16 PM CDT Okay, thanks, probably could do VV with Kaila. Thanks. [email or web address] * Kimmie Holm RN - 12/23/2019 10:23 AM CDT Please advise. documented in this encounter Plan of Treatment Not on file documented as of this encounter Visit Diagnoses Not on filedocumented in this encounter Additional Health Concerns Infection Onset Date Last Indicated Resolved Time C. difficile 02/28/2017 02/28/2017 documented as of this encounter Care Teams Proposal Director Relationship Specialty Start Date End Date Kaila Hernandez APNP [address] [address] PCP - General Nurse Practitioner Family 07/05/1902/19 Helga Wilks PA-C [address] [address] PCP - General PHYSICIAN BOOM TRUCK DRIVER 03/10/23 documented as of this encounter
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
[2024-10-09 08:33] VITALS: BP 120/73; PULSE 98; RESP 16; TEMP 36.6; O2SAT 97
--- NOTE | 2024-10-09 08:55 | ED.GENADULT ---
HPI - General Adult General Chief complaint: Upper Respiratory Infection Stated complaint: cold/flu symptoms Source: patient Mode of arrival: ambulatory Limitations: no limitations History of Present Illness HPI narrative: Patient presents for evaluation of sick symptoms for last 4 days. Symptoms include chills, neck pain, right-sided ear pain, cough, sinus congestion and nausea. Denies fever, SOB, vomiting or diarrhea. Her son recently had similar symptoms. She tried taking Coricidin for her symptoms. She does not smoke. Related Data Home Medications ?Medication ?Instructions ?Recorded ?Confirmed ?Last Taken ?Type escitalopram oxalate 20 mg tablet 20 mg PO DAILY 05/10/22 10/14/23 Unknown History prazosin 1 mg capsule 1 mg PO DAILY 05/10/22 10/14/23 Unknown History trazodone 100 mg tablet 100 mg PO HS PRN Sleep 05/10/22 10/14/23 Unknown History losartan 25 mg tablet 25 mg PO DAILY 10/14/23 10/14/23 Unknown History lurasidone 80 mg tablet 80 mg PO DAILY 10/14/23 10/14/23 Unknown History Allergies Allergy/AdvReac Type Severity Reaction Status Date / Time naproxen Allergy Unknown Difficulty Verified 10/14/23 15:26 Breathing Review of Systems Review of Systems: CONSTITUTIONAL: Reports chills. Denies fever EYES: Denies visual changes, redness, or discharge. ENT: Reports sinus congestion and right sided ear pain. Denies rhinorrhea, sore throat, or otalgia. CARDIOVASCULAR: Denies chest pain, palpitations, or edema. RESPIRATORY: Reports cough. Denies dyspnea. GASTROINTESTINAL: Reports nausea. Denies abdominal pain, vomiting, or diarrhea. GENITOURINARY: Denies dysuria or hematuria. SKIN: Denies rash or itching. MUSCULOSKELETAL: Denies back pain, joint pain, or myalgia. NEUROLOGIC: Denies headache, numbness, dizziness, or weakness. PSYCHIATRIC: Denies anxiety or depression. ON LICENSE OF [facility] Past Medical History Medical History Bipolar disorder Arthritis Bilateral knees IBS (irritable bowel syndrome) Migraines Surgical History Surgical History S/P foot surgery, left removal of bone left foot 03/2022 History of orthopedic surgery Left knee x3, right knee x2, ligament repair to right foot Family History Family History Mother Patient's mother is in good health Family history of diabetes mellitus in first degree relative Father Patient's father is in good health Malignant neoplasm of prostate Grandparent Family history of coronary artery disease Diabetes mellitus Other Cerebrovascular accident Family history of arthritis Family history of gout Family history of malignant neoplasm of cervix Family history of malignant neoplasm of male breast Family history of mental disorder Hypertension Social History Social History Smoking status: Former smoker Alcohol intake: never Gender identity (if verbalized by the patient): Female Exam Narrative: GENERAL: Well-appearing, well-nourished, and in no acute distress. HEAD: Normocephalic, atraumatic. EYES: PERRLA and EOMI. ENT: Nares clear, no rhinorrhea or epistaxis. Mucous membranes moist. Oropharynx without tonsillar hypertrophy exudate or other lesions. Bilateral tympanic membranes are erythematous and bulging NECK: Supple. No adenopathy or masses. No carotid bruits or JVD CHEST: Clear to auscultation. No respiratory distress. No wheezes rales or rhonchi HEART: Regular rate and rhythm. No murmur heard. Normal peripheral pulses. ABDOMEN: Soft, nontender, nondistended, normal active bowel sounds. EXTREMITIES: Normal range of motion. No edema. SKIN: Warm, dry, no rash. NEURO: No focal deficits. Alert and oriented x3. PSYCH: Normal mood and affect. Course Course Emergency Course: This is a 38 year female who presented for evaluation sick symptoms. COVID and influenza were negative. She has evidence of otitis media on exam. Will dc with augmentin. Increase hydration. OTC medications for symptom management. Follow up with primary provider. Go to the ER for worsening symptoms. Pt in agreement with plan of care. Level of Care: Express Care Visit Vital Signs Vital signs: Vital Signs Temperature 36.6 C 10/09/24 08:33 Pulse Rate 98 10/09/24 08:33 Respiratory Rate 16 10/09/24 08:33 Blood Pressure 120/73 10/09/24 08:33 Pulse Oximetry 97 10/09/24 08:33 Oxygen Delivery Room Air 10/09/24 08:33 Temperature 36.6 C 10/09/24 08:33 Pulse Rate 98 10/09/24 08:33 Respiratory Rate 16 10/09/24 08:33 Blood Pressure 120/73 10/09/24 08:33 Pulse Oximetry 97 10/09/24 08:33 Oxygen Delivery Room Air 10/09/24 08:33 Medical Decision Making Vital Signs Vital Signs: Vital Signs Temperature 36.6 C 10/09/24 08:33 Pulse Rate 98 10/09/24 08:33 Respiratory Rate 16 10/09/24 08:33 Blood Pressure 120/73 10/09/24 08:33 Pulse Oximetry 97 10/09/24 08:33 Oxygen Delivery Room Air 10/09/24 08:33 Temperature 36.6 C 10/09/24 08:33 Pulse Rate 98 10/09/24 08:33 Respiratory Rate 16 10/09/24 08:33 Blood Pressure 120/73 10/09/24 08:33 Pulse Oximetry 97 10/09/24 08:33 Oxygen Delivery Room Air 10/09/24 08:33 Lab Data Labs: Lab Results 10/09/24 Range/Units 08:42 POC Influenza A Ag Negative (Negative) POC Influenza B Ag Negative (Negative) POC SARS CoV-2 Ag Negative (Negative) Discharge Plan Discharge Clinical Impression: Bilateral otitis media Patient Disposition: Home, Self-Care Condition: Stable Instructions: Antibiotic Form, Ear Infection (ED) Patient Language: Marshallese Prescriptions: New amoxicillin-pot clavulanate 875-125 mg tablet 1 tablet PO Q12H Qty: 20 0RF No Action escitalopram oxalate 20 mg tablet 20 mg PO DAILY prazosin 1 mg capsule 1 mg PO DAILY trazodone 100 mg tablet 100 mg PO HS PRN (Reason: Sleep) losartan 25 mg tablet 25 mg PO DAILY lurasidone 80 mg tablet 80 mg PO DAILY albuterol sulfate 90 mcg/actuation HFA aerosol inhaler 2 puff inhalation QID PRN (Reason: shortness of breath or wheezing) Qty: 1 0RF Follow-up/Referrals: Eric Guevara MD [Physician] - Time of Disposition: 09:02
[2024-10-09 09:03] LABS: EDCOVIDSCREEN Negative (Negative); EDINFLUASCREEN Negative (Negative); EDINFLUBSCREEN Negative (Negative)
== END 2024-10-09 09:06 | disposition home or self-care (01) ==
PROVIDERS: Emergency Provider Nurse Practitioner
DX: H66.93 Otitis media, unspecified, bilateral (principal); Z87.891 Personal history of nicotine dependence; Z20.822 Contact with and (suspected) exposure to COVID-19
CPT/HCPCS: 87426; 87804; 99213; G0463

== ENCOUNTER 2025-03-31 09:23 | Emergency (ER) | payer OTHER, SELFPAY ==
--- NOTE | 2025-03-31 09:24 | ED_ITS ---
HPI - General Adult General Chief complaint: Skin/Abscess/Foreign Body Stated complaint: left hand finger infection Time Seen by Provider: 03/31/25 09:31 Source: patient, RN notes reviewed and old records reviewed Mode of arrival: ambulatory Limitations: no limitations History of Present Illness HPI narrative: 39-year-old female presents to [facility] with complaints of left middle finger redness, tenderness and a small pus pocket forming. States she noticed it about 4 days ago. Has been applying an antifungal cream after ?Dr. Amesing it.Redness is not circumferential. Patient does not bite nails. No recent manicure. Onset (ago): day(s) (4) Related Data Home Medications ?Medication ?Instructions ?Recorded ?Confirmed ?Last Taken ?Type escitalopram oxalate 20 mg tablet 20 mg PO DAILY 05/1010/14/23 Unknown History prazosin 1 mg capsule 1 mg PO DAILY 05/10/2210/13 Unknown History trazodone 100 mg tablet 100 mg PO HS PRN Sleep 05/1010/14/23 Unknown History losartan 25 mg tablet 25 mg PO DAILY 10/14/23/01/11 Unknown History brexpiprazole 1 mg tablet (Rexulti) mg 03/31/25 Unkno wn History clonazepam 0.5 mg tablet mg 03/31/25 Unknown History hydroxyzine pamoate 25 mg capsule mg 03/31/25 Unknown History lisdexamfetamine 70 mg capsule mg 03/31/25 Unknown Hi story (Vyvanse) Allergies Allergy/AdvReac Type Severity Reaction Status Date / Time naproxen Allergy Unknown Difficulty Verified 10/14/23 15:26 Breathing Review of Systems 2 Review of Systems: All systems reviewed & are unremarkable except as noted in HPI and below Constitutional: Constitutional: Reports no additional constitutional complaints Musculoskeletal: Musculoskeletal: Reports no additional musculoskeletal complaints Integumentary/Breasts: Skin/Breast: Reports as per HPI [facility] Past Medical History Medical History Bipolar disorder Arthritis Bilateral knees IBS (irritable bowel syndrome) Migraines Surgical History Surgical History S/P foot surgery, left removal of bone left foot 03/2022 History of orthopedic surgery Left knee x3, right knee x2, ligament repair to right foot Family History Family History Mother Patient's mother is in good health Family history of diabetes mellitus in first degree relative Father Patient's father is in good health Malignant neoplasm of prostate Grandparent Family history of coronary artery disease Diabetes mellitus Other Cerebrovascular accident Family history of arthritis Family history of gout Family history of malignant neoplasm of cervix Family history of malignant neoplasm of male breast Family history of mental disorder Hypertension Social History Social History Smoking status: Former smoker Alcohol intake: never Gender identity (if verbalized by the patient): Female Comments At the time of my signature, I reviewed and agree with the nursing past medical, surgical, social, and family history. There is no relevant family history pertinent to the patient complaint. Exam 2 Const: General: cooperative, healthy appearing, comfortable, no acute distress, well developed, alert and well nourished Nutritional Appearance: w ell nourished Orientation/consciousness: patient oriented x3 Limitations: no limitations HENMT: Head: normal to inspection Eyes: General: appearance normal, both eyes and all related structures A lignment and Position: alignment normal Neck: Neck: normal visual inspection, full ROM, no lymphadenopathy and no meningeal signs Chest: Chest palpation & inspection: normal inspection of the chest Resp: Effort & Inspection: normal respiratory effort and able to speak in complete sentences Cardio: Rate: regular rate Skin: General skin exam: normal color and no rashes or lesions noted Other: Area pink, tender to the radial aspect distal 3rd finger left hand, 0.3 cm yellow discoloration, pustule Neuro: General: patient oriented x3, gait normal, moves all extremities and no meningeal signs Cognition (Neuro): normal cognition Speech: normal speech Gait exam (Neuro): Normal gait present Extrem: General: normal to inspection, full ROM, capillary refill normal and normal gait Left upper extremity: hand normal capillary refill and normal ROM of fingers Hand/finger images: 1. Small pustule, pink surrounding, not circumferential, tender to touch. Increased warmth Psych: Appearance: grossly normal and well kempt Mental Status: mental status grossly normal Speech and movement: Normal speech and movement present and Clear speech present Affect: normal affect Attitude: cooperative Course Course Emergency Course: Finger soaked in saline and Betadine for 15 minutes. Patted dry, used 18 gauge needle. Area opened with use of needle. Culture collected Level of Care: Express Care Visit Vital Signs Vital signs: Vital Signs Temperature 97.6 F 03/31/25 09:26 Pulse Rate 83 03/31/25 09:26 Respiratory Rate 20 03/31/25 09:26 Blood Pressure 144/77 H 03/31/25 09:26 Pulse Oximetry 99 03/31/25 09:26 Oxygen Delivery Room Air 03/31/25 09:26 Temperature 97.6 F 03/31/25 09:26 Pulse Rate 83 03/31/25 09:26 Respiratory Rate 20 03/31/25 09:26 Blood Pressure 144/77 H 03/31/25 09:26 Pulse Oximetry 99 03/31/25 09:26 Oxygen Delivery Room Air 03/31/25 09:26 Reviewed Medical Decision Making MDM Narrative Medical decision making narrative: Patient sitting comfortably in exam room. Nontoxic, vitals stable. Patient in no acute distress Patient presents for and paronychia. Area opened, sent culture Patient being covered with doxycycline. Interaction Bactrim with blood pressure medication Patient appropriate for outpatient treatment with follow-up Discharge instructions reviewed with patient, as well as provided in writing per nursing staff. The instructions also include specific and strict return/GO TO THE ER as well as f/u information. All questions have been answered, and the patient deny any further questions with discharge and discharge plan. Some parts of this dictation were generated by voice recognition software and may contain typographical and/or grammatical inaccuracies. Differential Diagnosis Differential Diagnosis: Cellulitis, paronychia, abscess Medical Records Medical records reviewed: Yes I reviewed the external patient's medical records. Vital Signs Vital Signs: Vital Signs Temperature 97.6 F 03/31/25 09:26 Pulse Rate 83 03/31/25 09:26 Respiratory Rate 20 03/31/25 09:26 Blood Pressure 144/77 H 03/31/25 09:26 Pulse Oximetry 99 03/31/25 09:26 Oxygen Delivery Room Air 03/31/25 09:26 Temperature 97.6 F 03/31/25 09:26 Pulse Rate 83 03/31/25 09:26 Respiratory Rate 20 03/31/25 09:26 Blood Pressure 144/77 H 03/31/25 09:26 Pulse Oximetry 99 03/31/25 09:26 Oxygen Delivery Room Air 03/31/25 09:26 Reviewed Lab Data Lab results reviewed: Yes I reviewed the patient's lab results. Labs: Reviewed Critical Care Time Critical Care Time Critical Care Time: No Discharge Plan Discharge Clinical Impression: Paronychia Patient Disposition: Home Condition: Stable Instructions: Paronychia (ED) Additional Instructions: DO NOT pick at the area. This will only make the area worse and drive infection deeper. Shower and wash with soapy water. Keep area clean and dry. Soak twice a day in warm soapy water and Epson salts. Soak for about 15-20 minutes Take all the antibiotics as prescribed. Take keep the dressing in place while it is draining or if you are in public. Try leaving open to air at night when you are at home Follow up with PCP in 5-7 days Go to the ER for worsened condition or Symptoms Patient Language: Vincentian Prescriptions: New doxycycline monohydrate 100 mg tablet 100 mg PO BID Qty: 14 0RF No Action clonazepam 0.5 mg tablet hydroxyzine pamoate 25 mg capsule lisdexamfetamine [Vyvanse] 70 mg capsule Rexulti 1 mg tablet escitalopram oxalate 20 mg tablet 20 mg PO DAILY prazosin 1 mg capsule 1 mg PO DAILY trazodone 100 mg tablet 100 mg PO HS PRN (Reason: Sleep) losartan 25 mg tablet 25 mg PO DAILY albuterol sulfate 90 mcg/actuation HFA aerosol inhaler 2 puff inhalation QID PRN (Reason: shortness of breath or wheezing) Qty: 1 0RF Follow-up/Referrals: Beverly,MD Faye [Primary Care Provider, Unknown] - 1 Week Clinical Impression: Paronychia Time of Disposition: 09:50
[2025-03-31 09:26] VITALS: BP 144/77; PULSE 83; RESP 20; TEMP 36.4; O2SAT 99
--- NOTE | 2025-03-31 10:01 | PC.NURSE ---
wound opened with needle. Culture obtained and bandaide applied.
--- OUTSIDE RECORDS SUMMARY | 2025-03-31 10:05 | XMS_ITS | Patient Health Record ---
Author Organization [facility] Address [address] [place] [address] Care Team Providers Care Circuit Manager Name Role Phone Lucretia Lemus Primary Care Provider [phone] Allergies Allergen (clinical drug ingredient) Drug/Non Drug Allergy documented on EMR Reaction Allergy Type Onset Date Status lamotrigine lamoTRIgine rash Drug Allergy Act samantha naproxen Naproxen Hives Drug Allergy Active Reason For Referral No Information Medications Medication SIG (Take, Route, Frequency, Duration) Notes Start Date End Date Status Prazosin HCl 2 MG TAKE 2 CAPSULES BY M OUTH ONCE DAILY AT BEDTIME; Duration: 30 days Active hydrOXYzine Pamoate 25 MG TAKE 1 CAPSULE BY MOUTH TWICE A DAY PRN; Duration: 30 days Active Escitalopram Oxalate 20 MG 1 tablet Oral ly Once a day; Duration: 30 days Active traZODone HCl 100 MG 2.5 tablets at bedt annabelle Orally Once a day; Duration: 30 days Active Rexulti 2 MG 1 tablet Orally Once a day; Duration: 30 days Active clonazePAM 0.5 MG 1 tablet Orally Once a day; Duration: 20 days 03/28/2025 Active B12 Active Lisinopril 5 MG 1 tablet Orally Once a day; Duration: 30 day(s) Active Social History Tobacco Use: Social History Observation Description Date Details (start date - stop date) Never Smoker NA - NA Sex Assigned At : Social History Observation Description Sex Assigned At Female Dont use, Tobacco Use/Smoking Question Answer Notes Are you a nonsmoker Tobacco Control (Standard) Question Answer Notes Additional Findings: Tobacco non-user Current no nsmoker Tobacco use: Nonsmoker Problems Problem Type SNOMED Code ICD Code Onset Dates Problem Status W/U Status Risk Notes Problem Schizoaffective disorder, bipolar type (32425362) Schizoaffective disorder, bipolar type (F25.0) Active confirmed Problem Mood disorder (24737450) Mood disorder (F39) Active confirmed Problem Posttraumatic stress disorder (62582019) PTSD (post-traumatic stress disorder) (F43.10) Active confirmed Problem Social anxiety disorder (03417860) Social anxiety disorder (F40.10) Active confirmed Problem Generalized anxiety disorder (16758040) PEEWEE (generalized anxiety disorder) (F41.1) 022 Active confirmed initial PEEWEE-7 21 Problem History of psychiatric disorder (654126986) History of bipolar disorder (Z86.59) Active confirmed Problem History of psychiatric disorder (839525789) History of ADHD (Z86.59) Active confirmed Problem Schizoaffective disorder (79044900) Schizoaffective disorder, bipolar type with good prognostic features (F25.0) Active confirmed Problem Social phobia (51903397) 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) Active confirmed Problem History of psychiatric disorder (223844719) History of borderline personality disorder (Z86.59) Active confirmed Problem Complex posttraumatic stress disorder (319997181) Complex posttraumatic stress disorder (F43.10) Active confirmed Vital Signs Heart Rate 71 /min 08/16/2024 Respiratory Rate 16 /min 08/16/2024 Oximetry 98 % 08/16/2024 Blood pressure diastolic 80 mm Hg 08/16/2024 Height 61 in 08/16/2024 Blood pressure systolic 116 mm Hg 08/16/2024 Weight 251.4 lbs 08/16/2024 BMI 47.5 kg/m2 08/16/2024 Encounters Encounter Location Date Provider Diagnosis [address] [place] [address] 04/05/2024 Lucretia Lemus Schizoaffective disorder, bipolar type with good prognostic features F25.0 ; Complex posttraumatic stress disorder F43.10 ; History of ADHD Z86.59 ; Social anxiety disorder of childhood F40.10 and Nutritional counseling Z71.[address] [place] [address] 05/17/2024 Lucretia Lemus Schizoaffective disorder, bipolar type with good prognostic features F25.0 ; Complex posttraumatic stress disorder F43.10 ; Social anxiety disorder of childhood F40.10 ; History of ADHD Z86.59 ; Nutritional counseling Z71.3 and Medication monitoring encounter Z51.[address] [address] 08/16/2024 Lucretia Lemus Nutritional counseli ng Z71.3 ; Schizoaffective disorder, bipolar type with good prognostic features F25.0 ; Complex posttraumatic stress disorder F43.10 ; Social anxiety disorder of childhood F40.10 ; History of ADHD Z86.59 and Medication monitoring encounter Z51.[address] [address] 09/30/2024 Lucretia Lemus Nutritional counseli ng Z71.3 ; Schizoaffective disorder, bipolar type with good prognostic features F25.0 ; Complex posttraumatic stress disorder F43.10 ; Social anxiety disorder of childhood F40.10 ; History of ADHD Z86.59 and Medication monitoring encounter Z51.81 [address] [place] [address] 11/02/2024 Lucretia Lemus Nutritional counseli ng Z71.3 ; Schizoaffective disorder, bipolar type with good prognostic features F25.0 ; Complex posttraumatic stress disorder F43.10 ; Social anxiety disorder of childhood F40.10 ; History of ADHD Z86.59 and Medication monitoring encounter Z51.[address] [address] 12/08/2024 Lucretia Lemus Nutritional counseli ng Z71.3 ; Schizoaffective disorder, bipolar type with good prognostic features F25.0 ; Complex posttraumatic stress disorder F43.10 ; Social anxiety disorder of childhood F40.10 ; History of ADHD Z86.59 and Medication monitoring encounter Z51.[address] [address] 01/13/2025 Lucretia Lemus Nutritional counseli ng Z71.3 ; Schizoaffective disorder, bipolar type with good prognostic features F25.0 ; Complex posttraumatic stress disorder F43.10 ; Social anxiety disorder of childhood F40.10 ; History of ADHD Z86.59 and Medication monitoring encounter Z51.[address] [address] 02/16/2025 Lucretia Lemus Nutritional counseli ng Z71.3 ; Schizoaffective disorder, bipolar type with good prognostic features F25.0 ; Complex posttraumatic stress disorder F43.10 ; Social anxiety disorder of childhood F40.10 ; History of ADHD Z86.59 and Medication monitoring encounter Z51.[address] [address] 03/28/2025 Lucretia Lemus Nutritional counseli ng Z71.3 ; Schizoaffective disorder, bipolar type with good prognostic features F25.0 ; Complex posttraumatic stress disorder F43.10 ; Social anxiety disorder of childhood F40.10 ; History of ADHD Z86.59 and Medication monitoring encounter Z51.81 [facility] [address] [place] [address] 10/28/2024 Lucretia Lemus [address] [address] 11/30/2024 Lucretia Lemus Schizoaffective disorder, bipolar type with good prognostic features F25.[address] [address] 03/23/2025 Lucretia Lemus Schizoaffective disorder, bipolar type with good prognostic features F25.[address] [address] 10/27/2024 Lucretia Lemus Schizoaffective disorder, bipolar type with good prognostic features F25.[address] [address] 01/07/2025 Lucretia Lemus Schizoaffective disorder, bipolar type with good prognostic features F25.0 and Complex posttraumatic stress disorder F43.10 Assessments Encounter Date Diagnosis (ICD Code) Assessment Notes Treatment Notes Treatment Clinical Notes Section Notes 04/05/2024 Schizoaffective disorder, bipolar type with good prognostic features (ICD-10 - F25.0) Latuda increased to 100mg. 04/05/2024 Complex posttraumatic stress disorder (ICD-10 - F43.10) 05/17/2024 Schizoaffective disorder, bipolar type with good prognostic features (ICD-10 - F25.0) Latuda increased to 100mg. 05/17/2024 Complex posttraumatic stress disorder (ICD-10 - F43.10) 08/16/2024 Nutritional counseling (ICD-10 - Z71.3) 09/30/2024 Nutritional counseling (ICD-10 - Z71.3) 10/27/2024 Schizoaffective disorder, bipolar type with good prognostic features (ICD-10 - F25.0) 11/02/2024 Nutritional counseling (ICD-10 - Z71.3) 11/30/2024 Schizoaffective disorder, bipolar type with good prognostic features (ICD-10 - F25.0) 12/08/2024 Nutritional counseling (ICD-10 - Z71.3) 01/07/2025 Schizoaffective disorder, bipolar type with good prognostic features (ICD-10 - F25.0) 01/13/2025 Nutritional counseling (ICD-10 - Z71.3) 02/16/2025 Nutritional counseling (ICD-10 - Z71.3) 03/23/2025 Schizoaffective disorder, bipolar type with good prognostic features (ICD-10 - F25.0) 03/28/2025 Nutritional counseling (ICD-10 - Z71.3) 03/28/2025 Schizoaffective disorder, bipolar type with good prognostic features (ICD-10 - F25.0) Rexulti. Take as prescribed. Reviewed purpose (mood stability), benefits, and risks - low blood pressure, metabolic syndrome with high cholesterol or high blood sugars, change in cardiac conduction, nausea, vomiting, temporary or permanent movement disorders, and akathisia. For females: explained that no medication can be guaranteed to be 100% safe for baby or mother. Past meds: Abilify, Vraylar (ineffective at high doses), Seroquel (increased anger), Olanzapine (weight gain), Lamotrigine (rash), Caplyta (ineffective at 42mg) Latuda (stopped working/ineffective at 160mg). 02/16/2025 Schizoaffective disorder, bipolar type with good prognostic features (ICD-10 - F25.0) Start Rexulti. Take as prescribed. Reviewed purpose (mood stability), benefits, and risks - low blood pressure, metabolic syndrome with high cholesterol or high blood sugars, change in cardiac conduction, nausea, vomiting, temporary or permanent movement disorders, and akathisia. For females: explained that no medication can be guaranteed to be 100% safe for baby or mother. Past meds: Abilify, Vraylar (ineffective at high doses), Seroquel (increased anger), Olanzapine (weight gain), Lamotrigine (rash), Caplyta (ineffective at 42mg) Latuda (stopped working/ineffective at 160mg). 01/07/2025 Complex posttraumatic stress disorder (ICD-10 - F43.10) 01/13/2025 Schizoaffective disorder, bipolar type with good prognostic features (ICD-10 - F25.0) Latuda at max recommended, discussed this and that may have to change agents- client wanting to give it another month due to environmental stressors/lack of sleep due to environment, mutual agreement with understanding client will call with any issues/concerns/worse jose of symtoms before next appt., discussed r/b/se for olfactory hallucination and anger/irritability. 12/08/2024 Schizoaffective disorder, bipolar type with good prognostic features (ICD-10 - F25.0) Latuda increased further to 160mg, discussed r/b/se for olfactory hallucination and anger/irritability. 11/02/2024 Schizoaffective disorder, bipolar type with good prognostic features (ICD-10 - F25.0) Latuda increased further to 140mg, discussed r/b/se. 09/30/2024 Schizoaffective disorder, bipolar type with good prognostic features (ICD-10 - F25.0) Latuda increased to 120 x 1 month then client ran out of meds x 4.5 days, weaning back up, discussed r/b/se, f/u in 4 weeks. 08/16/2024 Schizoaffective disorder, bipolar type with good prognostic features (ICD-10 - F25.0) Latuda increased to 100mg. 05/17/2024 Social anxiety disorder of childhood (ICD-10 - F40.10) PDMP without concerns. 04/05/2024 History of ADHD (ICD-10 - Z86.59) Encouraged therapy 04/05/2024 Social anxiety disorder of childhood (ICD-10 - F40.10) PDMP without concerns. 05/17/2024 History of ADHD (ICD-10 - Z86.59) Encouraged therapy 08/16/2024 Complex posttraumatic stress disorder (ICD-10 - F43.10) 09/30/2024 Complex posttraumatic stress disorder (ICD-10 - F43.10) 11/02/2024 Complex posttraumatic stress disorder (ICD-10 - F43.10) 12/08/2024 Complex posttraumatic stress disorder (ICD-10 - F43.10) 02/16/2025 Complex posttraumatic stress disorder (ICD-10 - F43.10) PDMP without concerns. 01/13/2025 Complex posttraumatic stress disorder (ICD-10 - F43.10) PDMP without concerns. 03/28/2025 Complex posttraumatic stress disorder (ICD-10 - F43.10) PDMP without concerns. 03/28/2025 Social anxiety disorder of childhood (ICD-10 - F40.10) 02/16/2025 Social anxiety disorder of childhood (ICD-10 - F40.10) 12/08/2024 Social anxiety disorder of childhood (ICD-10 - F40.10) PDMP without concerns. 01/13/2025 Social anxiety disorder of childhood (ICD-10 - F40.10) 11/02/2024 Social anxiety disorder of childhood (ICD-10 - F40.10) PDMP without concerns. 09/30/2024 Social anxiety disorder of childhood (ICD-10 - F40.10) PDMP without concerns. 08/16/2024 Social anxiety disorder of childhood (ICD-10 - F40.10) PDMP without concerns. 05/17/2024 Nutritional counseling (ICD-10 - Z71.3) 04/05/2024 Nutritional counseling (ICD-10 - Z71.3) 08/16/2024 History of ADHD (ICD-10 - Z86.59) Encouraged therapy 09/30/2024 History of ADHD (ICD-10 - Z86.59) Encouraged therapy 11/02/2024 History of ADHD (ICD-10 - Z86.59) Encouraged therapy 12/08/2024 History of ADHD (ICD-10 - Z86.59) Encouraged therapy 01/13/2025 History of ADHD (ICD-10 - Z86.59) Encouraged therapy 02/16/2025 History of ADHD (ICD-10 - Z86.59) Encouraged therapy 03/28/2025 History of ADHD (ICD-10 - Z86.59) Encouraged therapy 03/28/2025 Medication monitoring encounter (ICD-10 - Z51.81) 02/16/2025 Medication monitoring encounter (ICD-10 - Z51.81) 01/13/2025 Medication monitoring encounter (ICD-10 - Z51.81) 12/08/2024 Medication monitoring encounter (ICD-10 - Z51.81) 11/02/2024 Medication monitoring encounter (ICD-10 - Z51.81) 05/17/2024 Medication monitoring encounter (ICD-10 - Z51.81) 08/16/2024 Medication monitoring encounter (ICD-10 - Z51.81) 09/30/2024 Medication monitoring encounter (ICD-10 - Z51.81) 04/05/2024 Other Reasons, potential benefits, potential risks, [...] May also contact the 24-hour crisis hotline ([facility]), refer to the closest emergency room [...] May also contact the 24-hour crisis hotline ([facility]), refer to the closest emergency room [...] May also contact the 24-hour crisis hotline ([facility]), refer to the closest emergency room [...] May also contact the 24-hour crisis hotline ([facility]), refer to the closest emergency room [...] assess appearance, affect, AIMS, or vital signs. 11/02/2024 Other Reasons, potential benefits, potential risks, interactions [...] May also contact the 24-hour crisis hotline ([facility]), refer to the closest emergency room [...] assess appearance, affect, AIMS, or vital signs. 12/08/2024 Other Reasons, potential benefits, potential risks, interactions [...] May also contact the 24-hour crisis hotline ([facility]), refer to the closest emergency room [...] assess appearance, affect, AIMS, or vital signs. 01/13/2025 Other Reasons, potential benefits, potential risks, interactions [...] May also contact the 24-hour crisis hotline ([facility]), refer to the closest emergency room [...] assess appearance, affect, AIMS, or vital signs. 02/16/2025 Other Reasons, potential benefits, potential risks, interactions [...] May also contact the 24-hour crisis hotline ([facility]), refer to the closest emergency room [...] assess appearance, affect, AIMS, or vital signs. 03/28/2025 Other Reasons, potential benefits, potential risks, interactions [...] May also contact the 24-hour crisis hotline ([facility]), refer to the closest emergency room [...] AIMS, or vital signs. Plan Of Treatment No Information Insurance Providers Payer Name Payer Address Payer Phone Subscriber Number Group Number Insured Name Patient Relationship to Insured Coverage Start Date Coverage End Date [facility] Attn Claims Department [address] [place] [phone] [id number] Mira Curry Self - patient is the insured 5 MEDICAID [address] [place] [address] [id number] Samantha Curryasha Self - patient is the insured 5 5 [facility] Claims Department [address] [place] [phone] [id number] Sandi Currya Self - patient is the insured 2 4 [facility] Telehealth Attn Claims Department [address] [place] [phone] [id number] Sandi Currya Self - patient is the insured 3 4 [facility] Att[facility] Claims Department [address] [place] [phone] [id number] Samantha Curryasha Self - patient is the insured 5 Medical (General) History Surgical History Surgery Date(Month/Year) Ligament repair right foot 2015 Plantar fasciitis left foot 2017 Plantar fasciitis left foot 2018 B/L knee surgeries x's 3 Left foot surgery 03/2022 Left tendon repair 06/2022 gastric bypass 10/2023 Hospitalization History Reason Date(Month/Year)
--- OUTSIDE RECORDS SUMMARY | 2025-03-31 10:05 | XMS_ITS | Encounter Summary ---
Author Organization [facility] Address [address] [place] [address] Phone Care Team Providers Care Edi Consultant Name Role Phone Faye Paul MD Primary Care Provide r Encounter Details Date Type Department Care Team (Latest Contact Info) Description 07/09/2022 [facility] [address] [place] [phone] Sabrina Ferreira, DPM [address] [place] [address] Pre-op testing (Primary Dx) Social History Tobacco [...] Coronavirus/COVID-19? No / Unsure 07/10/2022 12:27 PM ELECTRICIAN APPRENTICE documented as of this encounter Plan of [...] documented as of this encounter Care Teams Edi Consultant Relationship Specialty Start Date End Date Faye Paul MD [address] [facility] [address] [place] [id number] PCP - General Family Medicine 04/17/22 documented as of this encounter
--- OUTSIDE RECORDS SUMMARY | 2025-03-31 10:05 | XMS_ITS | Clinical Summary ---
Author Organization [facility] Address [address] [place] [address] Phone Care Team Providers Care Railway Traction Line Worker Name Role Phone Faye Paul MD Primary [...] Active Active Problems No known active problems Family History Medical History Relation Name Comments [...] Comments Blood Pressure 132/73 07/29/2024 8:30 PM YARDER BOSS Pulse 71 07/29/2024 8:30 PM YARDER BOSS Temperature 36.4 C (97.5 F) 07/29/2024 8:30 PM YARDER BOSS Respiratory Rate 20 07/29/2024 8:30 PM YARDER BOSS Oxygen Saturation 99% 07/29/2024 8:30 PM YARDER BOSS Inhaled Oxygen Concentration - - Weight 113.4 kg (250 lb) 07/29/2024 8:30 PM YARDER BOSS Height 154.9 cm (5' 1) 07/29/2024 8:30 PM YARDER BOSS Body Mass Index 47.24 07/29/2024 8:30 PM YARDER BOSS Plan of Treatment Health Maintenance Due Date Last Done Comments Hepatitis C Virus (HCV) Screening 1986 TdaP Immunization 1986 Hepatitis B Immunization (1 of 3 - 19+ 3-dose series) 2005 Pap Smear 10/30/2007 Human Papillomavirus (HPV) Immunization (1 - 3-dose SCDM series) 2013 Cervical Cancer Screening (CCS) 2016 HPV/Cotest 2016 Influenza Immunization (#1) 03/21/202505/21, 03/21/2021, 06/04/2019, Additional history exists SARS-COV-2 Immunization ( season) 2025 11/27/2020, 10/30/2020 Respiratory Syncytial Virus (RSV) Immunization (Adult) (1 - 1-dose 75+ series) 2061 Pneumococcal Immunization Combined Aged Out 05/07/2014 No longer eligible based on patient's age to complete this topic Meningococcal Immunization (ACWY) Aged Out No longer eligible based on patient's age to complete this topic Rotavirus Immunization Aged Out No lo nger eligible based on patient's age to complete this topic Medical Devices Implanted Type Area Grease And Tallow Pumper Device Identifier Shelf Expiration Date Model / Serial / Lot Suture [place] Implanted:Qty: 1 on 07/18/2022 by [facility]rina [facility] D[facility] at [facility] Left: Ankle [employer] 07/20/2025 [id number] / [id number] / [id number] Graft Jacket Implanted:Qty: 1 on 07/18/2022 by Sabrina Ferreira DPM at [facility] Left: Ankle [employer] 03/09/2023 [id number] / [id number] / [id number] Insurance [place]ID [place] Member Subscriber Plan / Payer (Ef fective 2024-Present) Name:Raleigh Curry Relation to Subscriber:Self Name:Raleigh Curry Payer ID:[id number] Group ID:Not on file Type:Not on file Address: [address] Care Teams Railway Traction Line Worker Relationship Specialty Start Date End Date Faye Paul MD [address] [facility] [address] [place] [phone] PCP - General Family Medicine 04/17/22
--- OUTSIDE RECORDS SUMMARY | 2025-03-31 10:05 | XMS_ITS | Encounter Summary ---
Author Organization [facility] Address [address] [place] [address] Phone Care Team Providers Care Dry Heat Cabinet Attendant Name Role Phone Ghassan Barbosa MD Primary Care Provider [phone] Faye Paul MD Primary Care Provide r Encounter Details Date Type Department Care Team (Late st Contact Info) Description 04/02/2022 [facility] [address] [place] [id number] Nathaniel Crawley, DO [address] [place] [address] Pre-op testing (Primary Dx) Social History Tobacco [...] & HEMATOCRIT (H&H) (04/17/2022 4:07 PM CDT) [facility] HEMOGLOBIN (HGB) 10.7(L) 12.0 - 15.8 g/dL 04/17/2022 4:42 PM CDT [facility] HEMATOCRIT (HCT) 35.9(L) 36.0 - 47.0 % 04/17/2022 4:42 PM CDT [facility] Blood Venipuncture / Unknown 04/17/2022 4:07 PM CDT 04/17/2022 4:38 PM CDT us Nathaniel Crawley DO HEMATOLOGY ORDERABL ES Final Result [facility] [address] [place] [address] * SARS-COV-2 BY MOLECULAR (04/17/2022 4:05 PM CDT) [facility] SARSCOV2 NOT DETECTED (Referenc e Range for this test is Not Detected) [facility] ID NOW 04/17/2022 4:58 PM CDT [facility] Comment:This test was perfor med by a MOLECULAR, NON-PCR method Other NASAL STRUCTURE / Unknown Non-Phlebotomy Collection / Unknown 04/17/2022 4:05 PM CDT 04/17/2022 4:39 PM CDT Narrative [facility] - 04/17/2022 4:58 PM CDT [...] information for Clinicians can be found at: https://www.fda.gov/media/394554/download Additional information for Patients can be found at: https://www.fda.gov/media/241722/download Nathaniel Crawley DO MICROBIOLOGY - GENE RAL ORDERABLES Final Result [facility] [address] [place] [address] documented in this encounter Visit Diagnoses Diagnosis Pre-op testing- Primary Preoperative examination, unspecified documented in this encounter Additional Health Concerns Infection Onset Date Last Indicated Resolved Time COVID - 19 11/03/2023 11/03/2023 11/03/2023 9:16 PM CDT COVID - 19 Confirmed 11/03/2023 11/03/2023 024 12:16 AM CDT documented as of this encounter Care Teams Dry Heat Cabinet Attendant Relationship Specialty Start Date End Date Ghassan Barbosa MD PCP - General Internal Medicine 11/07/21 04/16/22 Faye Paul MD [address] [place] [address] [place] [address] PCP - General Family Medicine 04/17/22 documented as of this encounter
--- OUTSIDE RECORDS SUMMARY | 2025-03-31 10:05 | XMS_ITS | Encounter Summary ---
Author Organization [facility] Address [address] [place] [address] Phone Care Team Providers Care Aerial Survey Technician Name Role Phone Faye Paul MD Primary [...] Expiration Date Visits Re quested Visits Authorized [id number] Closed 08/09/2022 1 1 T REPRESENTATIVE Encounter Details Date Type Department Care Team (Latest Contact Info) Description 08/09/2022 Transcribe Orders [facility] Ultrasound [address] [place] [id number] Sabrina Ferreira DPM [address] [place] [address] Deep vein thrombosis (DVT) of left lower [...] Coronavirus/COVID-19? No / Unsure 08/09/2022 10:27 AM EVENT REPRESENTATIVE documented as of this encounter Plan of Treatment Not on file documented as of this encounter Results * US LEFT DUPLEX LOWER EXTREMITY VEINS (08/09/2022 11:30 AM EVENT REPRESENTATIVE) Anatomical Region Laterality Modality vascular Left Ultrasound 08/09/2022 11:3 5 AM EVENT REPRESENTATIVE Impressions 08/09/2022 11:37 AM EVENT REPRESENTATIVE IMPRESSION: 1. Thrombosis of the left peroneal calf vein. 2. No femoral-popliteal deep venous thrombosis is seen. Results communicated to the ordering clinician by the performing marketing and development coordinator at approximately 11:20 a.m. on 08/09/2022 Narrative 08/09/2022 11:37 AM EVENT REPRESENTATIVE EXAM DESCRIPTION: US LEFT DUPLEX LOWER EXTREMITY [...] Tyree Clayton M.D. AG: RODDY Report ID: [id number] Reading Location: [id number] Procedure Note Tyree Clayton MD - 08/09/2022 [...] Tyree Clayton M.D. AG: RODDY Report ID: [id number] Reading Location: [id number] IMPRESSION: 1. Thrombosis of the left peroneal calf vein. 2. No femoral-popliteal deep venous thrombosis is seen. Results communicated to the ordering clinician by the performing marketing and development coordinator at approximately 11:20 a.m. on 08/09/2022 Sabrina [...] documented as of this encounter Care Teams Aerial Survey Technician Relationship Specialty Start Date End Date Faye Paul MD [address] [place] [address] [address] PCP - General Family Medicine 04/17/22 documented as of this encounter
--- OUTSIDE RECORDS SUMMARY | 2025-03-31 10:05 | XMS_ITS | Clinical Summary ---
Author Organization [facility] Medical Office Building [address] Address [address] [place] [address] Care Team Providers Care Lab Clerk Name Role Phone Sabrina Ferreira DPM Unavailable [phone] Laina Terrell PT Unavailable Unavailable Kenia Villagomez MD PhD Unavailable Tello Pacheco MD Unavailable [phone] Faye Paul MD Primary Care Provide r Katelyn Denny PT Unavailable Unavailable Allergies Active Allergy Reactions Criticality Noted Date Comments Naltrexone-Bupropion Other (See comments) Low 09/15 Patient states she felt dizzy and shaky on this medication Naproxen Shortness of breath High 10/01/2019 Nsaids (Non-Steroidal Anti-Inflammatory Drug) Other (See comments) 01/27/2025 S/P Bariatric surgery Topiramate Anaphylaxis High 09/08/2024 She states she had trouble breathing and in hospital for this reaction. Was being used for migraine prevention. Venom-Honey Bee Shortness of breath,Nausea And Vomiting High 01/29/2018 Medications hydrOXYzine (VISTARIL) 25 mg capsule Take 1 capsule (25 mg total) by mouth 4 (four) times a day as needed for anxiety 023 Active prazosin (MINIPRESS) 2 mg capsule Take 1 capsule (2 mg total) by mouth nightly as needed (nightmares) 023 Active calcium citrate-vitamin D3 200 mg-6.25 mcg (250 unit) tabletIndications :Hypocalcemia Prevention Take 2 tablets by mouth 3 (three) times a day Start post-surgery 540 tablet 3 024 Active Additional Information Patient taking differently: 1 tabletoral2 times daily, Start post-surgery,Indications: Hypocalcemia Prevention, Prevention of Vitamin D Deficiency, Informant: Self, Reported on 02/14/2025 clonazePAM (KlonoPIN) 0.5 mg disintegrating tablet Take 1 tablet (0.5 mg total) by mouth 3 (three) times a day as needed for anxiety 0 024 Active traZODone (DESYREL) 100 mg tabletIndications :insomnia associated with depression Take 3 tablets (300 mg total) by mouth nightly 024 Active multivitamin with minerals tabletIndications :Mineral Deficiency Prevention,Vitami n Deficiency Prevention Take 1 tablet by mouth daily before breakfast Active acetaminophen (TYLENOL) 325 mg tablet Take 2 tablets (650 mg total) by mouth every 6 (six) hours as needed for pain Active ondansetron (ZOFRAN) 4 mg tablet Take 1 tablet (4 mg total) by mouth every 8 (eight) hours as needed for nausea 12 tablet 025 Active docusate sodium (COLACE) 100 mg capsuleIndication s:constipation Take 1 capsule (100 mg total) by mouth 2 (two) times a day 14 capsule 025 Active oxyCODONE-acetami nophen (PERCOCET) 5-325 mg per tabletIndications :Pain Take 1 tablet by mouth every 6 (six) hours as needed for pain 20 tablet 025 Active losartan (COZAAR) 25 mg tablet TAKE 1 TABLET(25 MG) BY MOUTH DAILY 90 tablet 1 025 Active lisdexamfetamine (VYVANSE) 70 mg capsuleIndication s:Binge Eating Disorder Take 1 capsule (70 mg total) by mouth every morning 30 capsule 025 2024 Active escitalopram (LEXAPRO) 20 mg tabletIndications :Anxiety with Depression Take 1 tablet (20 mg total) by mouth every morning 023 2024 Discontinued(P atient Reported) lurasidone (LATUDA) 80 mg tabletIndications :Schizophrenia Take 2 tablets (160 mg total) by mouth nightly 023 2024 Discontinued(P atient Reported) lisdexamfetamine (VYVANSE) 50 mg capsuleIndication s:Binge Eating Disorder Take 1 capsule (50 mg total) by mouth every morning 30 capsule 025 2024 Discontinued Active Problems Problem Noted Date Diagnosed Date Chondral defect of right patella 01/27/2025 Urinary frequency 12/01/2024 Acute pain of right knee 12/01/2024 Left hip pain 12/01/2024 Nausea and vomiting 01/06/2024 Lung nodule 11/25/2023 Overview (11/29/2024): CT scan showed <3mm nodules No further follow up needed Assessment & Plan (11/25/2023 12:18 PM CDT): New concern Seen on xray Will need a ct scan in 1 year according to report Will scan report into the system Ct scan orderede Status post bariatric surgery 11/24/2023 Prediabetes 08/14/2023 Assessment & Plan (08/14/2023 12:05 PM 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): Lab Results Component Value Date HGBA1C 6.2 [...] stress disorder (PTSD) 04/07/2023 Schizoaffective disorder 04/07/2023 Arthritis 03/03/2023 Skin lesion of right leg 02/19/2023 Assessment & Plan (02/19/2023 9:49 AM CDT): New Low suspicion for cancer Possible ingrown hair Referral to derm given Blurry vision 12/27/2022 Assessment & Plan (12/27/2022 2:52 PM CDT): Follows with business dean for the dilation exam CT of the [...] february Assessment & Plan (09/04/2022 1:46 PM 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): Provoked dvt 2/2 foot surgery Continue xarelto [...] wnl Will continue to closely monitor Mother's warp picker recommended she come and be seen Encounter for wellness examination 11/13/2021 Assessment & Plan (11/30/2024 12:30 PM CDT): Labs reviewed and discussed Pap smear up to date tdap F/u in 1 year for annual Assessment & Plan (11/24/2023 12:45 PM CDT): [...] to GI Recurrent major depressive disorder, in remdanielio n 11/13/2021 Assessment & Plan (11/30/2024 12:30 PM CDT): Stable In remission Continue with lexapro 10mg daily Follows with psychiatry Assessment & Plan (11/24/2023 12:46 PM CDT): [...] (12/05/2020): Added automatically from request for surgery [id number] Calcaneal spur of left foot 12/05/2020 Overview (12/05/2020): Added automatically from request for surgery [id number] Pulsatile tinnitus of right ear 10/17/2020 Assessment [...] 08/21/2020 Assessment & Plan (08/21/2020 2:16 PM 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): Hearing test CT Angiogram Head and Neck [...] media 03/02/2019 ADHD 06/16/2018 Assessment & Plan (11/30/2024 12:30 PM CDT): Continue following with psych Assessment & Plan (11/24/2023 12:46 PM CDT): [...] 10/14/2014 Assessment & Plan (07/28/2020 8:38 AM 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): Due to history of headaches will provide [...] 05/19/2014 Assessment & Plan (08/14/2023 12:08 PM 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): EGD showed some gastritis but no signs of bleeding Colonoscopy showed some polyps Continue iron supplements and monitoring Assessment & Plan (11/05/2022 2:37 PM CDT): EGD and colonoscopy have been negative in the past She had iron transfusions in the past The work up has been negative Vitamin B12 deficiency 05/13/2014 Pain in left knee 09/10/2013 Bipolar 1 disorder Assessment & Plan (11/30/2024 12:30 PM CDT): Stable Follows with psychiatry Continue with vraylar 4.5mg daily Assessment & Plan (11/24/2023 12:46 PM CDT): Stable Follows with psychiatry Continue with vraylar 4.5mg daily Assessment & Plan (11/04/2022 9:29 PM CDT): Stable Follows with psychiatry Continue with vraylar 4.5mg daily Assessment & Plan (11/13/2021 10:45 AM CDT): Stable Follows with psychiatry Continue with vraylar 4.5mg daily Acute chest pain Gastroesophageal reflux disease without esophagi tis Assessment & Plan (11/30/2024 12:30 PM CDT): Continue pepcid Assessment & Plan (11/24/2023 12:46 PM CDT): [...] Continue cpap Primary hypertension Assessment & Plan (11/30/2024 12:30 PM CDT): Bp in the office today BP Readings from Last 1 Encounters: 06/03/24 136/82 Continue current regimen of lsoartan 25mg daily Recommend DASH diet, heart-healthy lifestyle, exercise. Discussed the risks of hypertension. F/u in 6 months Assessment & Plan (06/03/2024 12:10 PM 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): Bp in the office today BP Readings [...] months Assessment & Plan (08/14/2023 12:05 PM 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): Bp in the office today BP Readings [...] months Assessment & Plan (09/04/2022 1:54 PM 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): Bp in the office today BP Readings [...] cardiology Assessment & Plan (07/04/2023 8:04 AM 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): Chronic problem-worsening Patient is being scheduled for [...] scheduled Encounter for screening colonoscopy 04/25/2023 11/20/2023 Preop examination 03/10/2023 11/29/2024 Assessment & Plan (10/21/2023 3:37 PM CDT): [...] surgery Assessment & Plan (07/04/2023 8:13 AM 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): Pt comes in at behest of Dr. [...] to be seen again for preop clearance. BMI 60.0-69.9, adult 03/03/2023 024 Assessment & [...] (04/17/2021): Added automatically from request for surgery [id number] Morbid obesity with BMI of 50.0-59.9, adult [...] happy to make a referral for her down [facility] as we are not doing the bypass [...] Encounters Date Type Department Care Team Description 03/23/2025 1:30 PM CDT Office Visit [facility] [address] [place] [phone] Rosy Bonds MD Moderate binge-eating disorder (Primary Dx); Schizoaffective disorder, unspecified type (HCC) 03/16/2025 8:30 AM CDT Therapy [facility] [address] [place] [phone] Laina Terrell, PT History of knee surgery (Primary Dx) 03/09/2025 1:00 PM CDT Therapy [facility] [address] [place] [phone] Laina Terrell, PT History of knee surgery (Primary Dx) 03/02/2025 2:45 PM CDT Therapy [facility] [address] [place] [phone] Laina Terrell, PT History of knee surgery (Primary Dx); Right knee pain, unspecified chronicity 03/01/2025 Orders Only [facility] [address] [place] [phone] Rosy Bonds MD 02/24/2025 9:15 AM CDT Therapy [facility] [address] [place] [phone] Renea Menjivar, CRICKET History of knee surgery (Primary Dx); Right knee pain, unspecified chronicity 02/23/2025 2:40 PM CDT Office Visit [facility] [address] [place] [address] Dar Arteaga MD Right knee pain, unspecified chronicity (Primary Dx) 02/17/2025 8:00 AM CDT Therapy [facility] [address] [place] [phone] XanderLaina campos, PT Right knee pain, unspecified chronicity (Primary Dx) 02/17/2025 Plan of Care Documentation [facility] [address] [place] [phone] 02/15/2025 Orders Only [facility] [address] [place] [phone] Speedy Eisenberg BS Chondral defect of right patella (Primary Dx) 02/14/2025 10:45 AM CDT - 02/14/2025 12:15 PM CDT Surgery [facility] [address] [place] [phone] Dar Arteaga MD ARTHROSCOPY KNEE-evaluation and debridement of chondral surfaces, open lateral lengthening 02/14/2025 9:48 AM CDT Anesthesia Event [facility] [address] [place] [address] Kishore Plasencia MD McGowan, Jessica Lynn, NP 02/14/2025 8:14 AM CDT - 02/14/2025 1:05 PM CDT Hospital Encounter [facility] [address] [place] [phone] Dar Arteaga MD Chondral defect of right patella [M23.8X1] (Primary Dx) Discharge Disposition: Discharge to home or self care 02/14/2025 Telephone [facility] [address] [place] [address] 2[address] [place] [phone] Dar Arteaga MD 02/14/2025 Orders Only [facility] [address] [place] [address] 2[address] [place] [phone] Dar Arteaga MD Right knee pain, unspecified chronicity (Primary Dx) 02/11/2025 Orders Only [facility] [address] [place] [address] 2nd Floor [address] [place] [phone] Dar Arteaga MD 02/02/2025 8:30 AM CDT Office Visit [facility] [address] [facility] [address] [place] [address] Rosy Bonds MD Schizoaffective disorder, unspecified type (HCC) (Primary Dx); Moderate binge-eating disorder 01/26/2025 2:40 PM CDT Office Visit [facility] [address] [place] [address] Floor [address] [place] [address] Dar Arteaga MD Right knee pain, unspecified chronicity (Primary Dx) 01/25/2025 11:00 AM CDT Office Visit [facility] [address] [place] [address] Floor [address] [place] [address] ScroginDelores, HYDRAULIC MECHANIC Metatarsalgia of left foot (Primary Dx); Pain in left foot; Pes planus of both feet 01/24/2025 3:55 PM CDT - 01/24/2025 11:59 PM CDT Hospital Encounter [address] [address] Right knee pain, unspecified chronicity Discharge Disposition: Discharge to home or self care 01/17/2025 11:00 AM CDT Therapy [facility] [address] [place] [phone] Katelyn Denny, PT Right knee pain, unspecified chronicity (Primary Dx); History of knee surgery; Left hip pain 01/12/2025 2:30 PM CDT Office Visit [facility] [address] [place] [address] Floor [address] [place] [address] Dar Arteaga MD Right knee pain, unspecified chronicity (Primary Dx) 01/12/2025 2:10 PM CDT - 01/12/2025 11:59 PM CDT Hospital Encounter [facility] [address] [place] [address] Right knee pain, unspecified chronicity Discharge Disposition: Discharge to home or self care 01/12/2025 Orders Only [facility] Orthopedic [facility] Sports Medicine [address] [place] [phone] Tyree Walker MD Tear of left acetabular labrum, initial encounter (Primary Dx) 01/11/2025 Results Follow-Up [facility] Primary Care at [address] [place] [address] Arun Covarrubias PA XR Knee Right 4+ Vw 01/10/2025 9:18 AM CDT - 01/10/2025 11:59 PM CDT Hospital Encounter [address] [address] Discharge Disposition: Discharge to home or self care 01/10/2025 9:05 AM CDT - 01/10/2025 11:59 PM CDT Hospital Encounter [address] [address] Acute pain of right knee Discharge Disposition: Discharge to home or self care 01/06/2025 8:20 AM CDT Telemedicine [facility] [address] [place] [address] Medical Office Building [address] [place] [phone] Donna Garay NP H/O gastric bypass (Primary Dx); Follow-up examination; Weight loss counseling, encounter for; Intestinal malabsorption, unspecified type 01/06/2025 Documentation [facility] [address] [place] [phone] Luciana Ball MA 01/06/2025 Results Follow-Up [facility] [address] [place] [phone] Florecita Franco MA MRI Hip Arthrogram Left W Contrast 01/04/2025 8:04 AM CDT - 01/04/2025 11:59 PM CDT Hospital Encounter [facility] [address] [place] [address] Pain of left hip; Crushing injury of left hip, initial encounter Discharge Disposition: Discharge to home or self care 01/04/2025 8:03 AM CDT - 01/04/2025 11:59 PM CDT Hospital Encounter [facility] [address] [place] [address] ValentinMaribel Rashid Pain of left hip; Crushing injury of left hip, initial encounter Discharge Disposition: Discharge to home or self care 12/30/2024 Documentation [facility] Sports Medicine and Primary Care at [address] [place] [phone] Florecita Franco MA 12/29/2024 2:35 PM CDT Ancillary Procedure [facility] Imaging at [address] [phone] Pain of left hip 12/29/2024 2:30 PM CDT Office Visit [facility] Sports Medicine and Primary Care at [address] [place] [phone] Eligio Perez DO Pain of left hip (Primary Dx); Crushing injury of left hip, initial encounter from Last 3 Months Immunizations Immunization Administration [...] SURGERY Bilateral 6 surgeries INCISION AND DRAINAGE ABSCES S / HEMATOMA OF BURSA / KNEE / THIGH PLANTAR FASCIA SURGERY 07/21/2023 - 07/20/2024 Bilateral KNEE ARTHROSCOPY COLONOSCOPY 07/21/2023 - 07/20/2024 TENDON REPAIR 07/21/2021 - 07/20/2022 peroneal brevis FOOT TENDON SURGERY 07/21/2022 - 07/20/2023 Right GASTRIC BYPASS 11/17/2023 ESOPHAGOGASTRODUODENOSCOPY 07/21/2023 - 07/20/2024 Medical History Medical History Date Comments Migraine Anemia Fatty liver Bipolar 1 disorder (HCC) Hypertension Depression Morbid obesity with BMI of 5 0.0-59.9, adult (HCC) Anxiety 2019 Arthritis 2008 Borderline personality disorder (HCC) 2002 Joint pain 2002 Low back pain 2020 Sleep apnea 2019 Schizo affective schizophrenia (HCC) Nausea and vomiting 01/06/2024 PONV (postoperative nausea and vomiting) nausea only PTSD (post-traumatic stress disorder) from previous knee surgery and being strapped down in the OR. She asks that she be sedated prior to any straps be placed. DVT (deep venous thrombosis) 2022 pos t op- xarelto x3 mo Family History Medical History Relation Name Comments Cirrhosis Brother 1 Norm jr Diabetes Brother 1 Norm jr Depression Brother 2 Norm Kidney disease Brother [...] Passive Smoke Exposure: Past Smokeless Tobacco: Never Tobacco Cessation:Counseling Given: Not Answered Alcohol Use Standard Drinks/Week Comments Yes 0 (1 standard drink = 0.6 oz pur e alcohol) AUDIT-C Answer Date Recorded Q1: How often do you have a drink containing alcohol? Never 02/14/2025 Q2: How many drinks containi ng alcohol do you have on a typical day when you are drinking? Patient does not drink Q3: How often do you have si x or more drinks on one occasion? Never 02/14/2025 PHQ-2 Answer Date Recorded PHQ-2 Total Score (If total score is 3 or more points, staff should administer the PHQ-9) 0 12/01/2024 Personal Safety Answer Date Recorded Have you ever been in or are you currently in a harmful physical or emotional relationship or is someone making you feel afraid or unsafe? Denies 02/14/2025 Comments No Sex and Gender Information Value Date Recorded Sex Assigned at Not on file Legal Sex Female 9:35 AM 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 Gender Identity Female 02/16/2020 8:04 AM CDT Sexual Orientation Lesbian 02/16/2020 8: 04 AM CDT Obstetrics History Last Filed Vital Signs Vital Sign Reading Time Taken Comments Blood Pressure 96/51 02/14/2025 12:35 PM CDT Pulse 50 02/14/2025 12:45 PM CDT Temperature 36.5 C (97.7 F) 02/14/2025 11:45 AM CDT Respiratory Rate 24 02/14/2025 12:4 5 PM CDT Oxygen Saturation 93% 02/14/2025 12: 45 PM CDT Inhaled Oxygen Concentration - - Weight 104.8 kg (231 lb 1.6 oz) 02/14/2025 8:26 AM CDT Height 154.9 cm (5' 1) 02/14/2025 8:26 AM CDT Body Mass Index 43.67 02/14/2025 8:26 AM CDT Plan of Treatment Health Maintenance Due Date Last Done Comments DTaP/Tdap/Td Vaccine (1 - Tdap) 1997 HPV Vaccines (1 - 3-dose SCDM series) 2013 Covid-19 Vaccine ( - 2025-26 season) 2025 11/27/2020, 10/30/2020 Influenza Vaccine (#1) 2025 , 03/21/2021, 06/04/2019, Additional history exists Depression Screening 12/01/2025 12/01/2024, 06/03/2024, 11/25/2023, Additional history exists Regular Well Visit/Exam 18-64 12/01/2025 12/01/2024, 11/25/2023, 11/05/2022, Additional history exists Cervical Cancer Screening 11/27/2026 11/27/2021 Pneumococcal vaccine <65 Aged Out 05/07/2014 No longer eligible based on patient's age to complete this topic Hepatitis B Screening Completed 11/23/2024 Hepatitis C Screening Completed 11/23/2024 Varicella Vaccines Discontinued Goals Goal Patient Goal Type Associated Problems [...] as needed Medical Devices Implanted Type Area Monument Carver Device Identifier Shelf Expiration Date Model / Serial / Lot [employer] Biological Bariatric Peristrip Non Crosslinked Bovine Pericardium For Endo Lorena Thin [id number] - [id number] Implanted:Qty: 1 on 11/17/2023 by Tello Pacheco MD at [facility] N/A: Stomach [employer] 07/09/2025 [id number] / / [id number] [employer] Biological Bariatric Peristrip Non Crosslinked Bovine Pericardium For Endo Lorena Thin [id number] - [id number] Implanted:Qty: 1 on 11/17/2023 by Tello Pacheco MD at [facility] N/A: Stomach [employer] 07/09/2025 [id number] / / [id number] Procedures Procedure Name Priority Date/Time Associated Diagnosis Comments WY AN PROCEDURE PLACEHOLDER Routine 02/14/2025 10:11 AM CDT [place] AN ELECTIVE SUPRAGLOTTIC AIRWAY Routine 02/14/2025 10:11 AM CDT ARTHROSCOPY KNEE 02/14/2025 9:52 AM CDT Chondral defect of right patella Case Notes 02/11@0633: equipment lists added to special needs section. BR01/27@1148: 30 minutes added to case per OC scheduling standard. BR Special Needs BMI 45.5 per CPAP. Approved for the OC by Dr Liang per TM- 02/08/25- ADPTSD/ClaustrophobiaParker - Right knee arthroscopic evaluation and debridement of patella, open lateral lengtheningPosition: supine, post Equipment: Getachew Craig re: 3-0 Monocryl, 2-0 Ethibond, 2-0 VicrylDME: None POCT HCG, URINE Routine 02/14/2025 8:35 AM CDT MRI KNEE RIGHT WO CONTRAST Schedule Routine, Read Routine (OP Routine) 01/24/2025 4:47 PM CDT Right knee pain, unspecified chronicity XR KNEE RIGHT 3 VIEWS Schedule Routine, Read Routine (OP Routine) 01/12/2025 2:16 PM CDT Right knee pain, unspecified chronicity XR FOOT LEFT 3 OR MORE VIEWS Schedule Routine, Read Routine (OP Routine) 01/10/2025 9:31 AM CDT Pain in left foot XR KNEE RIGHT 4 OR MORE VIEWS Schedule Routine, Read Routine (OP Routine) 01/10/2025 9:30 AM CDT Acute pain of right knee MRI HIP ARTHROGRAM LEFT W CONTRAST Schedule Routine, Read Routine (OP Routine) 01/04/2025 9:30 AM CDT Pain of left hip Crushing injury of left hip, initial encounter INJECTION HIP LEFT ARTHRO ONLY Schedule Routine, Read Routine (OP Routine) 01/04/2025 8:57 AM CDT Pain of left hip Crushing injury of left hip, initial encounter XR HIP LEFT 2 OR 3 VIEWS Schedule Routine, Read Routine (OP Routine) 12/29/2024 2:44 PM CDT Pain of left hip HEPATITIS C ANTIBODY Routine 11/23/2024 10:11 AM CDT Need for hepatitis C screening test PAP AND HIGH RISK HPV, REFLEX TO GENOTYPING Routine 11/27/2021 11:20 AM CDT Cervical cancer screening from Last 3 Months or Most Recently Relevant to Health Maintenance Results * WY AN ELECTIVE SUPRAGLOTTIC AIRWAY, [place] AN PROCEDURE PLACEHOLDER (02/14/2025 10:11 AM CDT) Narrative Herbert Parkinson CRNA - 02/14/2025 10:11 AM CDT Herbert Parkinson CRNA 02/14/2025 10:12 AM Airway Patient location: OR Urgency: elective Date/time: 02/14/2025 9:57 AM Indications for airway management: anesthesia Difficult airway: no Staff: Supervising provider: Kishore Plasencia MD Placed by: ARTIST'S REPRESENTATIVE: Herbert Parkinson CRNA Emergent airway documentation: Risks and benefits discussed: yes Consent obtained: yes Consent given by: patient Airway prep: Preoxygenated: yes Patient position: sniffing Spontaneous ventilation during airway: absent Sedation level during airway: GA Final airway details: Final airway type: supraglottic airway Final supraglottic airway: unique SGA size: 4 Number of attempts: 1 Kishore Plasencia MD ANESTHESIA ORDERABLES Fi nal Result * POCT hCG, urine (02/14/2025 8:35 AM CDT) HCG, ur, POC Negative Negative Lot Number [id number] QC Backgroud Clear Acceptable QC Control Line Acceptable Urine 02/14/2025 8:35 AM CDT Vilma Harmon HYDRAULIC MECHANIC POINT OF CARE TEST ORDERA BLES Final Result * MRI Knee Right WO Contrast (01/24/2025 4:47 PM CDT) Anatomical Region Laterality Modality Lower Extremities Right Magnetic Reson ance 01/25/2025 9:39 AM CDT Narrative 01/25/2025 10:04 AM CDT EXAM DESCRIPTION: MRI KNEE RIGHT WO CONTRAST REASON FOR STUDY: evaluate for chondral flap 2 months ago heard a pop in her knee now hurts whenever she bears weight TECHNIQUE: Multiplanar, multisequence MRI of the right knee was performed without contrast. COMPARISON: Right knee radiographs January 12, 2025. FINDINGS: The cruciate and collateral ligaments are intact. Mild posterior root medial meniscus fraying. The medial articular cartilage is intact. The lateral meniscus and articular cartilage are intact. Moderate lateral subluxation of the patella and patella Oatman. The tibial tubercle trochlear groove distance measures 10 mm. The Salvador Alvarez index measures 1.5. Severe lateral patellar facet, moderate median ridge and mild trochlear and medial patellar facet chondrosis are present. Mild superolateral Hoffa's fat pad edema is present. No acute medial patellofemoral retinaculum tear. No fracture or aggressive marrow replacing lesion. Small knee joint effusion with synovitis. Trace Figueroa's cyst. No soft tissue mass. IMPRESSION: 1. Moderate lateral subluxation of the patella and patella Oatman with mild superolateral Hoffa's fat pad edema consistent with patellar maltracking/patellar tendon-lateral femoral condyle friction syndrome. Tibial tubercle trochlear groove distance 10 mm. Salvador Alvarez index 1.5. 2. Severe lateral patellar facet, moderate median ridge and mild trochlear and medial patellar facet chondrosis. 3. Small knee joint effusion. Trace Figueroa's cyst. THIS IS AN ELECTRONICALLY VERIFIED FINAL REPORT 01/25/2025 10:04 AM - Electronically signed by Raymundo Chambers M.D. TH: Report ID: [id number] Reading Location: [id number] Procedure Note Raymundo Chambers MD - 01/25/2025 EXAM DESCRIPTION: MRI KNEE RIGHT WO CONTRAST REASON FOR STUDY: evaluate for chondral flap 2 months ago heard a pop in her knee now hurts whenever she bears weight TECHNIQUE: Multiplanar, multisequence MRI of the right knee wasperformed without contrast. COMPARISON: Right knee radiographs January 12, 2025. FINDINGS: The cruciate and collateral ligaments are intact. Mild posterior root medial meniscus fraying. The medial articularcartilage is intact. The lateral meniscus and articular cartilage are intact. Moderate lateral subluxation of the patella and patella Angie. The tibial tubercle trochlear groove distance measures 10 mm. The Salvador Deschampsindex measures 1.5. Severe lateral patellar facet, moderate median ridge andmild trochlear and medial patellar facet chondrosis are present. Mild superolateral Hoffa's fat pad edema is present. No acute medial patellofemoral retinaculum tear. No fracture or aggressive marrow replacing lesion. Small knee joint effusion with synovitis. Trace Figueroa's cyst. No softtissue mass. IMPRESSION: 1. 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 Salvador Alvarez index 1.5. 2. Severe lateral patellar facet, moderate median ridge and mildtrochlear and medial patellar facet chondrosis. 3. Small knee joint effusion. Trace Figueroa's cyst. THIS IS AN ELECTRONICALLY VERIFIED FINAL REPORT 01/25/2025 10:04 AM - Electronically signed by Raymundo Chambers M.D. TH: Report ID: [id number] Reading Location: [id number] us Dar Arteaga MD IMG MRI PROCEDURES Fin al Result * XR Knee Right 3 View (01/12/2025 2:16 PM CDT) Anatomical Region Laterality Modality Lower Extremities, Knee Right Computed Radiography 01/12/2025 3:06 PM CDT Impressions 01/12/2025 3:22 PM CDT 1. Small knee joint effusions and without acute osseous abnormality. 2. Mild to moderate patellofemoral osteoarthritis. Dictated by: Les Bhagat M.D. The radiology attending physician has personally reviewed this study, and had reviewed and/or edited this written report and agrees with it. Electronically signed by: Fredis Barriga D.O. Narrative 01/12/2025 3:22 PM CDT EXAMINATION: XR KNEE RIGHT 3 VIEWS HISTORY: Right knee pain FINDINGS: 3 radiographs of the right knee are submitted with comparison to 01/10/2025 radiographs. There is normal alignment of the right knee. No acute fracture or dislocation. Mild to moderate patellofemoral compartment osteoarthritis. There is small knee effusion. Procedure Note Fredis Barriga, DO - 01/12/2025 EXAMINATION: XR KNEE RIGHT 3 VIEWS HISTORY: Right knee pain FINDINGS: 3 radiographs of the right knee are submitted with comparison to 01/10/2025 radiographs. There is normal alignment of the right knee. No acute fracture or dislocation. Mild to moderate patellofemoral compartment osteoarthritis. There is small knee effusion. IMPRESSION: 1. Small knee joint effusions and without acute osseous abnormality. 2. Mild to moderate patellofemoral osteoarthritis. Dictated by: Les Bhagat M.D. The radiology attending physician has personally reviewed this study, and had reviewed and/or edited this written report and agrees with it. Electronically signed by: Fredis Barriga D.O. Dar Arteaga MD IM XR PROCEDURES Cady l Result * XR Foot Left 3+ View (01/10/2025 9:31 AM CDT) Anatomical Region Laterality Modality Lower Extremities, Foot Left Computed Radiography 01/10/2025 4:56 PM CDT Narrative 01/10/2025 4:58 PM CDT EXAM DESCRIPTION: 1. XR KNEE RIGHT 4 OR MORE VIEWS; 2. XR FOOT LEFT 3 OR MORE VIEWS REASON FOR STUDY: Knee pain, initial exam Hx. Of prior knee surg. While stretching, pt. [place] a pop, pain in middle of knee. ; Pain in Foot, Left, WB/pain Hx. Of prior foot surgeries. Pain to lateral aspect of foot. FINDINGS: Four views right knee and three views left foot submitted without comparison. Right knee: No acute fracture. Mild medial and patellofemoral bicompartmental bilateral knee osteoarthritis. Small knee effusion. Alignment is normal. Left foot: No acute fracture. Mild midfoot osteoarthritis is present. Mild pes planus. Tiny heel spur and Achilles enthesophyte are present. IMPRESSION: 1. Mild medial and patellofemoral bicompartmental right knee osteoarthritis with a small effusion. 2. Mild left pes planus with midfoot osteoarthritis. THIS IS AN ELECTRONICALLY VERIFIED FINAL REPORT 01/10/2025 4:58 PM - Electronically signed by Eligio Ward M.D. MF: HELIO Report ID: [id number] Reading Location: [place] [id number] Procedure Note Eligio Ward MD - 01/10/2025 EXAM DESCRIPTION: 1. XR KNEE RIGHT 4 OR MORE VIEWS; 2. XR FOOT LEFT 3 OR MORE VIEWS REASON FOR STUDY: Knee pain, initial exam Hx. Of prior knee surg. While stretching, pt. [place] a pop, pain in middleof knee. ; Pain in Foot, Left, WB/pain Hx. Of prior foot surgeries. Pain to lateral aspect of foot. FINDINGS: Four views right knee and three views left foot submitted withoutcomparison. Right knee: No acute fracture. Mild medial and patellofemoral bicompartmentalbilateral knee osteoarthritis. Small knee effusion. Alignment is normal. Left foot: No acute fracture. Mild midfoot osteoarthritis is present. Mild pesplanus. Tiny heel spur and Achilles enthesophyte are present. IMPRESSION: 1. Mild medial and patellofemoral bicompartmental right kneeosteoarthritis with a small effusion. 2. Mild left pes planus with midfoot osteoarthritis. THIS IS AN ELECTRONICALLY VERIFIED FINAL REPORT 01/10/2025 4:58 PM - Electronically signed by Eligio Ward M.D. MF: HELIO Report ID: [id number] Reading Location: [place] [address] Delores Davis [employer] IMG XR PROCEDURES Final Result * XR Knee Right 4+ Vw (01/10/2025 9:30 AM CDT) Anatomical Region Laterality Modality Lower Extremities, Knee Right Computed Radiography 01/10/2025 4:56 PM CDT Narrative 01/10/2025 4:58 PM CDT EXAM DESCRIPTION: 1. XR KNEE RIGHT 4 OR MORE VIEWS; 2. XR FOOT LEFT 3 OR MORE VIEWS REASON FOR STUDY: Knee pain, initial exam Hx. Of prior knee surg. While stretching, pt. [place] a pop, pain in middle of knee. ; Pain in Foot, Left, WB/pain Hx. Of prior foot surgeries. Pain to lateral aspect of foot. FINDINGS: Four views right knee and three views left foot submitted without comparison. Right knee: No acute fracture. Mild medial and patellofemoral bicompartmental bilateral knee osteoarthritis. Small knee effusion. Alignment is normal. Left foot: No acute fracture. Mild midfoot osteoarthritis is present. Mild pes planus. Tiny heel spur and Achilles enthesophyte are present. IMPRESSION: 1. Mild medial and patellofemoral bicompartmental right knee osteoarthritis with a small effusion. 2. Mild left pes planus with midfoot osteoarthritis. THIS IS AN ELECTRONICALLY VERIFIED FINAL REPORT 01/10/2025 4:58 PM - Electronically signed by Eligio Ward M.D. MF: HELIO Report ID: [id number] Reading Location: [id number] Procedure Note Eligio Ward MD - 01/10/2025 EXAM DESCRIPTION: 1. XR KNEE RIGHT 4 OR MORE VIEWS; 2. XR FOOT LEFT 3 OR MORE VIEWS REASON FOR STUDY: Knee pain, initial exam Hx. Of prior knee surg. While stretching, pt. [place] a pop, pain in middleof knee. ; Pain in Foot, Left, WB/pain Hx. Of prior foot surgeries. Pain to lateral aspect of foot. FINDINGS: Four views right knee and three views left foot submitted withoutcomparison. Right knee: No acute fracture. Mild medial and patellofemoral bicompartmentalbilateral knee osteoarthritis. Small knee effusion. Alignment is normal. Left foot: No acute fracture. Mild midfoot osteoarthritis is present. Mild pesplanus. Tiny heel spur and Achilles enthesophyte are present. IMPRESSION: 1. Mild medial and patellofemoral bicompartmental right kneeosteoarthritis with a small effusion. 2. Mild left pes planus with midfoot osteoarthritis. THIS IS AN ELECTRONICALLY VERIFIED FINAL REPORT 01/10/2025 4:58 PM - Electronically signed by Eligio Ward M.D. MF: HELIO Report ID: [id number] Reading Location: [id number] us Faye Paul MD IMG XR PROCEDURES Fin al Result * MRI Hip Arthrogram Left W Contrast (01/04/2025 9:30 AM CDT) Anatomical Region Laterality Modality Lower Extremities Left Magnetic Reson ance 01/04/2025 2:52 PM CDT Narrative 01/04/2025 2:57 PM CDT EXAM DESCRIPTION: MRI HIP ARTHROGRAM LEFT W CONTRAST REASON FOR STUDY: left hip pain Fell down stairs 1 month ago TECHNIQUE: Multiplanar, multisequence MRI of the left hip and pelvis was performed with intra-articular contrast. Details of the arthrogram injection are dictated separately. COMPARISON: Left hip and pelvis radiographs 12/29/2024. FINDINGS: No fracture, osteonecrosis or aggressive marrow replacing lesion. The sacroiliac joints are intact. Mild pubic symphysis arthrosis. Injected contrast is present in the left hip joint. Anterosuperior acetabular labrum tear is present. Left hip articular cartilage is intact. The ligamentum teres is intact. Alpha angle 57 degrees. Right hip articular cartilage is intact. Mild bilateral greater trochanteric bursal edema. The gluteal, hamstring and iliopsoas tendons are intact. No soft tissue mass. 3.2 cm right ovarian cyst is present. Cervical cysts are present. The visualized portions of the sciatic nerves are normal in appearance. IMPRESSION: 1. Anterosuperior left acetabular labrum tear. Cam morphology of the left femoral head neck junction. 2. Mild bilateral greater trochanteric bursal edema. 3. Mild pubic symphysis arthrosis. THIS IS AN ELECTRONICALLY VERIFIED FINAL REPORT 01/04/2025 2:57 PM - Electronically signed by Raymundo Chambers M.D. TH: TH Report ID: [id number] Reading Location: [id number] Procedure Note Raymundo Chambers MD - 01/04/2025 EXAM DESCRIPTION: MRI HIP ARTHROGRAM LEFT W CONTRAST REASON FOR STUDY: left hip pain Fell down stairs 1 month ago TECHNIQUE: Multiplanar, multisequence MRI of the left hip and pelvis was performed with intra-articular contrast. Details of the arthrograminjection are dictated separately. COMPARISON: Left hip and pelvis radiographs 12/29/2024. FINDINGS: No fracture, osteonecrosis or aggressive marrow replacing lesion. The sacroiliac joints are intact. Mild pubic symphysis arthrosis. Injected contrast is present in the left hip joint. Anterosuperioracetabular labrum tear is present. Left hip articular cartilage is intact. The ligamentum teres is intact. Alpha angle 57 degrees. Right hip articular cartilage is intact. Mild bilateral greater trochanteric bursal edema. The gluteal, hamstringand iliopsoas tendons are intact. No soft tissue mass. 3.2 cm right ovariancyst is present. Cervical cysts are present. The visualized portions of the sciatic nerves are normal in appearance. IMPRESSION: 1. Anterosuperior left acetabular labrum tear. Cam morphology of theleft femoral head neck junction. 2. Mild bilateral greater trochanteric bursal edema. 3. Mild pubic symphysis arthrosis. THIS IS AN ELECTRONICALLY VERIFIED FINAL REPORT 01/04/2025 2:57 PM - Electronically signed by Raymundo Chambers M.D. TH: TH Report ID: [id number] Reading Location: [id number] Eligio Perez DO IMG MRI PROCEDURES Fin al Result * Injection Hip Left Arthro Only (01/04/2025 8:57 AM CDT) Anatomical Region Laterality Modality Hip Left Radio Fluoroscop y 01/04/2025 9:02 AM CDT Narrative 01/04/2025 9:03 AM CDT EXAM DESCRIPTION: INJECTION HIP LEFT ARTHRO ONLY HISTORY: left hip pain Fell down stairs 1 month ago .30 min ft 6.96 mgy Fluoroscopy Dose: Dose: 6.9638 mGy Reference Air Kerma (Ka,r) COMPARISON: 12/29/2024 PROCEDURE: Risks, benefits, and alternatives of the procedure were explained to the patient and informed consent was obtained. All questions answered. The area was prepped and draped in usual sterile fashion. 1% lidocaine was utilized for local anesthetic. A 22-gauge spinal needle was advanced into the left hip joint from an anterior approach under fluoroscopic guidance. A small amount of Omnipaque 240 was injected to confirm intra-articular placement. Then 12 mL of a solution composed of 5 mL Omnipaque 240, 10 mL sodium chloride, 5 mL 0.2% ropivacaine , and 0.1 mL gadolinium was injected into the joint space under fluoroscopy. Fluoroscopic images were obtained to document the procedure. There were no immediate complications. The patient tolerated the procedure well and was transferred to the MRI department for further imaging. MRI results are reported separately. IMPRESSION: Technically successful left hip injection for MR arthrogram. THIS IS AN ELECTRONICALLY VERIFIED FINAL REPORT 01/04/2025 9:03 AM - Electronically signed by Haim Harris M.D. NS: NS Report ID: [id number] Reading Location: [id number] Procedure Note Haim Harris MD - 01/04/2025 EXAM DESCRIPTION: INJECTION HIP LEFT ARTHRO ONLY HISTORY: left hip pain Fell down stairs 1 month ago .30 min ft 6.96 mgy Fluoroscopy Dose: Dose: 6.9638 mGy Reference Air Kerma (Ka,r) COMPARISON: 12/29/2024 PROCEDURE: Risks, benefits, and alternatives of the procedure wereexplained to the patient and informed consent was obtained. All questions answered. The area was prepped and draped in usual sterile fashion. 1% lidocainewas utilized for local anesthetic. A 22-gauge spinal needle was advanced intothe left hip joint from an anterior approach under fluoroscopic guidance. A small amount of Omnipaque 240 was injected to confirm intra-articular placement. Then 12 mL of a solution composed of 5 mL Omnipaque 240, 10mL sodium chloride, 5 mL 0.2% ropivacaine , and 0.1 mL gadolinium wasinjected into the joint space under fluoroscopy. Fluoroscopic images were obtainedto document the procedure. There were no immediate complications. The patient tolerated the procedure well and was transferred to the MRI department for further imaging. MRI results are reported separately. IMPRESSION: Technically successful left hip injection for MR arthrogram. THIS IS AN ELECTRONICALLY VERIFIED FINAL REPORT 01/04/2025 9:03 AM - Electronically signed by Haim Harris M.D. NS: NS Report ID: [id number] Reading Location: [place] [address] Eligio Perez DO IMG XR PROCEDURES Cady l Result * XR Hip Left 2 or 3 Views (12/29/2024 2:44 PM CDT) Anatomical Region Laterality Modality Lower Extremities, Hip, Pelvis Left D igital Radiography 12/29/2024 9:13 PM CDT Narrative 12/29/2024 9:14 PM CDT EXAM DESCRIPTION: XR HIP LEFT 2 OR 3 VIEWS REASON FOR STUDY: pain Pt complains of hip pain x 1 month. Pt fell x 1 month ago. Posterior pain through hip joint. No prior surgery TECHNIQUE: Single radiographic view(s) of the pelvis and two views of the left hip. . COMPARISON: No prior. FINDINGS: Pelvis: Normal mineralization. No acute fracture or dislocation. Sacroiliac joints, pubic symphysis are unremarkable. Mild osteoarthritis right hip. Soft tissues are unremarkable. Left hip: No fracture or dislocation. Mild osteoarthritis left hip. Soft tissues are unremarkable. IMPRESSION: 1. No acute fracture. 2. Mild osteoarthritis bilateral hips. THIS IS AN ELECTRONICALLY VERIFIED FINAL REPORT 12/29/2024 9:14 PM - Electronically signed by Eligio Sams M.D. MJ T: Report ID: [id number] Reading Location: [id number] Procedure Note Eligio Sams MD - 12/29/2024 EXAM DESCRIPTION: XR HIP LEFT 2 OR 3 VIEWS REASON FOR STUDY: pain Pt complains of hip pain x 1 month. Pt fell x 1 month ago. Posterior pain through hip joint. No prior surgery TECHNIQUE: Single radiographic view(s) of the pelvis and two views ofthe left hip. . COMPARISON: No prior. FINDINGS: Pelvis: Normal mineralization. No acute fracture or dislocation. Sacroiliacjoints, pubic symphysis are unremarkable. Mild osteoarthritis right hip. Soft tissues are unremarkable. Left hip: No fracture or dislocation. Mild osteoarthritis left hip. Soft tissues are unremarkable. IMPRESSION: 1. No acute fracture. 2. Mild osteoarthritis bilateral hips. THIS IS AN ELECTRONICALLY VERIFIED FINAL REPORT 12/29/2024 9:14 PM - Electronically signed by Eligio Sams M.D. MJ T: Report ID: [id number] Reading Location: [id number] Eligio Perez DO IMG XR PROCEDURES Cady l Result * Hepatitis C antibody Blood (11/23/2024 10:11 AM CDT) Hep C Ab Nonreactive Nonreactive Comment: Interpretive Data Nonreactive: Antibodies to HCV not detected. Does NOT exclude the possibility of recent exposure to HCV. Equivocal: Equivocal for HCV antibodies. Supplemental molecular testing will be automatically performed to determine infection status in accordance with current CDC screening recommendations. Reactive: Positive for HCV antibodies. This may represent current or past HCV infection. Supplemental molecular testing will be automatically performed to determine current infection status in accordance with current CDC screening recommendations. Interpretive data was last revised on 2019. Testing performed by: [facility], [address] [place] [address]., [id number] Blood 11/23/2024 10:1 1 AM CDT 11/23/2024 7:26 PM CDT Narrative TOMEKA BARTH (SOFIA) - 11/23/2024 8:43 PM CDT FASTING Faye Paul MD LAB MICROBIOLOGY - [facility] ORDERABLES Final Result TOMEKA BARTH ([place]) 1 [facility] Department [place] [address] * Pap and High Risk HPV, reflex to Genotyping (11/27/2021 11:20 AM CDT) Thin prep (Pap test) 11/27/2021 11:20 AM CDT 11/27/2021 11:20 AM CDT Narrative PATHOLOGY - 11/29/2021 1:40 PM CDT [facility] Department of Pathology [address] [place] [id number] Final Report with Addendum Note to [...] Name: MIRA CURRY [address]: [address] [place] [address] Gender: F : 1985 (Age: 36) Service: Laboratory Location: Lab [facility] #: [id number] Patient Type: Ref Lab Taken: 11/27/2021 Received: 11/27/2021 Accessioned:: 11/28/2021 Reported: 11/29/2021 Physician(s): Rudy Ramires M.D. Diagnosis: Source of Specimen: SCREENING THIN PREP IMAGED PAP w/ HPV Specimen Adequacy: - Specimen satisfactory for interpretation; endocervical/transformation zone component absent or insufficient General Category: - Negative for intraepithelial lesion or malignancy CB Faulkner(ASCP) Report Electronically Reviewed and Signed Out By CB Faulkner(ASCP) 11/29/2021 13:40:06 Addenda: HPV Test Interpretation NEGATIVE for types 16, 18, 31, 33, 35, 39, 45, 51, 52, 56, 58, 59, 66 and 68. Test performed utilizing Gen-Probe Aptima assay. CB Pena(ASCP) Report Electronically Reviewed and Signed Out By CB Pena(ASC) 11/29/2021 13:41:22 Specimen(s) Received: A: SCREENING THIN [...] determined by the Surgical Pathology Department at [facility] as part of an ongoing cloth tester quality program and in compliance with federally mandated [...] characteristics determined by the Surgical Pathology Department [facility]. It has not been cleared or approved by the U. S. Food and Drug Administration. Faye Paul MD LAB CYTOLOGY [place] [address] [place] [address] from Last 3 Months or Most Recently Relevant to Health Maintenance Insurance [id number] [place] [address] [facility] [id number] [place] [address] Advance Directives For more information, please contact: [phone] * Full Code (Latest Code Status on [...] 11:59 AM 04/24/2021 6:48 PM Care Teams Lab Clerk Relationship Specialty Start Date End Date Faye Paul MD [address] [place] [id number] PCP - General Family Medicine 08/30/24 Sabrina Ferreira, JERE Consulting Physician Foot and Ankle Surg 08/09/22 Laina Terrell, PT Physical Therapist Physical Therapy 11/27/22 Kenia Villagomez MD PhD [address] [address] Dermatology 11/21/23 Tello Pacheco MD [facility] [id number] [place] [address] Referring Physician General Surgery 11/21/23 Katelyn Denny PT Physical Therapist Physical Therapy 01/13/25
--- OUTSIDE RECORDS SUMMARY | 2025-03-31 10:07 | XMS_ITS | Encounter Summary ---
Author Organization [facility] Address [address] [place] [address] Care Team Providers Care Cash Analyst Name Role Phone Kaila Hernandez Primary Care Provider [phone] Helga Wilks PA-C Primary Care Provider [phone] Nomi Barbosa MD Primary Care Provider [phone] Encounter Details Date Type Department Care Team (Late st Contact Info) Description 11/23/2019 Friend Travelert Message Enc [facility] Family & Internal Medicine [facility] [address] [place] [address] Kaila Hernandez APNP [phone] [address] RE: Follow Up/Update Social History [...] Sex Assigned at Female 07/22/2018 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
--- OUTSIDE RECORDS SUMMARY | 2025-03-31 10:07 | XMS_ITS | Encounter Summary ---
Author Organization [facility] Address [address] [place] [address] Care Team Providers Care Property And Equipment Clerk Name Role Phone Kaila Hernandez Primary Care Provider [phone] Helga Wilks PA-C Primary Care Provider [phone] Nomi Barbosa MD Primary Care Provider [phone] Encounter Details Date Type Department Care Team (Late st Contact Info) Description 08/06/2019 MyCProteoSenset Message Enc [facility] Medical Group Family & Internal Medicine [facility] [address] [place] [address] Kaila Hernandez APNP [address] [address] RE: Referral Request Social History [...] Sex Assigned at Female 07/22/2018 9:07 AM ADMINISTRATIVE TECHNICIAN Legal Sex Female 7:37 PM CDT Gender Identity Female 07/22/2018 9:07 AM ADMINISTRATIVE TECHNICIAN Sexual Orientation Lesbian or Hutchison 03/23/2019 2: 09 PM CDT documented as of this encounter Plan of Treatment Not on file documented as of this encounter Visit Diagnoses Not on filedocumented in this encounter Additional Health Concerns Infection Onset Date Last Indicated Resolved Time C. difficile 02/28/2017 02/28/2017 documented as of this encounter Care Teams Property And Equipment Clerk Relationship Specialty Start Date End Date Kaila Hernandez APNP [address] [facility] [address] [place] [address] PCP - General Nurse Practitioner Family 07/05/1902/19 Helga Wilks PA-C [address] [address] PCP - General PHYSICIAN COMPLIANCE REVIEWER 03/10/23 10/13/24 [place] [address] [facility] [address] [place] [address] PCP - General INTERNAL MEDICINE 10/14/24 documented as of this encounter
--- OUTSIDE RECORDS SUMMARY | 2025-03-31 10:07 | XMS_ITS | Clinical Summary ---
Author Organization [facility] Address [address] [place] [address] Care Team Providers Care Studio Assistant Name Role Phone Nomi Barbosa MD Primary Care Provider [phone] Allergies Active Allergy Reactions Criticality Noted Date [...] Vitamin B12 deficiency 05/13/2014 Bipolar 1 disorder ([facility]) 04/05/2014 Pain in left knee 09/10/2013 Resolved Problems Problem Noted Date Diagnosed Date Resolved Date Foot pain 06/16/2018 03/20/2019 Need for influenza vaccination 05/14/2018 03/31/2020 Encounter for preventive health examination 09/23/2012 03/31/2020 Immunizations Immunization Administration Dates Next Due Fluarix 03/29/2014 Fluzone [...] Sex Assigned at Female 07/22/2018 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 Legal Sex Female 7:37 PM CDT Gender Identity Female 07/22/2018 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 Sexual Orientation Lesbian or Hutchison 03/23/2019 2: [...] 2:55 PM CDT Height 156.2 cm (5' 1.5) 04/13/2020 2:55 PM CDT Body Mass Index 56.7 04/13/2020 2:55 PM CDT Plan of Treatment Health Maintenance Due Date Last Done Comments Cervical Cancer Screening Pa p Smear (Age 30 to 64) Every 3 Years 1986 Annual Physical 1989 Hepatitis C 2004 DTaP, Tdap and Td Vaccines ( 1 - Tdap) 2005 Hepatitis B Vaccines (1 of 3 - 19+ 3-dose series) 2005 HPV Vaccines (1 - 3-dose SCD M series) 2013 Cervical Cancer Screening Pa ryann with HPV Testing (Age 30 to 64) Every 5 Years 2016 Cervical Cancer Screening with HPV 2016 COVID-19 Vaccine (1 - 2023-2 5 season) 2025 Pneumococcal Vaccine: Pediat rics (0 to 5 Years) and At-Risk Patients (6 to 49 Years) Aged Out 05/07/2014 No longer eligi ble based on patient's [...] 9:13 AM 03/23/2019 1:01 PM Care Teams Studio Assistant Relationship Specialty [place] [address] [place] [address] PCP - General INTERNAL MEDICINE 10/14/24
--- OUTSIDE RECORDS SUMMARY | 2025-03-31 10:07 | XMS_ITS | Encounter Summary ---
Author Organization [facility] Address [address] [place] [address] Care Team Providers Care Student Ministries Director Name Role Phone Kaila Hernandez Primary Care Provider [phone] Helga Wilks PA-C Primary Care Provider [phone] Nomi Barbosa MD Primary Care Provider [phone] Encounter Details Date Type Department Care Team (Late st Contact Info) Description 12/22/2019 DiscoveRXt Message Enc [facility] Medical Group Family & Internal Medicine [facility] [address] [place] [address] Kaila Hernandez APNP [address] [address] RE: Question Social History Tobacco [...] Sex Assigned at Female 07/22/2018 9:07 AM MACHINING SUPERVISOR Legal Sex Female 7:37 PM CDT Gender Identity Female 07/22/2018 9:07 AM MACHINING SUPERVISOR Sexual Orientation Lesbian or Hutchison 03/23/2019 2: [...] VV with Kaila. Thanks. [email or web address] * Kimmie Holm, CLARISSE - 12/23/2019 10:23 AM CDT Please advise. documented in this encounter Plan of Treatment Not on file documented as of this encounter Visit Diagnoses Not on filedocumented in this encounter Additional Health Concerns Infection Onset Date Last Indicated Resolved Time C. difficile 02/28/2017 02/28/2017 documented as of this encounter Care Teams Student Ministries Director Relationship Specialty Start Date End Date Kaila Hernandez APNP [address] [address] PCP - General Nurse Practitioner Family 07/05/1902/19 Helga Wilks PA-C [address] [address] PCP - General PHYSICIAN BARIATRIC PROGRAM COORDINATOR 03/10/23 10/13/24 [place] Barb[place] [address] [facility] [address] [place] [address] PCP - General INTERNAL MEDICINE 10/14/24 documented as of this encounter
--- OUTSIDE RECORDS SUMMARY | 2025-03-31 10:07 | XMS_ITS | Encounter Summary ---
Author Organization [facility] Address [address] [place] [address] Care Team Providers Care Jewel Bearing Facer Name Role Phone Kaila Hernandez Primary Care Provider [phone] Helga Wilks PA-C Primary Care Provider [phone] Nomi Barbosa MD Primary Care Provider [phone] Encounter Details Date Type Department Care Team (Late st Contact Info) Description 08/05/2019 MyChart Message Enc [facility] Medical Group Family & Internal Medicine [facility] [address] [place] [address] Kaila Hernandez APNP [address] [address] RE: Medication Questions Social History [...] Sex Assigned at Female 07/22/2018 9:07 AM SUPERVISING DEPUTY Legal Sex Female 7:37 PM CDT Gender Identity Female 07/22/2018 9:07 AM SUPERVISING DEPUTY Sexual Orientation Lesbian or Hutchison 03/23/2019 2: 09 PM CDT documented as of this encounter Progress Notes * CANDELARIO Lazaro - 08/09/2019 12:20 PM CST Let's try aripiprazole (Abilify) 15mg daily #30. I will see her back in a month to see how it is working. Thank you. RVISING DEPUTY * Ariella Hopkins RN - 08/09/2019 9:33 AM CST Please advise on what medication you would like to try pt on. Thanks! RVISING DEPUTY documented in this encounter Plan of Treatment Not on file documented as of this encounter Visit Diagnoses Not on filedocumented in this encounter Additional Health Concerns Infection Onset Date Last Indicated Resolved Time C. difficile 02/28/2017 02/28/2017 documented as of this encounter Care Teams Jewel Bearing Facer Relationship Specialty Start Date End Date Kaila Hernandez APNP [address] [address] PCP - General Nurse Practitioner Family 07/05/1902/19 Helga Wilks, BYRONC [address] [address] PCP - General PHYSICIAN ALCOHOLIC COUNSELOR 03/10/23 10/13/24 [place] [address] [address] PCP - General INTERNAL MEDICINE 10/14/24 documented as of this encounter
--- OUTSIDE RECORDS SUMMARY | 2025-03-31 10:07 | XMS_ITS | Encounter Summary ---
Author Organization [facility] Address [address] [place] [address] Care Team Providers Care High Density Press Operator Name Role Phone Kaila Hernandez Primary Care Provider [phone] Helga Wilks PA-C Primary Care Provider [phone] Nomi Barbosa MD Primary Care Provider [phone] Encounter Details Date Type Department Care Team (Late st Contact Info) Description 02/20/2020 MyChart Message Enc [facility] Medical Group Family & Internal Medicine [facility] [address] [place] [address] Kaila Hernandez APNP [address] [address] RE: Question Social History Tobacco [...] Sex Assigned at Female 07/22/2018 9:07 AM CLAY STAIN MIXER Legal Sex Female 7:37 PM CDT Gender Identity Female 07/22/2018 9:07 AM CLAY STAIN MIXER Sexual Orientation Lesbian or Hutchison 03/23/2019 2: [...] documented as of this encounter Care Teams High Density Press Operator Relationship Specialty Start Date End Date Kaila Hernandez APNP [address] [address] PCP - General Nurse Practitioner Family 07/05/1902/19 Helga Wilks, PAMalissaC [address] [address] PCP - General PHYSICIAN SENIOR OFFICER 03/10/23 10/13/24 [place] [address] [address] PCP - General INTERNAL MEDICINE 10/14/24 documented as of this encounter
--- OUTSIDE RECORDS SUMMARY | 2025-03-31 10:07 | XMS_ITS | Encounter Summary ---
Author Organization [facility] Address [address] [place] [address] Care Team Providers Care Jewel Inspector Name Role Phone Kaila Hernandez Primary Care Provider [phone] Helga Wilks PA-C Primary Care Provider Nomi Barbosa MD Primary Care Provider [phone] Reason for Referral * Surgical (Routine) - Closed Specialty Diagnoses / Procedures Referred By Landen kemp Referred To Contact Diagnoses Tarsal tunnel syndrome, left lower limb [id number]----[id number] WAS CANCELED Procedures Case request operating room: RELEASE TARSAL TUNNEL ([id number]) SURGERY WAS CANCELED. PT. COULD NOT GET SURGICAL CLEARANCE Jose Ramsey DPM Phone: tel: fax: Jose Ramsey DPM Phone: tel: fax: Referral ID Status Reason Start Date Expiration Date Visits Re quested Visits Authorized [id number] Closed 02/01/2020 03/03/2021 1 1 Encounter Details Date Type Department Care Team (Late st Contact Info) Description 02/01/2020 Prep for Procedure [facility] Medical Group Foot [facility] Ankle Specialists [facility] [id number] [place] [phone] Jose Ramsey DPM [address] [place] [phone] Social History Tobacco Use Types Packs/Day Years [...] Sex Assigned at Female 07/22/2018 9:07 AM AUTOMOBILE MECHANIC APPRENTICE Legal Sex Female 7:37 PM CDT Gender Identity Female 07/22/2018 9:07 AM AUTOMOBILE MECHANIC APPRENTICE Sexual Orientation Lesbian or Hutchison 03/23/2019 2: [...] as of this encounter Care Teams Jewel Inspector Relationship Specialty Start Date End Date Kaila Hernandez APNP [address] [facility] [address] [place] [address] PCP - General Nurse Practitioner Family 07/05/1902/19 Helga Wilks PA-C [address] [facility] [address] [place] [id number] PCP - General PHYSICIAN ADVERTISING DIRECTOR 03/10/23 10/13/24 [place] [address] [facility] [address] [place] [address] PCP - General INTERNAL MEDICINE 10/14/24 documented as of this encounter
== END 2025-03-31 09:57 | disposition home or self-care (01) ==
PROVIDERS: Emergency Provider Nurse Practitioner; PCP Family Medicine
DX: L03.012 Cellulitis of left finger (principal); M17.0 Bilateral primary osteoarthritis of knee; Z87.891 Personal history of nicotine dependence
CPT/HCPCS: 10060; 87070; 87075; 87186; 99213; G0463